=== PATIENT | female | born 1960 | race Caucasian/White ===

== ENCOUNTER 2023-02-12 19:49 | Outpatient (REF) | payer OTHER, SELFPAY ==
[2023-02-19 09:12] LABS: Age Gdln ACOG Testing Note (.); HPV Aptima Negative (Negative); IGP, Aptima HPV, rfx 16/18,45 Note (.)
== END 2023-02-12 19:50 | disposition home or self-care (01) ==
LOC: LAB 19:49
PROVIDERS: PCP Family Medicine; Visit Provider Physician Assistant
DX: Z12.4 Encounter for screening for malignant neoplasm of cervix (principal)
CPT/HCPCS: 87624; G0145

== ENCOUNTER 2023-12-28 07:45 | Outpatient (OUT) | payer OTHER, SELFPAY ==
--- NOTE | 2023-12-28 07:47 | MM_ITS ---
Patient Name: RUY NUNEZ MR#: [id number] : 1960 Exam Date: 12/28/2023 Ordering Doctor: DR Ramon Andrew . RADIOLOGY REPORT PROCEDURE: MM TOMOSYNTHESIS SCREENING BI COMPARISON: MG MAMM SCREEN 3D KAE CAD, 12/25/2021. MG MAMM SCREEN 3D KAE CAD, 12/26/2022. INDICATIONS: Screening Calculator Name NCI Breast Cancer Risk Assessment Tool 5 Year Breast Cancer Risk 1.40% Lifetime Breast Cancer Risk 5.80% Personal Breast Cancer No Personal Ovarian Cancer No Treatments None Family Cancers Father with colon cancer at age 48. LOCATION: [facility] BREAST COMPOSITION: There are scattered areas of fibroglandular density. FINDINGS: DIAGNOSTIC CATEGORY 2--BENIGN FINDING. NO CHANGE FROM COMPARISON. Scattered benign-appearing calcifications are present. RIGHT BREAST: No significant suspicious finding. LEFT BREAST: No significant suspicious finding. Stable focal asymmetry upper inner quadrant, mid breast RECOMMENDATIONS: ROUTINE MAMMOGRAM AND CLINICAL EVALUATION IN 12 MONTHS. PLEASE NOTE: A NORMAL MAMMOGRAM DOES NOT EXCLUDE THE POSSIBILITY OF BREAST CANCER. A CLINICALLY SUSPICIOUS PALPABLE LUMP SHOULD BE BIOPSIED. Dictated by: Prince Us MD on 12/28/2023 at 09:59 Approved by: Prince Us MD on 12/28/2023 at 10:01
== END 2023-12-28 07:46 | disposition home or self-care (01) ==
LOC: MAMMO 07:45
PROVIDERS: PCP Family Medicine; Visit Provider Family Medicine
DX: Z12.31 Encounter for screening mammogram for malignant neoplasm of breast (principal); Z80.0 Family history of malignant neoplasm of digestive organs
CPT/HCPCS: 77063; 77067

== ENCOUNTER 2024-01-14 07:25 | Outpatient (OUT) | payer OTHER, SELFPAY ==
--- OUTSIDE RECORDS SUMMARY | 2024-01-14 07:29 | XMS_ITS | CCD ---
Author Organization [facility] Care Team Providers Care Economic Adviser Name Role Phone MACI ., DR MENDOZA Primary Care Unavailable MACI ., DR MENDOZA Consulting Unavailable MACI Baptiste, DR MENDOZA Attending Unavailable MACI ., DR MENDOZA Admitting Unavailable WES, DR LASHA Stevens Consulting Unavailable Problems Problem Classification Problem Date Documented Da te Episodic/Chronic Other screening for suspected conditions (not mental disorders or infectious disease) (4 sources) Encounter for screening mammogram for malignant neoplasm of breast; Translations: [ENC SCR MAMMO MALIG NEOPLASM BREAST] Onset: 12-26-2022 Episodic Residual codes; unclassified (1 source) Family history of malignant neoplasm of digestive organs; Translations: [FAM HX MALIG NEOPLASM DIGESTIV ORGN] Onset: 12-31-2022 Episodic Results Test Name Value Interpretation Reference Range Facil ity MG MAMM SCREEN 3D KAE CADon 12-26-2022 MG MAMM SCREEN 3D KAE CAD Patient: RUY NUNEZ. Exam Date: 12/26/2022 : 1960 Gender:F Ordering : DR KELLY LUX . Admission #: [id number] Family : Order #: [id number] CLICK HERE TO VIEW EXAM RADIOLOGY REPORT PROCEDURE: MAMMOGRAM SCREENING 3D BILATERAL CAD COMPARISON: MG MAMM SCREEN 3D KAE CAD, 12/25/2021. MG MAMM SCREEN 3D KAE CAD, 12/06/2020. MG MAMM SCREEN KAE W CAD, 11/19/2018. MG MAMM SCREEN KAE W CAD, 11/17/2017. INDICATIONS: Screening mammography Calculator Name NCI Breast Cancer Risk Assessment Tool 5 Year Breast Cancer Risk 1.40% Lifetime Breast Cancer Risk 6.00% Personal Breast Cancer No Personal Ovarian Cancer No Treatments None Family Cancers Father with colon cancer at age 48. LOCATION: [facility] BREAST COMPOSITION: Scattered areas fibroglandular density. FINDINGS: DIAGNOSTIC CATEGORY 2--BENIGN FINDING: RIGHT BREAST: No significant suspicious finding. No significant change has occurred. LEFT BREAST: No significant suspicious finding. Scattered benign-appearing lymph nodes are present. No significant change has occurred. RECOMMENDATIONS: ROUTINE MAMMOGRAM AND CLINICAL EVALUATION IN 12 MONTHS. PLEASE NOTE: A NORMAL MAMMOGRAM DOES NOT EXCLUDE THE POSSIBILITY OF BREAST CANCER. A CLINICALLY SUSPICIOUS PALPABLE LUMP SHOULD BE BIOPSIED. Dictated by: Lasha Hernandez M.D. on 12/29/2022 at 11:48 Approved by: Lasha Hernandez M.D. on 12/29/2022 at 11:[address] [facility] Encounters Encounter Date Encounter Type Care Provider Facility Start: 12-26-2022 End: 12-27-[address] KELLY LUX . Facility: Payers Date Payer Category Payer Unknown [id number] Unknown [id number] Summary Purpose Family History No Family History Records Found Advance Directives No Advanced Directives Records Found Additional Source Comments INFORMATION SOURCE (unrecogn ized section and content) DATE CREATED AUTHOR 01/01/2023 [facility] FOR RECORDS PERTAINING TO PATIENTS WHO ARE OR HAVE BEEN ENROLLED IN A CHEMICAL DEPENDENCY/SUBSTANCEABUSE PROGRAM, SOME INFORMATION MAY BE OMITTED. This clinical summary was aggregated from multiple sources. Caution should be exercised in using it in the provision of clinical care. This summary normalizes information from multiple sources, and as a consequence, information in this document may materially change the coding, format and clinical context of patient data. In addition, data may be omitted in some cases. CLINICAL DECISIONS SHOULD BE BASED ON THE PRIMARY CLINICAL RECORDS. [employer] provides no warranty or guarantee of the accuracy or completeness of information in this document.
[2024-01-14 07:43] LABS: Basophils Absolute Auto 0.1 10^3/uL (0.0-0.1); Basophils Percent Auto 1.2 % (0.2-2.0); Eosinophils Absolute Auto 0.3 10^3/uL (0.0-0.7); Eosinophils Percent Auto 4.4 % (0.9-7.0); Hematocrit 39.4 % (36.0-48.0); Immature Granulocytes Abs Auto 0.02 10^3/uL (0.00-0.03); Immature Granulocytes Pct Auto 0.3 % (0.0-0.5); Lymphocytes Absolute Auto 2.3 10^3/uL (1.2-3.8); Lymphocytes Percent Auto 34.6 % (20.5-60.0); Mean Corpuscular Hemoglobin 30.3 pg (26.7-34.0); Mean Corpuscular Volume 91.8 fL (81.0-99.0); Mean Platelet Volume 8.6 fL (9.5-13.5); Monocytes Absolute Auto 0.5 10^3/uL (0.3-0.8); Monocytes Percent Auto 7.4 % (1.7-12.0); Neutrophils Absolute Auto 3.4 10^3/uL (1.4-6.5); Neutrophils Percent Auto 52.1 % (43.0-75.0); Platelet Count 262 10^3/uL (150-450); Red Blood Count 4.29 10^6/uL (4.20-5.40); White Blood Count 6.5 10^3/uL (4.0-11.0)
[2024-01-14 08:11] LABS: Estimated Average Glucose 117 mg/dL; Glycohemoglobin A1C 5.7 % (4.5-6.2)
[2024-01-14 10:19] LABS: Alanine Aminotransferase 25 U/L (14-59); Albumin Level 3.6 g/dL (3.4-5.0); Alkaline Phosphatase 59 U/L (46-116); Anion Gap 12.2; Aspartate Amino Transferase 16 U/L (15-37); BUN Creatinine Ratio 23.5; Bilirubin Total 0.5 mg/dL (0.2-1.0); Calcium 9.2 mg/dL (8.5-10.1); Chloride 107 mmol/L (98-107); Cholesterol 143 mg/dL (<=200); Estimated GFR (African America >60 (>=60); Estimated GFR (Non-African Ame >60 (>=60); Globulin 3.6 g/dL; Glucose 117 mg/dL (74-106); HDL Cholesterol 48 mg/dL (40-60); LDL Cholesterol Calculated 70.6 mg/dL; Potassium 4.2 mmol/L (3.5-5.1); Sodium 143 mmol/L (136-145); Thyroid Stimulating Hormone 1.654 uIU/mL (0.358-3.740); Total Protein 7.2 g/dL (6.4-8.2); Triglycerides 122 mg/dL (<=150); VLDL CHOLESTEROL 24.4 mg/dL
== END 2024-01-14 07:26 | disposition home or self-care (01) ==
LOC: LAB 07:27
PROVIDERS: PCP Family Medicine; Visit Provider Family Medicine
DX: E78.5 Hyperlipidemia, unspecified (principal); D64.9 Anemia, unspecified; Z79.899 Other long term (current) drug therapy; R53.83 Other fatigue
CPT/HCPCS: 36415; 80053; 80061; 83036; 83540; 84436; 84443; 84481; 85025

== ENCOUNTER 2024-04-14 18:35 | Outpatient (REF) | payer OTHER, SELFPAY ==
--- OUTSIDE RECORDS SUMMARY | 2024-04-14 18:40 | XMS_ITS | CCD ---
Author Organization [facility] Care Team Providers Care Assistant Cook Name Role Phone MACI ., DR MENDOZA [...] : DR KELLY LUX . Admission #: [id number] Family : Order #: [id number] CLICK HERE TO VIEW EXAM RADIOLOGY REPORT [...] colon cancer at age 47. LOCATION: [facility] BREAST COMPOSITION: Scattered areas fibroglandular density. FINDINGS: [...] Hernandez M.D. on 12/29/2022 at 11:50 Normal [facility] Encounters Encounter Date Encounter Type Care Provider Facility Start: 12-26-2022 End: 12-27-[address] KELLY LUX . Facility: Payers Date Payer Category Payer Unknown [id number] Unknown [id number] Summary Purpose Family History No Family History Records Found Advance Directives No Advanced Directives Records Found Additional Source Comments INFORMATION SOURCE (unrecogn ized section and content) DATE CREATED AUTHOR 01/01/2023 [facility] FOR RECORDS PERTAINING TO PATIENTS WHO [...] BE BASED ON THE PRIMARY CLINICAL RECORDS. [employer] provides no warranty or guarantee of the accuracy or completeness of information in this document.
[2024-04-20 08:13] LABS: Age Gdln ACOG Testing Note (.); HPV Aptima Negative (Negative); IGP, Aptima HPV, rfx 16/18,45 Note (.)
== END 2024-04-14 18:36 | disposition home or self-care (01) ==
LOC: LAB 18:35
PROVIDERS: PCP Family Medicine; Visit Provider Obstetrics & Gynecology
DX: Z01.419 Encounter for gynecological examination (general) (routine) without abnormal findings (principal)
CPT/HCPCS: 88175

== ENCOUNTER 2024-04-22 07:43 | Outpatient (OUT) | payer OTHER, SELFPAY ==
--- OUTSIDE RECORDS SUMMARY | 2024-04-22 07:45 | XMS_ITS | CCD ---
Author Organization [facility] Care Team Providers Care Directional Survey Drafter Name Role Phone MACI Baptiste, DR MENDOZA Primary Care Unavailable MACI ., DR MENDOZA Consulting Unavailable MACI Baptiste, DR MENDOZA Attending Unavailable MACI ., DR MENDOZA Admitting Unavailable WES, DR LASHA Stevens Consulting Unavailable SHANDA PARR Attending Unavailable Problems Problem Classification Problem Date Documented [...] : DR KELLY LUX . Admission #: [id number] Family : Order #: [id number] CLICK HERE TO VIEW EXAM RADIOLOGY REPORT [...] colon cancer at age 47. LOCATION: [facility] BREAST COMPOSITION: Scattered areas fibroglandular density. FINDINGS: [...] Hernandez M.D. on 12/29/2022 at 11:50 Normal [facility] Encounters Encounter Date Encounter Type Care Provider Facility Start: 04-14-2024 End: 04-14-2024 ambulatory SHANDA PARR Not Available Start: 12-26-2022 End: 12-27-[address] KELLY LUX . Facility: Payers Date Payer Category Payer Unknown [id number] 1960 Unknown [id number] 1960 Unknown [id number] Unknown [id number] Summary Purpose Family History No Family History Records FoundNo Family History Records Found Advance Directives No Advanced Directives Records FoundNo Advanced Directives Records Found Additional Source Comments INFORMATION SOURCE (unrecogn ized section and content) DATE CREATED AUTHOR 01/01/2023 [facility] DATE CREATED AUTHOR AUTHOR'S ORGANIZ ATION 04/16/2024 [facility] FOR RECORDS PERTAINING TO PATIENTS WHO ARE [...] BE BASED ON THE PRIMARY CLINICAL RECORDS. [employer] provides no warranty or guarantee of the accuracy or completeness of information in this document.
--- NOTE | 2024-04-22 07:50 | XR_ITS ---
[address] [address] Patient Name: RUY NUNEZ MRN: [id number] date: 1960 Sex: F Assigned Patient Location: [facility] Current Patient Location: Accession/Order Number: [id number] Exam Date: 04/22/2024 07:55 Report Date: 04/26/2024 04:25 At the request of: SHANDA PARR Procedure: XR DEXA axial skeleton EXAMINATION: XR DEXA axial skeleton HISTORY: Postmenopausal State Z78.0 COMPARISON: DEXA bone densitometry 11/17/2018 TECHNIQUE: Dual-energy X-ray absorptiometry (DXA) was performed. FINDINGS: SPINE ANALYSIS: Average bone mineral density is 0.853 g/cm2. T-score (standard deviation relative to young adult mean): -2.7 . +3.1% change since prior study. HIP ANALYSIS: Lowest bone mineral density is within the right femoral neck, 0.873 g/cm2. T-score (standard deviation relative to young adult mean): -1.2 . -2.0% change since prior study. XR/XR DEXA axial skeleton IMPRESSION: World Health Organization Classification: Osteoporosis - High Fracture Risk FRAX: Cannot calculate. Pharmacologic treatment recommendations * No uniform recommendation applies to all patients. Management plans must be individualized. * Consider initiating pharmacologic treatment in postmenopausal women and men >= 50 years of age who have the following: Primary fracture prevention: * T-score <= - 2.5 at the femoral neck, total hip, lumbar spine, 33% radius (some uncertainty with existing data) by DXA. * Low bone mass (osteopenia: T-score between - 1.0 and - 2.5) at the femoral neck or total hip by DXA with a 10-year hip fracture risk >= 3% or a 10-year major osteoporosis-related fracture risk >= 20% (i.e., clinical vertebral, hip, forearm, or proximal humerus) based on the [place]-adapted FRAXregistered model. Secondary fracture prevention: * Fracture of the hip or vertebra regardless of BMD [4, 5]. * Fracture of proximal humerus, pelvis, or distal forearm in persons with low bone mass (osteopenia: T-score between - 1.0 and - 2.5). The decision to treat should be individualized in persons with a fracture of the proximal humerus, pelvis, or distal forearm who do not have osteopenia or low BMD [12, 13]. Zoran MS, Simone SL, Joel KL, Elise EM, Eric KG, AJ, Mustapha ES. The clinician's guide to prevention and treatment of osteoporosis. Osteoporos Int. 2021;33(10):5952-5175. doi: 10.1007/c76259-821-38171-l. Epub 2021Dec 19. Erratum in: Osteoporos Int. 2021Mar 20;: PMID: [id number]; PMCID: [id number]. Electronically authenticated by: MANDY HARVEY Date: 04/26/2024 04:25
== END 2024-04-22 07:44 | disposition home or self-care (01) ==
LOC: RAD 07:43
PROVIDERS: PCP Family Medicine; Visit Provider Obstetrics & Gynecology
DX: M81.0 Age-related osteoporosis without current pathological fracture (principal); Z78.0 Asymptomatic menopausal state
CPT/HCPCS: 77080

== ENCOUNTER 2024-06-01 07:34 | Outpatient (RCR) | payer OTHER, SELFPAY ==
[2024-06-01 08:21] VITALS: BP 101/63; PULSE 73; TEMP 37; O2SAT 96
[2024-06-01 08:24] LABS: Calcium 9.2 mg/dL (8.5-10.1); Estimated GFR (African America >60 (>=60 mL/min/1.73m^2); Estimated GFR (Non-African Ame 55 (>=60 mL/min/1.73m^2)
[2024-06-01] MEDS: DENOSUMAB 60 MG/ML SYRINGE SUBQ (09:13)
== END 2024-06-23 23:59 | disposition home or self-care (01) ==
LOC: INF 07:34
PROVIDERS: PCP Family Medicine; Visit Provider Obstetrics & Gynecology
DX: M81.0 Age-related osteoporosis without current pathological fracture (principal); Z78.0 Asymptomatic menopausal state
CPT/HCPCS: 36415; 82310; 82565; 96372; J0897

== ENCOUNTER 2024-12-05 07:32 | Outpatient (RCR) | payer MEDICARE, SELFPAY ==
[2024-12-05 09:05] VITALS: BP 103/59; PULSE 79; TEMP 37.1; O2SAT 95
[2024-12-05 09:12] LABS: Calcium 8.7 mg/dL (8.5-10.1); Estimated GFR (African America >60 (>=60 mL/min/1.73m^2); Estimated GFR (Non-African Ame >60 (>=60 mL/min/1.73m^2)
[2024-12-05] MEDS: DENOSUMAB 60 MG/ML SYRINGE SUBQ (09:39)
== END 2024-12-05 11:32 | disposition home or self-care (01) ==
LOC: LAB 07:32
PROVIDERS: PCP Family Medicine; Visit Provider Obstetrics & Gynecology
DX: Z51.81 Encounter for therapeutic drug level monitoring (principal); M81.0 Age-related osteoporosis without current pathological fracture
CPT/HCPCS: 36415; 82310; 82565; 96372; J0897

== ENCOUNTER 2025-01-02 07:49 | Outpatient (OUT) | payer MEDICARE, SELFPAY ==
--- NOTE | 2025-01-02 07:54 | MM_ITS ---
Patient Name: RUY NUNEZ MR#: [id number] : 1960 Exam Date: 01/02/2025 Ordering Doctor: DR KELLY LUX . RADIOLOGY REPORT PROCEDURE: MM TOMOSYNTHESIS SCREENING BI COMPARISON: MM TOMOSYNTHESIS SCREENING BI, 12/28/2023. MG MAMM SCREEN 3D KAE CAD, 12/26/2022. MG MAMM SCREEN 3D KAE CAD, 12/25/2021. MG MAMM SCREEN KAE W CAD, 11/17/2017. INDICATIONS: Screening Calculator Name NCI Breast Cancer Risk Assessment Tool 5 Year Breast Cancer Risk 1.50% Lifetime Breast Cancer Risk 5.60% Personal Breast Cancer No Personal Ovarian Cancer No Treatments None Family Cancers Father with colon cancer at age 48. LOCATION: [facility] BREAST COMPOSITION: There are scattered areas of fibroglandular density. FINDINGS: DIAGNOSTIC CATEGORY 0--INCOMPLETE: NEED ADDITIONAL IMAGING EVALUATION. RIGHT BREAST: No significant suspicious finding. LEFT BREAST: Asymmetry superior aspect of the left breast posterior depth on MLO view only. RECOMMENDATIONS: ADDITIONAL MAMMOGRAPHIC VIEWS REQUIRED: LEFT BREAST - spot-compression/true lateral views, possible ultrasound recommended. PLEASE NOTE: A NORMAL MAMMOGRAM DOES NOT EXCLUDE THE POSSIBILITY OF BREAST CANCER. A CLINICALLY SUSPICIOUS PALPABLE LUMP SHOULD BE BIOPSIED. Dictated by: Sami Russo DO on 01/02/2025 at 15:35 Approved by: Sami Russo DO on 01/02/2025 at 15:41
--- OUTSIDE RECORDS SUMMARY | 2025-01-02 08:07 | XMS_ITS | CCD ---
Author Organization [facility] Care Team Providers Care Level Vial Inspector And Tester Name Role Phone DR KELLY KENDALL Primary Care Unavailable MACI Baptiste, DR MENDOZA Consulting Unavailable DR KELLY KENDALL Attending Unavailable MACI Baptiste, DR MENDOZA Admitting Unavailable WES, DR LASHA Stevens Consulting Unavailable SHANDA PHILIP Attending Unavailable Kelly Andrew MD Primary Care Provider [phone] Medications Current Medications Medication Drug Class(es) Dates Sig (Normalized) Sig (Original) ascorbic acid 60 mg / cholecalciferol 0.01 mg / folic acid 0.3 mg / niacin 13.5 mg / riboflavin 1.2 mg / sodium fluoride 0.55 mg / thiamine 1.05 mg / vitamin a 0.75 mg / vitamin b12 0.0045 mg / vitamin b6 1.05 mg / vitamin e 6.75 mg chewable tablet (6 sources) Nicotinic Acid, Vitamin A, Vitamin B12, Vitamin D, Vitamin C Pediatric Multivitamins-Fl (MultiVitamin + Fluoride) 0.25 MG chewable tablet Multivitamin Active atorvastatin 20 mg oral tablet (6 sources) HMG-CoA Reductase Inhibitor Start: 10-14-2024 take 1 tablet by mouth once daily in the evening atorvastatin (Lipitor) 20 MG tablet Indications: Hyperlipidemia, unspecified hyperlipidemia type (CMS/HCC) TAKE 1 TABLET BY MOUTH EVERY DAY IN THE EVENING 90 tablet 2 10/14/2024 Active Start: 02-29-2024 take 1 tablet by akil th once daily in the evening atorvastatin (Lipitor) 20 MG tablet Indications: Hyperlipidemia, unspecified hyperlipidemia type (CMS/HCC) TAKE 1 TABLET BY MOUTH EVERY DAY IN THE EVENING 90 tablet 02/29/2024 Active citalopram 20 mg oral tablet (6 sources) Serotonin Reuptake Inhibitor Start: 02-15-2024 End: 07-11-2025 take 1 tablet by mouth in the morning citalopram (CeleXA) 20 MG tablet Indications: Anxiety, generalized (CMS/HCC) Take 1 tablet (20 mg) by mouth in the morning. 90 tablet 2 10/14/2024 07/11/2025 Active Problems Active Problems Problem Classification Problem Date Documented Da te Episodic/Chronic Residual codes; unclassified (1 source) Family history of malignant neoplasm of digestive organs; Translations: [FAM HX MALIG NEOPLASM DIGESTIV ORGN] Onset: 12-31-2022 Episodic Past or Other Problems Problem Classification Problem Date Documented Date Episodic/Chronic Other screening for suspected conditions (not mental disorders or infectious disease) (6 sources) Encounter for screening mammogram for malignant neoplasm of breast; Translations: [Patient encounter status] Onset: 12-26-2022 Episodic Residual codes; unclassified (2 sources) Postmenopausal state; Translations: [Asymptomatic menopausal state] 04-14-2024 Episodic Results Test Name Value Interpretation Reference Range Facility [facility] CALCIUMon 12-05-2024 Calcium [Mass/Vol] 8.7 mg/dL 8.5 - 10. 1 mg/dL [facility] No Panel Informationon 12-05 [facility] CREATININEon 12-05-2024 Creatinine [Mass/Vol] 0.92 mg/dL 0.55 - 1.02 mg/dL [facility] GFR/1.73 sq M.predicted CKD-EPI (S/P/Bld) [Vol rate/Area] >60 >=60 mL/min/1.73m 2 [facility] EGFR-NON AF CITIZ[place] >60 >=60 mL/min/1.73m 2 [facility] CALCIUMon 06-01-2024 Calcium [Mass/Vol] 9.2 mg/dL 8.5 - 10. 1 mg/dL [facility] No Panel Informationon 06-01 [facility] CREATININEon 06-01-2024 Creatinine [Mass/Vol] 1.01 mg/dL 0.55 - 1.02 mg/dL [facility] GFR/1.73 sq M.predicted CKD-EPI (S/P/Bld) [Vol rate/Area] >60 >=60 mL/min/1.73m 2 [facility] Interpretation and review of laboratory results Abnormal [facility] EGFR-NON AF CITIZ[place] 55 Low >=60 mL/min/1.73m 2 [facility] IGP,APTIMA HPV,AGE GDLNon AGE GDLN ACOG TESTING Note . [facility] Comment on above: TESTS RESULT FLAG UN ITS REF RANGE LAB Clinician Provided Cytology Information Source.............Vagina No. of containers..01 ThinPrep Vial Age Algo ACOG Nathalie... FLAG LEGEND: L-Low Normal,H-High Normal,LL-Alert Low,HH-Alert High <-Panic Low,>-Panic High,A-Abnormal,AA-Critical Abnormal Performed at: 01 =G [address] [address] Fela Avendano MD, HPV APTIMA Negative Negative [facility] Comment on above: This nucleic acid am plification test detects fourteen high- risk HPV types (16,18,31,33,35,39,45,51,52,56,58,59,66,68) without differentiation. Performed at: =[address] [id number] Furniture Crater: Fela Avendano MD, Phone: [phone] Performed at: [address] [id number] Furniture Crater: Fela Avendano MD, Phone: [phone] IGP, APTIMA HPV, RFX 16/18,45 Note . [facility] Comment on above: TESTS RESULT FLAG UN ITS REF RANGE LAB DIAGNOSIS: 02 NEGATIVE FOR INTRAEPITHELIAL LESION OR MALIGNANCY. Specimen adequacy: 02 Satisfactory for evaluation. Performed by: Teodoro Leach Surveying Crew Stake Runner (ASC) . 02 Note: Note 02 The Pap smear is a screening test designed to aid in the detection of premalignant and malignant conditions of the uterine cervix. It is not a diagnostic procedure and should not be used as the sole means of detecting cervical cancer. Both false-positive and false-negative reports do occur. Test Methodology: Note 02 This liquid based ThinPrep(R) pap test was screened with the use of an image guided system. HPV Genotype Reflex Note 02 Criteria not met, HPV Genotype not performed. FLAG LEGEND: L-Low Normal,H-High Normal,LL-Alert Low,HH-Alert High <-Panic Low,>-Panic High,A-Abnormal,AA-Critical Abnormal Performed at: 02 [facility] [address] [place] [address] Fela Avendano MD, SPATULA-ALONE VAGINA [facility]M SCREEN 3D KAE CADon 12-26-2022 MG MAMM SCREEN 3D KAE CAD Patient: PINO NEALSe Tapia Exam Date: 12/26/2022 : 1960 Gender:F Ordering : DR KELLY ANDREW . Admission #: [id number] Family : Order #: [id number] CLICK HERE TO VIEW EXAM RADIOLOGY REPORT [...] colon cancer at age 47. LOCATION: [facility] BREAST COMPOSITION: Scattered areas fibroglandular density. [...] M.D. on 12/29/2022 at 11:[address] [facility] Vital Signs Date Time Vital Sign Value Performing Clinician Marie benitez 04-14-2024 10:04-0400 Body height 167.6 cm [employer] Work Phone: [facility] 04-14-2024 10:04-0400 Body mass index (BMI) [Ratio] 27.76 kg/m2 [employer] Work Phone: [facility] 04-14-2024 10:04-0400 Body weight 78.02 kg [employer] Work Phone: [facility] 04-14-2024 10:04-0400 Diastolic blood pressure 64 mm[Hg] [employer] Work Phone: [facility] 04-14-2024 10:04-0400 Systolic blood pressure 110 mm[Hg] Shanda Cedrick DO Work Phone: [facility] Encounters Encounter Date Encounter Type Care Provider Facility Start: 12-05-2024 End: 12-05-2024 [facility] Result Encounter Shanda Cedrick DO Work Phone: [facility] Unsolicited Start: 12-05-2024 End: 12-05-2024 [facility] Result Encounter Shanda Cedrick DO Work Phone: [facility]solic[facility] Start: 06-01-2024 End: 06-01-2024 [facility] Result Encounter Shanda Cedrick DO Work Phone: [facility] Unsolicited Start: 06-01-2024 End: 06-01-2024 [facility] Result Encounter Shanda Cedrick DO Work Phone: [facility]solic[facility] Start: 04-14-2024 End: 04-14-2024 Bamboo flowsheet Shanda Cedrick DO Work Phone: [facility] Start: 04-14-2024 End: 04-20-2024 Bamboo flowsheet Shanda Cedrick DO Work Phone: [facility] Start: 04-14-2024 End: 04-20-2024 [facility] Result Encounter Shanda Cedrick DO Work Phone: [facility]solicited Start: 04-14-2024 End: 04-14-2024 Patient encounter procedure Shanda Cedrick DO Work Phone: [facility] Start: 04-14-2024 End: 04-14-2024 Periodic preventive med est patient 65yrs& older Shanda Cedrick DO Work Phone: [facility] Comment on above: Well woman exam with routine gynecological exam; Postmenopausal state; Breast cancer screening by mammogram Start: 04-14-2024 End: 04-14-2024 ambulatory SHANDA CEDRICK Not Available Start: 12-26-2022 End: 12-27-[address] KELLY ANDREW . Facility:[facility] Procedures Date Procedure Procedure Detail Performing Clinician Start: 12-05-2024 [facility] CALCIUM Shanda Fazi o DO Work Phone: Start: 12-05-2024 [facility] CREATININE Shanda Fa zio DO Work Phone: Start: 06-01-2024 [facility] CALCIUM Shanda Fazi o DO Work Phone: Start: 06-01-2024 [facility] CREATININE Shanda Fa zio DO Work Phone: Start: 04-14-2024 IGP,APTIMA HPV,AGE GDLN Shanda Cedrick DO Work Phone: Plan of Treatment Date Care Activity Detail Author Start: 04-14-2024 End: 04-14-2025 DXA Skeletal system Views for bone density DEXA bone density Imaging Routine Postmenopausal state Expected: 04/14/2024 (Approximate), Expires: [facility]14[facility]20[facility] Work Phone: Comment on above: Expected: 04/14/2024 (Approximate), Expires: 04/14/2025 Start: 04-14-2024 End: 04-14-2024 Patient encounter procedure 04/14/2024 10:00 AM EDT Office Visit [facility] [address] [place] [address] Cedrick Shanda, DO [address] [place] [address] Arrived [facility] Comment on above: Arrived THIN PREP TIS PAP AN D HR HPV DNA THIN PREP TIS PAP AND HR HPV DNA Pathology and Cytology Routine Well woman exam with routine gynecological exam Ordered: 04/14/2024 [facility] Comment on above: Ordered: 04/14/2024 Payers Date Payer Category Payer Medicare (Managed Care) [facility] [id number] 2024 Unknown [employer] [id number] 2024-Present [address] [place] [address] [id number] 2024 Unknown [id number] 1960 Unknown [id number] 1960 Unknown [id number] Unknown [id number] Social History Date Type Detail Facility Tobacco smoking stat [facility] Tobacco smoking consumption unknown [facility] Start: 1960 Sex assigned at Female [facility] Start: 02-11-2023 Gender identity Identifies as female gender (finding) [facility] Start: 02-11-2023 Sexual orientation Heterosexual (fin ding) [facility] History of Present illness Narrative 04-14-2024 Ilene Alicea LPN - 04/14/2024 10:00 AM EDT Note Date & Type Note Facility 04-14-2024 History of Presen t illness Narrative Reason for Appointment: Patient ID: Marcie Neal is a 64 y.o. female who presents for Well Women Visit Patient presents today for Annual Exam. MEDICATIONS Current Outpatient Medications Medication Instructions atorvastatin (LIPITOR) 20 mg, Oral, Every evening citalopram (CELEXA) 20 mg, Oral, Every morning Pediatric Multivitamins-Fl (MultiVitamin + Fluoride) 0.25 MG chewable tablet Multivitamin ALLERGIES No Known Allergies PROBLEMS Active Ambulatory Problems Diagnosis Date Noted No Active Ambulatory Problems Resolved Ambulatory Problems Diagnosis Date Noted No Resolved Ambulatory Problems No Additional Past Medical History HISTORY PAST MEDICAL HISTORY SOCIAL HISTORY No past medical history on file. Social History Tobacco Use Smoking status: Not on file Smokeless tobacco: Not on file Substance Use Topics Alcohol use: Not on file Drug use: Not on file FAMILY HISTORY Family History Problem Relation Name Age of Onset No Known Problems Mother Colon cancer Father No Known Problems Daughter No Known Problems Son SURGICAL HISTORY Past Surgical History: Procedure Laterality Date HYSTERECTOMY UVULOPALATOPHARYNGOPLASTY REVIEW OF SYSTEMS Review of Systems: Review of Systems All other systems reviewed and are negative. OBJECTIVE Objective: Physical Exam Constitutional: Appearance: Normal appearance. She is well-developed. Genitourinary: Vulva normal. Vaginal cuff intact. Cervix is not absent. Uterus is not absent. Breasts: Breasts are soft. Right: Normal. Left: Normal. Cardiovascular: Rate and Rhythm: Normal rate and regular rhythm. Abdominal: General: Bowel sounds are normal. There is no distension. Palpations: Abdomen is soft. Tenderness: There is no abdominal tenderness. There is no guarding or rebound. Musculoskeletal: General: No swelling. Normal range of motion. Right lower leg: No edema. Left lower leg: No edema. Neurological: Mental Status: She is alert and oriented to person, place, and time. Skin: General: Skin is warm and dry. Psychiatric: Mood and Affect: Mood normal. Behavior: Behavior normal. Vitals and nursing note reviewed. Exam conducted with a crm coordinator present. Vitals: Estimated body mass index is 27.76 kg/m as calculated from the following: Height as of this encounter: 5' 6 . Weight as of this encounter: 172 lb. BP: 110/64 No LMP recorded. Patient has had a hysterectomy. ASSESSMENT & PLAN ICD-10-CM 1. Well woman exam with routine gynecological exam Z01.419 THIN PREP TIS PAP AND HR HPV DNA 2. Postmenopausal state Z78.0 DEXA bone density 3. Breast cancer screening by mammogram Z12.31 CANCELED: Bilateral screening mammogram CANCELED: Bilateral screening mammogram Annual: Patient presents today for an annual exam. Patient states she is doing well and has no complaints. Pap was obtained without difficulty and patient given DEXA Scan order to have scheduled/obtained. Orders Placed This Encounter Procedures DEXA bone density Follow Up: Patient is to return in one year for annual unless needed otherwise. Documented by Ilene Alicea LPN on behalf of: Shanda Philip DO documented in this encounter [facility] Evaluation note Note Date & Type Note Facility Evaluation note Diagnosis Well woman exam with routine gynecological exam Routine gynecological examination Postmenopausal state Asymptomatic postmenopausal status (age-related) (natural) Breast cancer screening by mammogram documented in this encounter [facility] Summary Purpose Family History No Family History Records FoundNo Family History Records Found Advance Directives No Advanced Directives Records FoundNo Advanced Directives Records Found Additional Source Comments INFORMATION SOURCE (unrecogn ized section and content) DATE CREATED AUTHOR 01/01/2023 [facility] DATE CREATED AUTHOR AUTHOR'S ORGANIZ ATION 04/16/2024 [facility] Care Teams (unrecognized sec tion and content) Level Vial Inspector And Tester Relationship Specialty Start Date End Date Kelly Andrew MD [address] [place] [address] PCP - General Family Medicine 02/12/23 Level Vial Inspector And Tester Relationship Specialty Start Date End Date Kelly Andrew MD [address] [place] [address] PCP - General Family Medicine 02/12/23 Level Vial Inspector And Tester Relationship Specialty Start Date End Date Kelly Andrew MD [address] [place] [address] PCP - General Family Medicine 02/12/23 Reason for Visit (unrecogniz ed section and content) Reason Comments Well Women Visit FOR RECORDS PERTAINING TO PATIENTS WHO ARE [...] BE BASED ON THE PRIMARY CLINICAL RECORDS. [facility]. provides no warranty or guarantee of the accuracy or completeness of information in this document.
== END 2025-01-02 07:50 | disposition home or self-care (01) ==
LOC: MAMMO 07:49
PROVIDERS: PCP Family Medicine; Visit Provider Family Medicine
DX: Z12.31 Encounter for screening mammogram for malignant neoplasm of breast (principal); Z80.0 Family history of malignant neoplasm of digestive organs; R92.8 Other abnormal and inconclusive findings on diagnostic imaging of breast
CPT/HCPCS: 77063; 77067

== ENCOUNTER 2025-05-09 09:54 | Outpatient (OUT) | payer MEDICARE, SELFPAY ==
--- OUTSIDE RECORDS SUMMARY | 2025-05-09 09:57 | XMS_ITS | Encounter Summary ---
Author Organization [facility] Address [address] [place] [address] Care Team Providers Care Sales Assistant Entertainment And Media Name Role Phone Ramon Andrew MD Primary Care Provider [phone] Encounter Details Date Type Department Care Team (Late st Contact Info) Description 05/11/2024 [facility] [address] [place] [address] [place] Philip DO [address] [address] Social History Tobacco Use Types Packs/Day Years Used Date Smoking Tobacco: Never Assessed Comments Unknown Sex and Gender Information Value Date Recorded Sex Assigned at Female 02/11/2023 7:59 PM EDT Legal Sex Female 7:03 PM EDT Gender Identity Female 02/11/2023 7:59 PM EDT Sexual Orientation Straight 02/11/2023 7: 59 PM EDT documented as of this encounter Plan of Treatment Not on file documented as of this encounter Visit Diagnoses Not on filedocumented in this encounter Care Teams Sales Assistant Entertainment And Media Relationship Specialty Start Date End Date Ramon Andrew MD PCP - General Family Medicine 02/12/23 documented as of this encounter
--- OUTSIDE RECORDS SUMMARY | 2025-05-09 09:57 | XMS_ITS | Encounter Summary ---
Author Organization [facility] Address [address] [facility] [place] [address] Care Team Providers Care Computerized Mill Mill Recorder Name Role Phone Ramon Andrew MD Primary Care Provider [phone] Encounter Details Date Type Department Care Team (Late st Contact Info) Description 05/11/2024 Abstract [facility] [address] [place] [address] [place] [id number] Ilene Alicea LPN Social History Tobacco Use Types Packs/Day Years [...] on filedocumented in this encounter Care Teams Computerized Mill Mill Recorder Relationship Specialty Start Date End Date Ramon Andrew MD PCP - General Family Medicine 02/12/23 documented as of this encounter
--- OUTSIDE RECORDS SUMMARY | 2025-05-09 09:57 | XMS_ITS | Clinical Summary ---
Author Organization [facility] Healthcare Address [address] [place] [facility] [address] Care Team Providers Care Barking Machine Feeder Name Role Phone Ramon Andrew MD Primary Care Provider [phone] Allergies No known active allergies Medications Pediatric Multivitamins-Fl (MultiVitamin + Fluoride) 0.25 MG chewable tablet Multivitamin A ctive atorvastatin (Lipitor) 20 MG tabletIndications: Hyperlipidemia, unspecified hyperlipidemia type TAKE 1 TABLET BY MOUTH EVERY DAY IN THE EVENING 90 tablet 2 10/14/19 25 Active citalopram (CeleXA) 20 MG tabletIndications: Anxiety, generalized Take 1 tablet (20 mg) by mouth in the morning. 90 tablet 2 10/14/19 25 07/11/ 025 Active Family History Medical History Relation Name Comments No Known Problems Daughter Colon cancer Father No Known Problems Mother No Known Problems Son Relation Name Status Comments Daughter Alive Father Mother Son Alive Social History Tobacco Use Types Packs/Day Years Used Date Smoking Tobacco: Never Assessed Comments Unknown Sex and Gender Information Value Date Recorded Sex Assigned at Female 02/11/2023 7:59 PM EDT Legal Sex Female 7:03 PM EDT Gender Identity Female 02/11/2023 7:59 PM EDT Sexual Orientation Straight 02/11/2023 7: 59 PM EDT Last Filed Vital Signs Vital Sign Reading Time Taken Comments Blood Pressure 110/64 04/14/2024 10:04 AM EDT Pulse - - Temperature - - Respiratory Rate - - Oxygen Saturation - - Inhaled Oxygen Concentration - - Weight 78 kg (172 lb) 04/14/2024 10:04 AM EDT Height 167.6 cm (5' 6 ) 04/14/2024 10:04 AM EDT Body Mass Index 27.76 04/14/2024 10:04 AM EDT Plan of Treatment Not on file Insurance [facility] Care Teams Barking Machine Feeder Relationship Specialty Start Date End Date Ramon Andrew MD PCP - General Family Medicine 02/12/23
--- OUTSIDE RECORDS SUMMARY | 2025-05-09 09:57 | XMS_ITS | Encounter Summary ---
Author Organization [facility] Address [address] [place] [address] Care Team Providers Care Milk Receiver Tank Truck Name Role Phone Ramon Andrew MD Primary Care Provider [phone] Encounter Details Date Type Department Care Team (Late st Contact Info) Description 05/12/2024 Abstract [facility] [address] [place] [address] [place] Philip DO [address] [place] [address] Social History Tobacco Use Types Packs/Day Years [...] on filedocumented in this encounter Care Teams Milk Receiver Tank Truck Relationship Specialty Start Date End Date Ramon Andrew MD PCP - General Family Medicine 02/12/23 documented as of this encounter
--- OUTSIDE RECORDS SUMMARY | 2025-05-09 10:06 | XMS_ITS | CCD ---
Author Organization [facility] Care Team Providers Care Bill Sorter Name Role Phone MACI Baptiste, DR MENDOZA Primary Care Unavailable MACI ., DR MENDOZA Consulting Unavailable MACI Baptiste, DR MENDOZA Attending Unavailable MACI ., DR MENDOZA Admitting Unavailable WES, DR LASHA Stevens Consulting Unavailable SHANDA PHILIP Attending Unavailable Kelly Lux MD Primary Care Provider [phone] Kelly Lux MD Primary Care Provider [phone] Kelly Lux MD Attending Provider Kelly Lux Attending Unavailable Kelly Lux Primary Care Unavailable Kelly Lux Admitting Unavailable Medications Current Medications Medication Drug Class(es) Dates Sig (Normalized) Sig (Original) alendronic acid 70 mg oral tablet (1 source) Bisphosphonate Start: 03-09-2018 take 1 tablet by mouth every week Alendronate 70 mg Tablet Active 70 MG PO every week March 09, 2018 12:00am Takes on Thursday morning ALPRAZolam 0.25 mg oral tablet (1 source) Benzodiazepine Start: 03-09-2018 Alprazolam 0.25 mg Tablet Active 0.25 MG PO 2-3 TIMES PER DAY as needed for Anxiety March 09, 2018 12:00am ascorbic acid 1000 mg oral tablet (1 source) Vitamin C Start: 03-09-2018 take 1 g by mouth once daily Ascorbic Acid (Vitamin C) (Vitamin C) 1,000 mg Tablet Active 1 GM PO Daily March 09, 2018 12:00am ascorbic acid 60 mg / cholecalciferol 0.01 [...] Multivitamin Active atorvastatin 20 mg oral tablet (9 sources) HMG-CoA Reductase Inhibitor Start: 10-14-2024 take [...] IN THE EVENING 90 tablet 02/29/2024 Active Start: 10-18-2023 End: 01-17-2024 take 1 tablet by mouth once daily in the evening Atorvastatin 20 mg tablet Active 0 .ROUTE .COMPLEX 90 January 17, 2024 3:49pm TAKE ONE TABLET BY MOUTH EVERY EVENING Start: 03-09-2018 End: 10-18-2023 take 1 tablet by mouth at bedtime Atorvastatin 20 mg tablet Discontinued 20 MG PO Bedtime March 09, 2018 12:00am October 18, 2023 7:29pm biotin 10 mg oral capsule (1 source) Start: 03-09-2018 take 1 capsule by mouth once daily Biotin 10,000 mcg Capsule Active 43666 MCG PO Daily March 09, 2018 12:00am calcium carbonate 1500 mg / cholecalciferol 0.01 mg oral tablet (1 source) Vitamin D Start: 03-09-2018 take 1 tablet by mouth once daily Calcium Carbonate-Vitamin D3 (Calcium 600 + D(3)) 600 mg(1,500mg) -400 unit Tablet Active 1 TAB PO Daily March 09, 2018 12:00am cholecalciferol 0.05 mg oral capsule (1 source) Vitamin D Start: 03-09-2018 take 1 capsule by mouth once daily Cholecalciferol (Vitamin D3) (Vitamin D3) 2,000 unit Capsule Active 2000 UNIT PO Daily March 09, 2018 12:00am citalopram 20 mg oral tablet (8 sources) Serotonin Reuptake Inhibitor Start: 03-09-2018 End: 11-18-2025 take 1 tablet by mouth in the morning citalopram (CeleXA) 20 MG tablet Indications: Anxiety, generalized (CMS/HCC) Take 1 tablet (20 mg) by mouth in the morning. 90 tablet 2 10/14/2024 07/11/2025 Active Start: 03-09-2018 take 1 tablet by akil th once daily Citalopram 10 mg tablet Active 10 MG PO Daily March 09, 2018 12:00am Multivitamin (Multiple Vitamins) Tablet (1 source) Start: 03-09-2018 take 1 tablet by mouth once daily in the morning Multivitamin (Multiple Vitamins) Tablet Active 1 TAB PO Every morning March 09, 2018 12:00am Completed/Discontinued Medications Medication Drug Class(es) Dates Sig (Normalized) Sig (Original) [place]-3 Fatty Acids-Fish Oil (1 source) Start: 03-09-2018 End: 03-12-2018 take 1 capsule by mouth once daily [place]-3 Fatty Acids-Fish Oil (Fish Oil) 300-1,000 mg Capsule Discontinued 1 CAP PO Daily March 09, 2018 12:00am March 12, 2018 9:28am Problems Active Problems Problem Classification Problem Date Documented Da te Episodic/Chronic Other screening for suspected conditions (not mental disorders or infectious disease) (7 sources) Encounter for screening mammogram for malignant neoplasm of breast; Translations: [Patient encounter status] Onset: 12-26-2022 Episodic Residual codes; unclassified (1 source) Family history of malignant neoplasm of digestive organs; Translations: [FAM HX MALIG NEOPLASM DIGESTIV ORGN] Onset: 12-31-2022 Episodic Past or Other Problems Problem Classification Problem Date Documented Da te Episodic/Chronic Residual codes; unclassified (2 sources) Postmenopausal state; Translations: [Asymptomatic menopausal state] 04-14-2024 Episodic Results Test Name Value Interpretation Reference Range Facility MM special view LT w/CADon 0 01-24-2025 MM special view LT w/CAD [facility] [address] [place] [address] Mammography Report Signed Patient: Marcie Neal MR#: [id number] : 1960 Acct:[id number] Age/Sex: 64 / F Adm Date: 01/24/25 Loc: [place] Room: Type: [facility] CLI Attending Dr: Kelly Lux MD Ordering Provider: Kelly Lux MD Date of Service: 01/24/25 Procedure(s): MM special view LT w/CAD Accession Number(s): ([id number]) MM/MM special view LT w/CAD: R92.8 Copies to: Kelly Lux MD DIAGNOSTIC LEFT MAMMOGRAM - FULL FIELD DIGITAL WITH TOMOSYNTHESIS CLINICAL DATA: Follow-up asymmetry in left breast Tomosynthesis mediolateral and spot compressed mediolateral oblique views of the left breast were obtained using low-dose digital technique. Comparison is made to prior studies from 01/02/2025, 12/28/2023, and 12/26/2022. This examination was reviewed with the aid of CAD. Scattered fibroglandular tissues noted. Spot compressed view demonstrates dissipation of the previous area of focal asymmetry. Benign-appearing calcification is noted. There are no dominant masses, typically malignant calcifications or architectural distortion. There has been no significant interval change. MM/MM special view LT w/CAD IMPRESSION: NO MAMMOGRAPHIC EVIDENCE OF MALIGNANCY. ROUTINE FOLLOW-UP IS RECOMMENDED IN ONE YEAR. RESULT CODE: 2 Benign Findings(s) DENSITY CODE: 2 (approximately 25-50% glandular) There are scattered areas of fibroglandular density. FOLLOW UP: 1YR The false-negative rate of mammography is approximately 10-percent. Management of a palpable abnormality must be based on clinical grounds. Impression dictated by: Blas Garcia M.D. 01/24/2025 2:21 PM Dictation Location: [facility] Dictated By: Blas Garcia II, MD 01/24/25 1357 Signed By: 01/24/25 1421 Normal [facility] Mammography reportOrdered By : Blas Garcia on 01-24-2025 Diagnostic imaging study [facility] [address] [place] [address] Mammography Report Signed Patient: Marcie Neal MR#: [id number] : 1960 Acct:[id number] Age/Sex: 64 / F Adm Date: 5 Loc: [place] Room: Type: [facility] CLI Attending Dr: Kelly Lux MD Ordering Provider: Kelly Lux MD Date of Service: 01/24/25 Procedure(s): MM special view LT w/CAD Accession Number(s): ([id number]) MM/MM special view LT w/CAD: R92.8 Copies to: Kelly Lux MD~ DIAGNOSTIC LEFT MAMMOGRAM - FULL FIELD DIGITAL WITH TOMOSYNTHESIS CLINICAL DATA: Follow-up asymmetry in left breast Tomosynthesis mediolateral and spot compressed mediolateral oblique views of the left breast were obtained using low-dose digital technique. Comparison is made to prior studies from 01/02/2025, 12/28/2023, and 12/26/2022. This examination was reviewed with the aid of CAD. Scattered fibroglandular tissues noted. Spot compressed view demonstrates dissipation of the previous area of focal asymmetry. Benign-appearing calcification is noted. There are no dominant masses, typically malignant calcifications or architectural distortion. There has been no significant interval change. MM/MM special view LT w/CAD IMPRESSION: NO MAMMOGRAPHIC EVIDENCE OF MALIGNANCY. ROUTINE FOLLOW-UP IS RECOMMENDED IN ONE YEAR. RESULT CODE: 2 Benign Findings(s) DENSITY CODE: 2 (approximately 25-50% glandular) There are scattered areas of fibroglandular density. FOLLOW UP: 1YR The false-negative rate of mammography is approximately 10-percent. Management of a palpable abnormality must be based on clinical grounds. Impression dictated by: Blas Garcia M.D. 01/24/2025 2:21 PM Dictation Location: [facility] Dictated By: Blas Garcia II, MD 01/24/25 8166 Signed By: 01/24/25 [facility] Work Phone: [facility] CALCIUMon 12-05-2024 Calcium [Mass/Vol] 8.7 mg/dL 8.5 - 10. 1 mg/dL [facility] [employer] No Panel Informationon 12-05 [facility] Health[facility] e TBH CREATININEon 12-05-2024 Creatinine [Mass/Vol] 0.92 mg/dL 0.55 - 1.02 mg/dL [facility] GFR/1.73 sq M.predicted CKD-EPI (S/P/Bld) [Vol rate/Area] >60 >=60 mL/min/1.73m 2 [facility] EGFR-NON AF SAUDI ARABIAN >60 >=60 mL/min/1.73m 2 [facility] CAL[facility]UMon 06-01-2024 Calcium [Mass/Vol] 9.2 mg/dL 8.5 - 10. 1 mg/dL [facility] No Panel Informationon 06-01 [facility]AT[facility] 06-01-2024 Creatinine [Mass/Vol] 1.01 mg/dL 0.55 - 1.02 mg/dL [facility] GFR/1.73 sq M.predicted CKD-EPI (S/P/Bld) [Vol rate/Area] >60 >=60 mL/min/1.73m 2 [facility] Interpretation and review of laboratory results Abnormal [facility] EGFR-NON AF SAUDI ARABIAN 55 Low >=60 mL/min/1.73m 2 [facility] IGP,APTIMA HPV,AGE GDLNon AGE GDLN ACOG TESTING Note . [facility] Comment on above: TESTS RESULT FLAG UN ITS REF RANGE LAB Clinician Provided Cytology Information Source.............Vagina No. of containers..01 ThinPrep Vial Age Algo ACOG Nathalie... 30-65 01 FLAG LEGEND: L-Low Normal,H-High Normal,LL-Alert Low,HH-Alert High <-Panic Low,>-Panic High,A-Abnormal,AA-Critical Abnormal Performed at: 01 =G [address] [place] [address] Fela Avendano MD, HPV APTIMA Negative Negative [facility] Comment on above: This nucleic acid am plification test detects fourteen high- risk HPV types (16,18,31,33,35,39,45,51,52,56,58,59,66,68) without differentiation. Performed at: =G - Lab[address], [place] [id number] Group Cio: Fela Avendano MD, Phone: [phone] Performed at: - [address], [place] [id number] Group Cio: Fela Avendano MD, Phone: [phone] IGP, APTIMA HPV, RFX 16/18,45 Note . [facility] Comment on above: TESTS RESULT FLAG UN ITS REF RANGE LAB DIAGNOSIS: 02 NEGATIVE FOR INTRAEPITHELIAL LESION OR MALIGNANCY. Specimen adequacy: 02 Satisfactory for evaluation. Performed by: Teodoro Leach, Private Household Worker (ASCP) . 02 Note: Note 02 The Pap [...] High,A-Abnormal,AA-Critical Abnormal Performed at: 02 [facility] [address] [facility] [place] [address] Fela Avendano MD, SPATULA-ALONE VAGINA [facility] MG MAMM SCREEN 3D KAE CADon 12-26-2022 MG MAMM SCREEN 3D KAE CAD Patient: MARCIE NEAL Exam Date: 12/26/2022 : 1960 Gender:F Ordering : DR KELLY LUX . Admission #: [id number] Family : Order #: [id number] CLICK HERE TO VIEW EXAM RADIOLOGY REPORT [...] colon cancer at age 47. LOCATION: [facility] BREAST COMPOSITION: Scattered areas fibroglandular density. [...] Hernandez M.D. on 12/29/2022 at 11:50 Normal [facility] Vital Signs Date Time Vital Sign Value Performing Clinician Faci lity 04-14-2024 10:04-0400 Body height 167.6 cm Shanda Cedrick DO Work Phone: [facility] 04-14-2024 10:04-0400 Body mass index (BMI) [Ratio] 27.76 kg/m2 Shanda Cedrick DO Work Phone: [facility] 04-14-2024 10:04-0400 Body weight 78.02 kg Shanda Cedrick DO Work Phone: [facility] 04-14-2024 10:04-0400 Diastolic blood pressure 64 mm[Hg] Shanda Cedrcik DO Work Phone: [facility] 04-14-2024 10:04-0400 Systolic blood pressure 110 mm[Hg] Shanda Cedrick DO Work Phone: [facility] Encounters Encounter Date Encounter Type Care Provider Facility Start: 01-24-2025 End: 01-24-2025 Patient encounter procedure Kelly Lux MD Work Phone: [facility] Work Phone: Start: 01-24-2025 End: 01-24-2025 ambulatory Kelly Lux MD Work Phone: [facility] Work Phone: Start: 12-05-2024 End: 12-05-2024 [facility] Result Encounter [...] Start: 04-14-2024 End: 04-14-2024 Patient encounter procedure Shadna Cedrick DO Work Phone: [facility] Start: 04-14-2024 End: 04-14-2024 Periodic preventive med est patient 65yrs& older Shanda Cedrick DO Work Phone: [facility] Comment on above: Well woman exam with routine gynecological exam; Postmenopausal state; Breast cancer screening by mammogram Start: 04-14-2024 End: 04-14-2024 ambulatory SHANDA CEDRICK Not Available Start: 12-26-2022 End: 12-27-[address] KELLY LUX . Facility: Procedures Date Procedure Procedure Detail Performing Clinician Start: 01-24-2025 Mammography of left breast Kelly Lux MD Work Phone: Start: 12-05-2024 [facility] CALCIUM Shanda Fazi o [...] Postmenopausal state Expected: 04/14/2024 (Approximate), Expires: 04/14/2025 [facility] Work Phone: Comment on above: Expected: 04/14/2024 (Approximate), Expires: 04/14/2025 Start: 04-14-2024 End: 04-14-2024 Patient encounter procedure 04/14/2024 10:00 AM EDT Office Visit [facility] [address] [address] Shanda Philip, DO [address] [place] [address] Arrived [facility] Comment on above: Arrived THIN PREP TIS PAP AN D HR HPV DNA THIN PREP TIS PAP AND HR HPV DNA Pathology and Cytology Routine Well woman exam with routine gynecological exam Ordered: 04/14/2024 [facility] Comment on above: Ordered: 04/14/2024 Immunizations Immunization Date Immunization Notes Care Provider bakari 07-28-2020 influenza virus vaccine, unspecified formulation Kelly Lux MD Work Phone: [facility] Payers Date Payer Category Payer Self-pay 2025 Unknown [id number] 2024 Medicare (Managed Care) [employer] [facility] [id number] 2024 Unknown [employer] [id number] 2024-Present [address] [place] [address] [id number] 2024 Unknown [id number] 1960 Unknown [id number] 1960 Unknown [id number] Unknown [id number] Unknown [employer] [id number] Unknown [id number] Social History Date Type Detail Facility Tobacco smoking stat [facility] Tobacco smoking consumption unknown [facility] Start: 1960 Sex assigned at Female [facility] Start: 02-11-2023 Gender identity Identifies as female gender (finding) [facility] Start: 02-11-2023 Sexual orientation Heterosexual (finding) [facility] Start: 04-22-2017 Tobacco smoking status [facility] Never smoked tobacco (finding) [facility] Start: 01-25-2025 Sex Female (finding) [facility] History of Present illness Narrative 04-14-2024 Ilene [...] nursing note reviewed. Exam conducted with a manager group present. Vitals: Estimated body mass index is [...] mammogram documented in this encounter [facility] Evaluation note Note Date & Type Note Facility Evaluation note No assessment information availa jp [facility] Work Phone: Summary Purpose Family History No Family History Records Found Relationship Condition Age at Onset Recorded Date/T marcus father Unknown Malignant neoplasm Unknown family member Unknown mother Hypertension Unknown Heart disease Unknown Advance Directives No Advanced Directives Records Found Advance Directive Response Recorded Date/ Time Advance Directives No March 08 10:50am Chief Complaint and Reason for Visit Chief Complaint Admit Date R92.8 January 24, 2025 1:31p m Additional Source Comments INFORMATION SOURCE (unrecogn ized section and content) DATE CREATED AUTHOR 01/01/2023 [facility] DATE CREATED AUTHOR AUTHOR'S ORGANIZ ATION 04/16/2024 [facility]ists EPIC DATE CREATED AUTHOR AUTHOR'S ORGANIZ ATION 03/14/2025 [facility] Care Teams (unrecognized sec tion and content) Bill Sorter Relationship Specialty Start Date End Date Kelly Lux MD [address] [place] [address] PCP - General Family Medicine 02/12/23 Bill Sorter Relationship Specialty Start Date End Date Kelly Lux MD [address] [place] [address] PCP - General Family Medicine 02/12/23 Bill Sorter Relationship Specialty Start Date End Date Kelly Lux MD [address] [place] [address] PCP - General Family Medicine 02/12/23 Team Status: Active Member Role Status Dates Kelly Lux MD Primary Care Provider Active Team Status: Inactive Member Role Status Dates Kelly Lux MD Primary Care Provide r, Attending Provider Active Start: January 24, 2025 End: January 24, 2025 Reason for Visit (unrecogniz ed section and content) Reason Comments Well Women Visit Goals (unrecognized section and content) Goals may be documented in a n alternate section FOR RECORDS PERTAINING TO PATIENTS WHO ARE [...] BE BASED ON THE PRIMARY CLINICAL RECORDS. [facility]. provides no warranty or guarantee of the accuracy or completeness of information in this document.
[2025-05-09 10:26] LABS: Hematocrit 41.8 % (36.0-48.0); Hemoglobin 14.1 g/dL (12.0-16.0); Immature Granulocytes Abs Auto 0.03 10^3/uL (0.00-0.03); Immature Granulocytes Pct Auto 0.5 % (0.0-0.5); Lymphocytes Absolute Auto 1.7 10^3/uL (1.2-3.8); Mean Corpuscular HGB Conc 33.7 g/dL (29.9-35.2); Mean Corpuscular Hemoglobin 30.9 pg (26.7-34.0); Mean Corpuscular Volume 91.5 fL (81.0-99.0); Platelet Count 280 10^3/uL (150-450); Red Blood Count 4.57 10^6/uL (4.20-5.40); White Blood Count 5.9 10^3/uL (4.0-11.0)
[2025-05-09 11:18] LABS: Iron 94.0 ug/dL (50.0-170.0)
[2025-05-09 11:29] LABS: Alanine Aminotransferase 39 U/L (14-59); Albumin Globulin Ratio 1.1; Albumin Level 4.1 g/dL (3.4-5.0); Alkaline Phosphatase 53 U/L (46-116); Anion Gap 13.6; Aspartate Amino Transferase 24 U/L (15-37); Blood Urea Nitrogen 15.0 mg/dL (7.0-18.0); Calcium 9.1 mg/dL (8.5-10.1); Carbon Dioxide 24.9 mmol/L (21.0-32.0); Chloride 108 mmol/L (98-107); Cholesterol 179 mg/dL (<=200); Estimated GFR (African America >60 (>=60 mL/min/1.73m^2); Estimated GFR (Non-African Ame >60 (>=60 mL/min/1.73m^2); Free T3 2.14 pg/mL (2.18-3.98); Globulin 3.8 g/dL; Glucose 121 mg/dL (74-106); HDL Cholesterol 51 mg/dL (40-60); Potassium 4.5 mmol/L (3.5-5.1); Sodium 142 mmol/L (136-145); Thyroid Stimulating Hormone 1.301 uIU/mL (0.358-3.740); Total Protein 7.9 g/dL (6.4-8.2); Triglycerides 177 mg/dL (<=150); VLDL CHOLESTEROL 35.4 mg/dL
== END 2025-05-09 09:55 | disposition home or self-care (01) ==
LOC: LAB 09:55
PROVIDERS: PCP Family Medicine; Visit Provider Family Medicine
DX: Z00.00 Encounter for general adult medical examination without abnormal findings (principal); E78.5 Hyperlipidemia, unspecified; R73.09 Other abnormal glucose; D64.9 Anemia, unspecified; R53.83 Other fatigue
CPT/HCPCS: 36415; 80053; 80061; 83036; 83540; 84436; 84443; 84481; 85025

== ENCOUNTER 2025-06-27 10:06 | Outpatient (OUT) | payer MEDICARE, SELFPAY ==
--- OUTSIDE RECORDS SUMMARY | 2025-06-27 10:08 | XMS_ITS | Encounter Summary ---
Author Organization [facility] Address [address] [facility] [address] [[email or web address]] [place] [address] Care Team Providers Care Gas Main Fitter Name Role Phone Ramon Andrew MD Primary Care Provider [phone] Encounter Details DateTypeDepartmentCare Team (Latest Contact Info)Wodezfpfogd34/21/2025Telephone [facility] [address] [place] [address] [place] [phone] Ilene Alicea LPN Social History Tobacco UseTypesPacks/DayYears UsedDateSmoking Tobacco: Never Assessed CommentsUnknownSex and Gender InformationValueDate RecordedSex Assigned at Btbulr8902/11/2023 7:59 PM EDTLegal GggFyglms50/15/2023 7:03 PM EDTGender Identity Wrrapq2902/11/2023 7:59 PM EDTSexual XpqbebrzcfkXfjqheps07/21/2023 7:59 PM EDT documented as of this encounter Miscellaneous Notes * Telephone Encounter - Ilene Alicea LPN - 06/13/2025 3:43 PM EDT 06/13/25 @ 3:34pm Patient called and LMOM requesting call back. 06/13/25 @3:43pm Called patient and patient voiced that she has not received a call in regards to Prolia injection. Informed patient that is normally scheduled through [facility] Scheduling. Informed patient that orders would be sent to [facility] and they will pre-cert and reach out to her to schedule lab draw and testing. PVU and was transferred to Clerical to setup Annual Appointment. Patient also voiced that Dr. Andrew had ordered Dexa Scan and wanted to know if she needed to have that done since Dr. Philip normally orders that. Informed patient that she is able to obtain it and just let provider know it was performed if she has completed it before annual appointment. PVU--Ilene Guo LPN Printed lab orders and faxed to [facility] with Prolia order and patient demographics. Added patients new insurance of [employer] [place] ID#[id number] to order.--Ilene Guo LPN documented in this encounter Plan of Treatment DateTypeDepartmentCare Team (Latest Contact Info)Hcsxwvuofdn04/03/2025 1:00 PM ESTProcedure Visit [facility] [address] [place] [address] Elizabeth Crockett PA [address] [place] [address] NameTypePriorityAssociated DiagnosesOrder ScheduleCalciumLabRoutine Postmenopausal state Expected: 06/16/2025 (Approximate), Expires: 06/16/2026reatinineLabRoutine Postmenopausal state Expected: 06/16/2025 (Approximate), Expires: 06/16/2026documented as of this encounter Visit Diagnoses Diagnosis Postmenopausal state Asymptomatic postmenopausal status (age-related) (natural) documented in this encounter Care Teams Team MemberRelationshipSpecialtyStart DateEnd Date Ramon Andrew MD PCP - GeneralFamily Medicine02/12/23documented as of this encounter
--- OUTSIDE RECORDS SUMMARY | 2025-06-27 10:08 | XMS_ITS | Encounter Summary ---
Author Organization [facility] Address [address] [place] [address] Care Team Providers Care Personnel Security Specialist Name Role Phone Ramon Andrew MD Primary Care Provider [phone] Encounter Details DateTypeDepartmentCare Team (Latest Contact Info)Yjqzdntruzu86/03/2024Clinisync Result Encounter [facility] Unsolicited Shanda Philip DO [address] Kajal Pineda, [facility] Social History Tobacco UseTypesPacks/DayYears UsedDateSmoking Tobacco: Never Assessed CommentsUnknownSex and Gender InformationValueDate RecordedSex Assigned at Wgdube9602/11/2023 7:59 PM EDTLegal ZvkRbzhdf60/15/2023 7:03 PM EDTGender Identity Pqdzrt4402/11/2023 7:59 PM EDTSexual LdugmoauekgFtjiubzh04/21/2023 7:59 PM EDT documented as of this encounter Plan of Treatment DateTypeDepartmentCare Team (Latest Contact Info)Brxxpyvmuvm77/03/2025 1:00 PM ESTProcedure Visit NOMChris BARLOW [address] [place] [address] Elizabeth Crockett PA [address] [place] [address] documented as of this encounter Procedures Procedure NamePriorityDate/TimeAssociated DiagnosisCommentsXR DEXA AXIAL WAEOZTSZ61/03/2024 4:25 AM EDT documented in this encounter Results * XR DEXA AXIAL SKELETON (04/26/2024 4:25 AM EDT)Anatomical RegionLaterality ModalityOtherSpecimen (Source)Anatomical Location / LateralityCollection Method / VolumeCollection TimeReceived Time04/26/2024 4:25 AM EDT Narrative 04/26/2024 4:28 AM EDT [facility] ?[address] ? [place] [address] ?XRay Report ? Signed ? Patient: MARCIE NAEL J ?MR#: [id number] ?? : 1960 ?Acct:[id number] ?? Age/Sex: 64 / F ?ADM Date: 04/22/24 ?? Loc: RAD ? Attending Dr: Shanda Philip D.O. ? Ordering Physician: Shanda Philip D.O. ?? Date of Service: 04/22/24 ?? Procedure(s): XR DEXA axial skeleton ?? Accession Number(s): [id number] ? cc: Shanda Philip D.O.; Ramon Andrew M.D. ? [facility] ? [address] ? [place] [address] ? Patient Name: ?? MARCIE NEAL ? MRN: [facility]:[id number] ? date: 1960 ?Sex: F ?? Assigned Patient Location: RAD ?? Current Patient Location: ? Accession/Order Number: [id number] ?? Exam Date: 04/22/2024 ??07:55 ?Report Date: 04/26/2024 ??04:25 ? At the request of: ?? SHANDA ??CEDRICK ? Procedure: ??XR DEXA axial skeleton ? EXAMINATION: XR DEXA axial skeleton ? HISTORY: Postmenopausal State Z78.0 ? COMPARISON: DEXA bone densitometry 11/17/2018 ? TECHNIQUE: Dual-energy X-ray absorptiometry (DXA) was performed. ? FINDINGS: ?? SPINE ANALYSIS: ?? Average bone mineral density is 0.853 g/cm2. ?? T-score (standard deviation relative to young adult mean): -2.7 . ?? +3.1% change since prior study. ? HIP ANALYSIS: ?? Lowest bone mineral density is within the right femoral neck, 0.873 g/cm2. ?? T-score (standard deviation relative to young adult mean): -1.2 . ?? -2.0% change since prior study. ? XR/XR DEXA axial skeleton ?? IMPRESSION: ? World Health Organization Classification: Osteoporosis - High Fracture Risk ?? FRAX: Cannot calculate. ? Pharmacologic treatment recommendations ?? * No uniform recommendation applies to all patients. Management plans must be ?? individualized. ?? * Consider initiating pharmacologic treatment in postmenopausal women and men ?? >= 50 years of age who have the following: Primary fracture prevention: ?? * T-score <= - 2.5 at the femoral neck, total hip, lumbar spine, 33% radius (some uncertainty with existing data) by DXA. ?? * Low bone mass (osteopenia: T-score between - 1.0 and - 2.5) at the femoral ?? neck or total hip by DXA with a 10-year hip fracture risk >= 3% or a 10-year major osteoporosis-related fracture risk >= 20% (i.e., clinical vertebral, hip, ?? forearm, or proximal humerus) based on the [place]-adapted FRAXregistered model. ?? Secondary fracture prevention: ?? * Fracture of the hip or vertebra regardless of BMD [4, 5]. ?? * Fracture of proximal humerus, pelvis, or distal forearm in persons with low ?? bone mass (osteopenia: T-score between - 1.0 and - 2.5). The decision to treat ? should be individualized in persons with a fracture of the proximal humerus, ?? pelvis, or distal forearm who do not have osteopenia or low BMD [12, 13]. ?? Zoran MS, Simone SL, Joel KL, Elise EM, Eric KG, AJ, Mustapha ?? ES. ?? The clinician's guide to prevention and treatment of osteoporosis. Osteoporos ?? Int. 2021;33(10):7639-9377. doi: 10.1007/x72130-692-85657-c. Epub 2021 Apr ? 28. Erratum in: Osteoporos Int. 2021Mar 20;: PMID: 43632153; PMCID: ?? [id number]. ? Electronically authenticated by: LASHA ??WES ?? Date: 04/26/2024 ??04:25 ? Dictated By: ?Lasha Hernandez M.D. ? Signed By: ?04/26/24427 ? DD/ 4 ? TD/TT: ? Awning Spreader: Procedure Note Radiology, Radiologist, - 04/26/2024 [place] [address] XRay Report Signed Patient: MARCIE NEAL JMR#: [id number] : 1960cct:[id number] Age/Sex: 64 / FADM Date: 04/22/24 Loc: [facility] Attending Dr: Shanda Philip D.O. Ordering Physician: Shanda Philip D.O. Date of Service: 04/22/24 Procedure(s): XR DEXA axial skeleton Accession Number(s): [id number] cc: Shanda Philip D.O.; Ramon Andrew M.D. The [place] [id number] Patient Name: MARCIE NEAL MRN: [id number] date: 1960 Sex: F Assigned Patient [facility]: [facility] Current Patient Location: Accession/Order Number: [id number] Exam Date: 04/22/2024 07:55 Report Date: 04/26/2024 04:25 At the request of: SHANDA PHILIP Procedure: XR DEXA axial skeleton EXAMINATION: XR DEXA axial skeleton HISTORY: Postmenopausal State Z78.0 COMPARISON: DEXA bone densitometry 11/17/2018 TECHNIQUE: Dual-energy X-ray absorptiometry (DXA) was performed. FINDINGS: SPINE ANALYSIS: Average bone mineral density is 0.853 g/cm2. T-score (standard deviation relative to young adult mean): -2.7 . +3.1% change since prior study. HIP ANALYSIS: Lowest bone mineral density is within the right femoral neck, 0.873 g/cm2. T-score (standard deviation relative to young adult mean): -1.2 . -2.0% change since prior study. XR/XR DEXA axial skeleton IMPRESSION: World Health Organization Classification: Osteoporosis - High FractureRisk FRAX: Cannot calculate. Pharmacologic treatment recommendations * No uniform recommendation applies to all patients. Management plans mustbe individualized. * Consider initiating pharmacologic treatment in postmenopausal women andmen >= 50 years of age who have the following: Primary fracture prevention: * T-score <= - 2.5 at the femoral neck, total hip, lumbar spine, 33%radius (some uncertainty with existing data) by DXA. * Low bone mass (osteopenia: T-score between - 1.0 and - 2.5) at thefemoral neck or total hip by DXA with a 10-year hip fracture risk >= 3% or t13-cguw major osteoporosis-related fracture risk >= 20% (i.e., clinical vertebral, hip, forearm, or proximal humerus) based on the [place]-adapted FRAXregisteredmodel. Secondary fracture prevention: * Fracture of the hip or vertebra regardless of BMD [4, 5]. * Fracture of proximal humerus, pelvis, or distal forearm in persons withlow bone mass (osteopenia: T-score between - 1.0 and - 2.5). The decision totreat should be individualized in persons with a fracture of the proximalhumerus, pelvis, or distal forearm who do not have osteopenia or low BMD [12, 13]. Zoran MS, Simone SL, Joel KL, Elise EM, Eric KG, AJ,Mustapha ES. The clinician's guide to prevention and treatment of osteoporosis.Osteoporos Int. 2021;33(10):2643-2144. doi: 10.1007/n57775-020-89601-s. Ep. Erratum in: Osteoporos Int. 2021Mar 20;: PMID: 47632120; PMCID: [id number]. Electronically authenticated by: LASHA HERNANDEZ Date: 04/26/2024 04:25 Dictated By: Lasha Hernandez M.D. Signed By:04/26/24427 DD/ 4 TD/TT: Awning Spreader: Authorizing ProviderResult TypeResult StatusCorey Cedrick DOCLINISYNC IMAGINGFinal Result documented in this encounter Visit Diagnoses Not on filedocumented in this encounter Care Teams Team MemberRelationshipSpecialtyStart DateEnd Date Ramon Andrew MD PCP - GeneralFamily Medicine02/12/23documented as of this encounter
--- OUTSIDE RECORDS SUMMARY | 2025-06-27 10:08 | XMS_ITS | Clinical Summary ---
Author Organization [facility] Healthcare Address [address] [place] [address] Care Team Providers Care Contact Agent Name Role Phone Ramon Andrew MD Primary Care Provider [phone] Allergies No known active allergies Medications MedicationSigDispense QuantityRefillsLast FilledStart DateEnd DateStatus Pediatric Multivitamins-Fl (MultiVitamin + Fluoride) 0.25 MG chewable tablet MultivitaminActive atorvastatin (Lipitor) 20 MG tablet Indications:Hyperlipidemia, unspecified hyperlipidemia typeTAKE 1 TABLET BY MOUTH EVERY DAY IN THE EVENING 90 tablet 5Active citalopram (CeleXA) 20 MG tablet Indications:Anxiety, generalizedTake 1 tablet (20 mg) by mouth in the morning. 90 tablet 515Active Encounters DateTypeDepartmentCare GggdSoejpgiyclm44/21/2025Telephone [facility] [address] [place] [address] [place] [address] Ilene Alicea LPN from Last 3 Months Family History Medical HistoryRelationNameCommentsNo Known ProblemsDaughterColon cancerFatherNo Known ProblemsMotherNo Known ProblemsSonRelationNameStatusCommentsDaughterAlive FatherDeceasedMotherDeceasedSonAlive Social History Tobacco UseTypesPacks/DayYears UsedDateSmoking Tobacco: Never Assessed CommentsUnknownSex and Gender InformationValueDate RecordedSex Assigned at Qlmclt42/ 7:59 PM EDTLegal UzfGvpsgn94/15/2023 7:03 PM EDTGender Identity Nrtmrn5802/11/2023 7:59 PM EDTSexual UvvxqmwlauiPvhftien34/21/2023 7:59 PM EDT Last Filed Vital Signs Vital SignReadingTime TakenCommentsBlood Gjflmsvq930/64004/14/2024 10:04 AM EDT Pulse--Temperature--Respiratory Rate--Oxygen Saturation--Inhaled Oxygen Concentration--Cgpulg68 kg (172 lb)04/14/2024 10:04 AM JMWAzqofl603.6 cm (5' 6 ) 04/14/2024 10:04 AM EDTBody Mass Index27.76004/14/2024 10:04 AM EDT Plan of Treatment DateTypeDepartmentCare Team (Latest Contact Info)Flhopiufrzk41/03/2025 1:00 PM ESTProcedure Visit [facility] OBBRINA [address] [place] [address] Elizabeth Crockett PA [address] [place], [facility] Insurance Care Teams Team MemberRelationshipSpecialtyStart DateEnd Ramon Andrew MD PCP - GeneralFamily Medicine02/12/23
--- OUTSIDE RECORDS SUMMARY | 2025-06-27 10:11 | XMS_ITS | CCD ---
Author Organization [facility] Care Team Providers Care Financial Planner Name Role Phone MACI ., DR MENDOZA Primary Care Unavailable MACI Baptiste, DR MENDOZA Consulting Unavailable MACI Baptiste, DR MENDOZA Attending Unavailable MACI ., DR MENDOZA Admitting Unavailable WES, DR LASHA Stevens Consulting Unavailable SHANDA PHILIP Attending Unavailable Kelly Andrew MD Primary Care Provider [phone] Kelly Andrew MD Primary Care Provider [phone] Kelly Andrew MD Attending Provider [phone] Kelly Andrew Attending Unavailable Kelly Andrew Primary Care Unavailable Kelly Andrew Admitting Unavailable Kelly Andrew Primary Care Physician Dakota MARIE Attending Unavailable Kelly Andrew MD Primary Care Provider Allergies Allergy ClassificationReported Allergen(s)Allergy TypeDate of OnsetReaction(s) Facility (1 source)No Known Medication Allergies; Translations: [No Known Medication Allergies]Propensity to adverse reactions (disorder)[facility] Repository Medications Current Medications MedicationDrug Class(es)DatesSig (Normalized)Sig (Original)alendronic acid 70 mg oral tablet (1 source)BisphosphonateStart: 69-70-3730zzlj 1 tablet by mouth every week Alendronate 70 mg Tablet Active 70 MG PO every week March 09, 2018 12:00am Takes on Thursday morningALPRAZolam 0.25 mg oral tablet (1 source)BenzodiazepineStart: 76-75-9005Ugvdjqbtvl 0.25 mg Tablet Active 0.25 MG PO 2-3 TIMES PER DAY as needed for Anxiety March 09, 201812:00amascorbic acid 1000 mg oral tablet (1 source)Vitamin CStart: 01-75-5081vyow 1 g by mouth once dailyAscorbic Acid (Vitamin C) (Vitamin C) 1,000 mg Tablet Active 1 GM PO Daily March 09, 2018 12:00amascorbic acid 60 mg / cholecalciferol 0.01 mg / folic acid 0.3 mg / niacin 13.5 mg / riboflavin 1.2mg / sodium fluoride 0.55 mg / thiamine 1.05 mg / vitamin a 0.75 mg / vitamin b12 0.0045 mg / vitamin b6 1.05 mg / vitamin e 6.75 mg chewable tablet (7 sources)Nicotinic Acid, Vitamin A, Vitamin B12, Vitamin D, Vitamin CPediatric Multivitamins-Fl (MultiVitamin + Fluoride) 0.25 MG chewable tablet Multivitamin Activeatorvastatin 20 mg oral tablet (10 sources)HMG-CoA Reductase InhibitorStart: 13-61-5336epuo 1 tablet by mouth once dailyatorvastatin 20 mg Tab 20 mg = 1 tab(s), Oral, Daily, Refills(s) 0 Start Date: 05/17/25 Status: Ordered Repeat number: 1Start: 51-24-5794xwpx 1 tablet by mouth once daily in the eveningatorvastatin (Lipitor) 20 MG tablet Indications: Hyperlipidemia, unspecified hyperlipidemia type (CMS/HCC) TAKE 1 TABLET BY MOUTH EVERY DAY IN THE EVENING 90 tablet 2 10/14/2024 ActiveStart: 40-98-8772vkzi 1 tablet by mouth once daily in the eveningatorvastatin (Lipitor) 20 MG tablet Indications: Hyperlipidemia, unspecified hyperlipidemia type (CM S/HCC) TAKE 1 TABLET BY MOUTH EVERY DAY IN THE EVENING 90 tablet 02/29/2024 ActiveStart: 10-18-2023 End: 86-79-2693ttks 1 tablet by mouth once daily in the eveningAtorvastatin 20 mg tablet Active 0 .ROUTE .COMPLEX 90 January 17, 2024 3:49pm TAKE ONE TABLET BY MOUTH EVERY EVENINGStart: 03-09-2018 End: 98-13-0506jtnm 1 tablet by mouth at bedtimeAtorvastatin 20 mg tablet Discontinued 20 MG PO Bedtime March 09, 2018 12:00am October 1847:29pm biotin 10 mg oral capsule (1 source)Start: 86-11-0687awpx 1 capsule by mouth once dailyBiotin 10,000 mcg Capsule Active 82021 MCG PO Daily March 09, 2018 12:00amcalcium carbonate 1500 mg / cholecalciferol 0.01 mg oral tablet (1 source)Vitamin DStart: 83-93-3726yfzd 1 tablet by mouth once dailyCalcium Carbonate-Vitamin D3 (Calcium 600 + D(3)) 600 mg(1,500mg) -400 unit Tablet Active 1 TAB PO Daily March 09, 2018 12:00amCalcium Citrate / Vitamin D (1 source)Start: 09-69-9651fdhutbh-vitamin D Refill(s) 0 Start Date: 06/13/25 Status: Ordered Repeat number: 1cholecalciferol 0.05 mg oral capsule (1 source)Vitamin DStart: 44-91-3973swww 1 capsule by mouth once daily Cholecalciferol (Vitamin D3) (Vitamin D3) 2,000 unit Capsule Active 2000 UNIT PO Daily March 09, 2018 12:00amcitalopram 20 mg oral tablet (9 sources)Serotonin Reuptake InhibitorStart: 03-09-2018 End: 10-90-6664ubtx 1 tablet by mouth once dailycitalopram 20 mg Tab 20 mg = 1 tab(s), Oral, Daily, Refills(s) 0 Start Date: 05/17/25 Status: Ordered Repeat number: 1Start: 87-58-7105zijt 1 tablet by mouth once dailyCitalopram 10 mg tablet Active 10 MG PO Daily March 09, 2018 12:00am1 ml denosumab 60 mg/ml prefilled syringe (1 source)RANK Ligand InhibitorStart: 01-09-7065Ajqyyv 60 mg/mL subcutaneous solution 60 mg, SubCutaneous, q6mo, Refills(s) 0 Start Date: 05/17/25 Status: Ordered Repeat number: 1melatonin 5 mg oral tablet (1 source)Start: 10-33-3135wzyt 1 tablet by mouth once daily at bedtime as neededmelatonin 5 mg oral tablet 5 mg = 1 tab(s), Oral, Once a day (at bedtime), PRN for insomnia, Refills(s) 0 Start Date: 05/17/25 Status: Ordered Repeat number: 1Multi Vitamins oral tablet (1 source)Start: 12-85-2394jxvc 1 tablet by mouth once dailyMulti Vitamins oral tablet 1 tab(s), Oral, Daily, Refill(s) 0 Start Date: 05/17/25 Status: Ordered Re peat number: 1Multivitamin (Multiple Vitamins) Tablet (1 source)Start: 92-20-3704fijx 1 tablet by mouth once daily in the morning Multivitamin (Multiple Vitamins) Tablet Active 1 TAB PO Every morning March 09, 2018 12:00am Completed/Discontinued Medications MedicationDrug Class(es)DatesSig (Normalized)Sig (Original)[place]-3 Fatty Acids- Fish Oil (1 source)Start: 03-09-2018 End: 69-91-9590nfqb 1 capsule by mouth once dailyOmega-3 Fatty Acids-Fish Oil (Fish Oil) 300-1,000 mg Capsule Discontinued 1 CAP PO Daily February 12:00am March 12, 2018 9:28am Problems Active Problems Problem ClassificationProblemDateDocumented DateEpisodic/ChronicAnxiety disorders (1 source)Ommwwdf86-13-5001MqpolabEqlsdwylo of lipid metabolism (1 source)Hvnbfbaztnxpscbefpga16-56-6413UeadgpwQjae disorders (1 source)Major depressive uutdvrtt90-54-5647UamuexwSbisvfdnevhk (1 source)Mxfmfbvyztbj04-13-3962FrerlrsYrump nutritional; endocrine; and metabolic disorders (1 source)Body mass index 30+ - iiwjsve94-91-0901QgopyayRwsio nutritional; endocrine; and metabolic disorders (1 source)Obesity caused by energy iznwfusdp29-15-7520UbuajcnBazzq screening for suspected conditions (not mental disorders or infectious disease) (7 sources)Encounter for screening mammogram for malignant neoplasm of breast; Translations: [Patient encounter status]Onset: 32-46-4848JiqedbicRwecdwuw codes; unclassified (1 source)Sleep akemh40-30-1862TzfxgwnKlfgcgih codes; unclassified (1 source)Family history of malignant neoplasm of digestive organs; Translations: [FAM HX MALIG NEOPLASM DIGESTIV ORGN]Onset: 25-36-1926Elxphrmk Residual codes; unclassified (1 source)Family history of malignant neoplasm of digestive organ; Translations: [Family history of malignantneoplasm of digestive organs]Onset: 06-13-2025 EpisodicResidual codes; unclassified (1 source)Family history of cancer of zpyed89-15-5886Jhxixdcr Past or Other Problems Problem ClassificationProblemDateDocumented DateEpisodic/ChronicResidual codes; unclassified (2 sources)Postmenopausal state; Translations: [Asymptomatic menopausal state] 37-96-0628Mrrrhmbe Results Test NameValueInterpretationReference RangeFacilityAmbulatory Visit Summaryon 54-33-1591Uglytuztlu Visit SummaryAmbulatory Visit Summary MARCIE NEAL :1960 Visit Date:06/13/2025 Ambulatory Visit Instructions Your Diagnosis Family history of colon cancer in father Your Care Team Attending Physician - CYNTHIA ORELLANA, Dakota Stevens Primary Care Physician - Kelly Andrew MD This Is Your Medications List Contact prescribing physician if questions or concerns atorvastatin (atorvastatin 20 mg Tab) calcium-vitamin D citalopram (citalopram 20 mg Tab) denosumab (Prolia 60 mg/mL subcutaneous solution) melatonin (melatonin 5 mg oral tablet) multivitamin (Multi Vitamins oral tablet) Procedures Performed Colonoscopy (11/10/2018), Appendectomy, Colonoscopy, History of nasal sinus surgery, DORIS BSO - Total abdominal hysterectomy and bilateral salpingo-oophorectomy. Discharge Vitals Heart Rate (Peripheral) 70 Respiratory Rate 16 Blood Pressure 116/60 Height 167.6 cm Height 66 in Weight 92.9 kg Weight 204.809 lb BMI 33.07 Medications What How Much When Instructions Unchanged atorvastatin (atorvastatin 20 mg Tab) 1 Tablets By Mouth Every day Contact prescribing physician if questions or concerns Unchanged calcium-vitamin D Contact prescribing physician if questions or concerns Unchanged citalopram (citalopram 20 mg Tab) 1 Tablets By Mouth Every day Contact prescribing physician if questions or concerns Unchanged denosumab (Prolia 60 mg/ mL subcutaneous solution) 60 Milligram Subcutaneous Every 6 months Contact prescribing physician if questions or concerns Unchanged melatonin (melatonin 5 mg oral tablet) 1 Tablets By Mouth Once a day (at bedtime) as needed for for insomnia Contact prescribing physician if questions or concerns Unchanged multivitamin (Multi Vitamins oral tablet) 1 Tablets By Mouth Every day Contact prescribing physician if questions or concerns Allergies No Known Allergies No Known Medication Allergies Problems Ongoing - Any problem that you are currently receiving treatment for. Anxiety BMI 33.0-33.9,adult Family history of colon cancer in father Hypercholesterolemia Major depressive disorder Obesity due to excess calories Osteoporosis Sleep apnea Patient Survey You may receive a survey via text or e-mail asking about your office visit. Please share your experience with us by completing your survey. We appreciate your feedback and thank you for choosing us for your care. Patient Portal You may access all of your results and other medical record information on our secure patient portal. If you are not signed up for this yet, please contact [employer] at [phone] to get signed up today. Language Information Language assistance services are available as needed. [facility] MemorialMM special view LT w/CADon 18-72-1514TB special view LT w/CADCOMMUNITY MEMOR[facility] [address] [place] [address] Mammography Report Signed Patient: Marcie Neal MR#: [id number] : 1960 Acct:[id number] Age/Sex: 64 / F Adm Date: 01/24/25 Loc: [place] Room: Type: [facility] Attending Dr: Kelly Andrew MD Ordering Provider: Kelly Andrew MD Date of Service: 01/24/25 Procedure(s): MM special view LT w/CAD Accession Number(s): ([id number]) MM/MM special view LT w/CAD: R92.8 Copies to: Kelly Andrew MD DIAGNOSTIC LEFT MAMMOGRAM - FULL FIELD [...] Garcia M.D. 01/24/2025 2:21 PM Dictation Location: [facility] Dictated By: Blas Garcia II, MD 01/24/25 1357 Signed By: 01/24/[address] [place] [address] Physician GroupMammography reportOrdered By: Blas Garcia on 91-37-5244Byraxiehgw imaging studyNATIONWIDE [facility]ILDR[facility] [address] [place] [address] Mammography Report Signed Patient: Marcie Neal MR#: [id number] : 1960 Acct:[id number] Age/Sex: 64 / F Adm Date: 5 Loc: [place] Room: Type: [facility] Attending Dr: Kelly Andrew MD Ordering Provider: Kelly Andrew MD Date of Service: 01/24/25 Procedure(s): MM special view LT w/CAD Accession Number(s): ([id number]) MM/MM special view LT w/CAD: R92.8 Copies to: Kelly Andrew MD~ DIAGNOSTIC LEFT MAMMOGRAM - FULL FIELD [...] Garcia M.D. 01/24/2025 2:21 PM Dictation Location: [facility] Dictated By: Blas Garcia II, MD 01/24/25 1357 Signed By: 01/24/25 1420 [facility] Work Phone: CCB CALCIUMon 62-37-5301Byesmms [Mass/Vol]8.7 mg/dL8.5 - 10.1 mg/dLNOOR HealthcareNo Panel Informationon 42-45-1636TOWLCNFFWKACL HealthcareTB CREATININEon 12-71-8268Kuixjzjsqj [Mass/Vol]0.92 mg/dL0.55 - 1.02 mg/dLNOOR HealthcareGFR/1.73 sq M.predicted CKD-EPI (S/P/Bld) [Vol rate/Area]>60 >=60 mL/min/1.73m 2[facility] HealthcareTBH EGFR-NON AF [place]>60>=60 mL/min/1.73m 2 NOM[facility] HealthcareCCF CALCIUMon 52-64-4632Qpgubdb [Mass/Vol]9.2 mg/dL8.5 - 10.1 mg/dLNOOR HealthcareNo Panel Informationon 25-52-4133IFHYDSABOQMVE HealthcareTB CREATININEon 10-73-5562Dfnnbympaw [Mass/Vol]1.01 mg/dL0.55 - 1.02 mg/dLNOOR HealthcareGFR/1.73 sq M.predicted CKD-EPI (S/P/Bld) [Vol rate/Area]>60>=60 mL/min/1.73m 2[facility] HealthcareInterpretation and review of laboratory results AbnormalNOChildren's Mercy NorthlandTB EGFR-NON AF XFSEOOAG54Vjm>=60 mL/min/1.73m 2NOMS HealthcareXR DEXA AXIAL SKELETONon 32-08-1788[address] [address] XRay Report Signed Patient: MARCIE NEAL MR#: [id number] : 1960 Acct:[id number] Age/Sex: 64 / F ADM Date: 04/22/24 Loc: RAD Attending Dr: Shanda Philip D.O. Ordering Physician: Shanda Philip D.O. Date of Service: 04/22/24 Procedure(s): XR DEXA axial skeleton Accession Number(s): [id number] cc: Shanda Philip D.O.; Kelly Andrew M.D. [place] [address] Patient Name: MARCIE NEAL MRN: [facility]:[id number] date: 1960 Sex: F Assigned Patient Location: [facility] Current Patient Location: Accession/Order Number: [id number] Exam Date: 04/22/2024 07:55 Report Date: 04/26/2024 [...] Organization Classification: Osteoporosis - High Fracture Risk FRAX: Cannot calculate. Pharmacologic treatment recommendations * No uniform recommendation applies to all patients. Management plans must be individualized. * Consider initiating pharmacologic treatment in postmenopausal women and men >= 50 years of age who have the following: Primary fracture prevention: * T-score <= - 2.5 at the femoral neck, total hip, lumbar spine, 33% radius (some uncertainty with existing data) by DXA. * Low bone mass (osteopenia: T-score between - 1.0 and - 2.5) at the femoral neck or total hip by DXA with a 10-year hip fracture risk >= 3% or a 10-year major osteoporosis-related fracture risk >= 20% (i.e., clinical vertebral, hip, forearm, or proximal humerus) based on the [place]-adapted FRAXregistered model. Secondary fracture prevention: * Fracture of the hip or vertebra regardless of BMD [4, 5]. * Fracture of proximal humerus, pelvis, or distal forearm in persons with low bone mass (osteopenia: T-score between - 1.0 and - 2.5). The decision to treat should be individualized in persons with a fracture of the proximal humerus, pelvis, or distal forearm who do not have osteopenia or low BMD [12, 13]. Zoran MS, Simone SL, Joel KL, Elise EM, Eric KG, AJ, Mustapha ES. The clinician's guide to prevention and treatment of osteoporosis. Osteoporos Int. 2021;3310):1628-3997. doi: 10.1007/r75260-513-19001-a. Epub 2021Dec 19. Erratum in: Osteoporos Int. 2021Mar 20;: PMID: 23163957; PMCID: ZRN4282863. Electronically authenticated by: LASHA HERNANDEZ Date: 04/26/2024 04:25 Dictated By: Lasha Hernandez M.D. Signed By: 04/26/24427 DD/ 4 TD/TT: Engine Repairer:TBHRadiology, Radiologist, - 04/26/2024 [place] [address] XRay Report Signed Patient: MARCIE NEAL MR#: [id number] : 1960 Acct:[id number] Age/Sex: 64 / F ADM Date: 04/22/24 Loc: RAD Attending Dr: Shanda Philip D.O. Ordering Physician: Shanda Philip D.O. Date of Service: 04/22/24 Procedure(s): XR DEXA axial skeleton Accession Number(s): [id number] cc: Shanda Philip D.O.; Kelly Andrew M.D. [facility] [place] [id number] Patient Name: MARCIE NEAL MRN: [facility]:[id number] date: 1960 Sex: F Assigned Patient Location: [facility] Current Patient Location: Accession/Order Number: [id number] Exam Date: 04/22/2024 07:55 Report Date: 04/26/2024 [...] Organization Classification: Osteoporosis - High Fracture Risk FRAX: Cannot calculate. Pharmacologic treatment recommendations * No uniform recommendation applies to all patients. Management plans must be individualized. * Consider initiating pharmacologic treatment in postmenopausal women and men >= 50 years of age who have the following: Primary fracture prevention: * T-score <= - 2.5 at the femoral neck, total hip, lumbar spine, 33% radius (some uncertainty with existing data) by DXA. * Low bone mass (osteopenia: T-score between - 1.0 and - 2.5) at the femoral neck or total hip by DXA with a 10-year hip fracture risk >= 3% or a 10-year major osteoporosis-related fracture risk >= 20% (i.e., clinical vertebral, hip, forearm, or proximal humerus) based on the US-adapted FRAXregistered model. Secondary fracture prevention: * Fracture of the hip or vertebra regardless of BMD [4, 5]. * Fracture of proximal humerus, pelvis, or distal forearm in persons with low bone mass (osteopenia: T-score between - 1.0 and - 2.5). The decision to treat should be individualized in persons with a fracture of the proximal humerus, pelvis, or distal forearm who do not have osteopenia or low BMD [12, 13]. Zoran MS, Simone SL, Joel KL, Elise EM, Eric KG, AJ, Mustapha ES. The clinician's guide to prevention and treatment of osteoporosis. Osteoporos Int. 2021;33(10):6848-9661. doi: 10.1007/v56600-101-55057-a. Epub 2021Dec 19. Erratum in: Osteoporos Int. 2021Mar 20;: PMID: 28988364; PMCID: [id number]. Electronically authenticated by: LASHA HERNANDEZ Date: 04/26/2024 04:25 Dictated By: Lasha Hernandez M.D. Signed By: 04/26/24427 DD/ 4 TD/TT: Engine Repairer: [facility] HealthcareRadiology Study observation (narrative)[facility] NetworkXR DEXA AXIAL SKELETONOrdered By: Radiologist Radiology on 77-20-3624XV[facility] Work Phone: IGP,APTIMA HPV,AGE GDLNon 72-02-7796LPO GDLN ACOG TESTINGNote.[facility] HealthcareComment on above:TESTS RESULT FLAG UNITS REF RANGE LAB Clinician Provided Cytology Information Source.............Vagina No. of containers..01 ThinPrep Vial Age Algo ACOG Nathalie... 30- FLAG LEGEND: L-Low Normal,H-High Normal,LL-Alert Low,HH-Alert High <-Panic Low,>-Panic High,A-Abnormal,AA-Critical Abnormal Performed at: 01 =[address] [address] Fela Avendano MD, HPV APTIMANegativeNegativeNOMS HealthcareComment on above:This nucleic acid amplification test detects fourteen high- risk HPV types (16,18,31,33,35,39,45,51,52,56,58,59,66,68) without differentiation. Performed at: =[address] [id number] End Finder Forming Department: Fela Avendano MD, Phone: [phone] Performed at: [address] [id number] End Finder Forming Department: Fela Avendano MD, Phone: [phone] IGP, APTIMA HPV, RFX 16/18,45Note.NOMS HealthcareComment on above:TESTS RESULT FLAG UNITS REF RANGE LAB DIAGNOSIS: 02 NEGATIVE FOR INTRAEPITHELIAL LESION OR MALIGNANCY. Specimen adequacy: 02 Satisfactory for evaluation. Performed by: Teodoro Leach Mounter Smoking Pipe ([facility]) . 02 Note: Note 02 The Pap [...] High,A-Abnormal,AA-Critical Abnormal Performed at: 02 [address] [facility] [address] [address] Fela Avendano MD, SPATULA-ALONE [facility] CenterMG MAMM SCREEN 3D KAE CADon 74-39-4116WS MAMM SCREEN 3D KAE CADPatient: MARCIE NEAL Exam Date: 12/26/2022 : 1960 Gender:F Ordering : DR KELLY ANDREW . Admission #: [id number] Family : Order #: [id number] CLICK HERE TO VIEW EXAM RADIOLOGY REPORT [...] colon cancer at age 47. LOCATION: [facility] BREAST COMPOSITION: Scattered areas fibroglandular density. [...] by: Lasha Hernandez M.D. on 12/29/2022 at 11:50[facility] Vital Signs Date TimeVital SignValuePerforming AnospmyzqZyliwmgh00-90-1875 10:04-0400Body xqodto469.6 cmCorey Cedrick DO Work Phone: NOChildren's Mercy NorthlandDjxurlrfal32-03-5972 10:04-0400Body mass index (BMI) [Ratio]27.76 kg/r0Sprwz Cedrick DO Work Phone: [facility] NetworkLhlxjbttdv83-88-0761 10:040400Body .02 kgCorey Cedrick DO Work Phone: [facility] NetworkHxxcitqaxy83-14-8547 10:04-0400Diastolic blood mm[Hg]Shanda Cedrick DO Work Phone: [facility] NetworkRmpykvfcvk50-78-4197 10:040400Systolic blood xdhmddyh838 mm[Hg]Shanda Cedrick DO Work Phone: [facility] Encounters Encounter DateEncounter TypeCare ProviderFacilityStart: 06-13-2025 End: 90-53-3682dcflomsrodXflluyi R NILLFacility:[facility]tart: 06-13-2025 End: 93-29-6963Gupuvot encounter procedureMichael R NILL 808-8620Vhgluk-[facility]xydNew[facility] Start: 11-04-7984ptmzfmvpucPxyhlnd NILLFacility:[facility]Start: 01-24-2025 End: 88-33-7842Njosgpx encounter procedureKelly Andrew MD Work Phone: [facility] Work Phone: Start: 01-24-2025 End: 96-95-9557byuqrhblnrJonnepq M Hoy MD Work Phone: [facility] Work Phone: Start: 12-05-2024 End: 03-50-3232Ujavjuuco Result EncounterCorey Cedrick DO Work Phone: noms External Department UnsolicitedStart: 12-05-2024 End: 98-75-4319Kvozvguaf Result EncounterCorey Cedrick DO Work Phone: noms External Department UnsolicitedStart: 06-01-2024 End: 32-57-0252Utgmhpcdi Result EncounterCorey Cedrick DO Work Phone: NOGX External Department UnsolicitedStart: 06-01-2024 End: 92-22-9539Pggyxijmf Result EncounterCorey Cedrick DO Work Phone: noms External Department UnsolicitedStart: 04-26-2024 End: 14-54-1807Vzebottzt Result EncounterCorey Cedrick DO Work Phone: noms External Department UnsolicitedStart: 04-26-2024 End: 03-16-2916Ucqxbnfbe Result EncounterCorey Cedrick DO Work Phone: noms External Department UnsolicitedStart: 04-14-2024 End: 42-97-1115Msjnfo flowsheetCorey Cedrick DO Work Phone: [facility]CP OBStart: 04-14-2024 End: 09-17-1884Nocvfn flowsheetCorey Cedrick DO Work Phone: NOER BCP OBStart: 04-14-2024 End: 05-70-4885Vcmbuajeh Result EncounterCorey Cedrick DO Work Phone: NOUN External Department UnsolicitedStart: 04-14-2024 End: 82-43-0129Okyvzjo encounter procedureCorey Cedrick DO Work Phone: NOJQ HealthcareStart: 04-14-2024 End: 74-27-7264Llwvwdhf preventive med est patient 65yrs& olderCorey Cedrick DO Work Phone: [facility] OBComment on above:Well woman exam with routine gynecological exam; Postmenopausal state; Breast cancer screening by mammogramStart: 04-14-2024 End: 80-02-6470ifjhtfjsyeKHSHK HARIKAONot AvailableStart: 12-26-2022 End: 44-19-9791zhlbmtubybDB KELLY MACI .Facility: Procedures DateProcedureProcedure DetailPerforming ClinicianStart: 16-36-3015Qmaczuyxini of left breastDoaneta Andrew MD Work Phone: Start: 67-09-8970GJF CALCIUMCorey Cedrick DO Work Phone: Start: 94-03-1965COE CREATININECorey Cedrick DO Work Phone: Start: 29-83-2135NSE CALCIUMCorey Cedrick DO Work Phone: Start: 24-86-4046ZRK CREATININECorey Cedrick DO Work Phone: Start: 88-33-7743ZR DEXA AXIAL SKELETONCorey Cedrick DO Work Phone: Start: 77-97-6799AVE,APTIMA HPV,AGE GDLNCorey Cedrick DO Work Phone: Start: 20-41-7874SmvqqxdyutxBdoopls NILL AppendectomyMichael NILL ColonoscopyMichael NILL History of nasal sinus surgeryMichael NILL Total abdominal hysterectomy with bilateral salpingo-oophorectomyMichael NILL Plan of Treatment DateCare ActivityDetailAuthorStart: 07-26-2025 End: 25-09-3182Tmwlktu encounter crpiqtckj33/03/2025 1:00 PM EST Procedure Visit [facility] [address] [facility] [place] [id number] Elizabeth Crockett PA [address] [place] [address] NOMChris Pineda OBGYNStart: 04-14-2024 End: 17-41-5679AXK Skeletal system Views for bone densityDEXA bone density Imaging Routine Postmenopausal state Expected: 04/14/2024 (Approximate), Expires:04/14/2025[facility] Work Phone: comment on above:Expected: 04/14/2024 (Approximate), Expires: 04/14/2025Start: 04-14-2024 End: 77-93-5639Bqacfne encounter lbtastwoj20/22/2024 10:00 AM EDT Office Visit [facility] [address] [place] [phone] Shanda Philip DO [address] [place] [address] ArrivedKECK HOSPITAL OF USC OBComment on above:ArrivedTHIN PREP TIS PAP AND HR HPV DNATHIN PREP TIS PAP AND HR HPV DNA Pathology and Cytology Routine Well woman exam with routine gynecological exam Ordered: 04/14/2024NOChildren's Mercy NorthlandComment on above:Ordered: 04/14/2024 Immunizations Immunization DateImmunizationNotesCare YnofdeaeUzmtcimj52-11-2311JZPU-RyE-3 (COVID-19) mRNA BNT-162b2 vaxMichael NILL [phone]-AajuuNewark Hospital [facility] [place] 09-25-8180IIFW-CoV-2 (COVID-19) mRNA BNT-162b2 vaxMichael NILL [phone]-FcfppNewark Hospital [facility] [place] 75-07-8540upkysyhna virus vaccine, unspecified formulationKelly Andrew MD Work Phone: [facility] Payers DatePayer CategoryPayerPolicy [id number] [id number] (Managed Care)[facility] [id number] [facility] [id number] 2024-Present [address] [place] [address] [id number] [id number] 2..[id number] 2..[id number] 2..[id number] [id number] Social History DateTypeDetailFacilityTobacco smoking status NHISTobacco smoking consumption unknownDAVIS [facility] HealthcareStart: 67-64-9450Hum assigned at birthFeGeisinger-Shamokin Area Community HospitalStart: 91-22-2140Ordeip identityIdentifies as female gender (finding) [facility] HealthcareStart: 04-70-3588Czgquo orientationHeterosexual (finding)[facility]: 04-22[facility]2017 End: 37-34-4765Yqfgftv smoking status NHISNever smoked tobacco (finding) [facility] End: 94-26-6229ShaTkmhyd (finding)[facility]: 38-58-6774Bztpvfy smoking statusNeverCoshocton Regional Medical Center Surgery BellueSexual OrientationCoshocton Regional Medical Center [facility] [place] sex Assigned At [facility] Clinical Note 06-13-2025 Note Date & [id number] NoteGeneral Surgery Office/Clinic Note Chief Complaint consultation for colonoscopy HPI Staff 65 year old female presents on consultation from Dr. Andrew for surveillance colonoscopy. Last colonoscopy completed 10/2018- normal. Father with history of colon cancer- age 45. Denies abdominal or rectal pain. No rectal bleeding or change in bowel habits. Denies nausea, vomiting or weight loss. History of Present Illness 65 yo female with h/o hypercholesterolemia, anxiety/depression, osteoporosis, sleep apnea, referredfor surveillance colonoscopy; family history of colon cancer in patient's father, dx at age 45; last colonoscopy 2018, wnl; denies change in bms or blood in stools, no abd complaints; abd operations significant for appendectomy and DORIS with BSO; no asa or NSAID use; no tobacco use; no fmhx of IBD. Review of Systems PHQ Score Initial Depression Screen Score: 0 SCORE ROS - Provider Constitutional: no fever, no sweats, no weight loss. Eyes: yes glasses, no blurred vision, no visual loss. ENMT: no dentures, no hoarseness, no swallowing difficulties, no hearing loss, no ear infection(s),no nose bleeds. Cardiovascular: normal blood pressure, no chest pain, regular heartbeat, no heart murmur. Respiratory: no shortness of breath, no cough, no asthma, no wheezing. Gastrointestinal: no nausea, no vomiting, no diarrhea, no constipation, no blood in stool, no change in bowel habits, no abdominal pain, no hepatitis. Genitourinary: no kidney stones, no urine infection, no dysuria. Musculoskeletal: no pain, no weakness. Skin: no changing moles, no rash, no skin lumps. Neurologic: no seizures, no epilepsy, no headache. Psychiatric: no emotional or psychiatric problem. Heme/Lymph: no bleeding problems, no anemia, no blood clots, no transfusions. Allergy/Immunologic: no swollen lymph nodes/glands, no IV drug abuse. Other: Additional ROS info: Except as noted in the above Review of Systems and in the History of Present Illness, all other systems have been reviewed and are negative or noncontributory. Physical Exam Vitals & Measurements HR: 70(Peripheral) RR: 16 BP: 116/60 HT: 167.6 cm HT: 66 in WT: 92.9 kg WT: 204.809 lb BMI: 33.07 HEENT: normal conjunctiva, sclera clear, no scleral icterus, EOM intact, PERRLA, oral mucosa moist without lesions. Neck: trachea midline, no mass, symmetric, no thyromegaly or nodules, no adenopathy Respiratory: lungs CTA, respirations non labored. Cardiovascular: regular rate and rhythm, no murmur, no pedal edema or varicosities. Gastrointestinal: obese,soft, non distended, no tenderness, no masses, no palpable hernias, diastasis recti no, no hepatosplenomegaly; normal bs Musculoskeletal: normal gait, digits and nails without infection, nodes, cyanosis, clubbing. Skin: no rashes, no lesions, no ulcers, no subcutaneous nodules, induration. Psychiatric/Neuro: oriented to time, place, person, judgement normal, affect appropriate for age, insight intact, no focal deficits. Tests: , review of old records completed , Discussed surgical options, risks, and possible complications with patient. Assessment/Plan 1. Family history of colon cancer in father (Z80.0: Family history of malignant neoplasm of digestive organs) plan surveillance colonoscopy under anesthesia, informed consent obtained. Follow-up No qualifying data available Problem List/Past Medical History Ongoing Anxiety BMI 33.0-33.9,adult Family history of colon cancer in father Hypercholesterolemia Major depressive disorder Obesity due to excess calories Osteoporosis Sleep apnea Historical No qualifying data Procedure/Surgical History Colonoscopy (11/10/2018), Appendectomy, Colonoscopy, History of nasal sinus surgery, DORIS BSO - Total abdominal hysterectomy and bilateral salpingo-oophorectomy. Medications atorvastatin 20 mg Tab, 20 mg= 1 tab(s), Oral, Daily calcium-vitamin D citalopram 20 mg Tab, 20 mg= 1 tab(s), Oral, Daily melatonin 5 mg oral tablet, 5 mg= 1 tab(s), Oral, Once a day (at bedtime), PRN Multi Vitamins oral tablet, 1 tab(s), Oral, Daily Prolia 60 mg/mL subcutaneous solution, 60 mg, SubCutaneous, q6mo Allergies No Known Allergies No Known Medication Allergies Social History Alcohol - Denies Alcohol Use, 06/13/2025 Substance Abuse - Denies Substance Abuse, 06/13/2025 Tobacco Never (less than 100 in lifetime) Tobacco Use:. Never Smokeless Tobacco Use:., 06/13/2025 Family History Heart disease: Mother. Primary malignant neoplasm of colon: Father. Immunizations Vaccine Date Status SARS-CoV-2 (COVID-19) mRNA BNT-162b2 vax 11/30/2020 Recorded SARS-CoV-2 (COVID-19) mRNA BNT-162b2 vax 11/09/2020 RecordedWexner Medical CenterComment on above:Result Comment: Electronically Signed By: CYNTHIA ORELLANA, Dakota Mejia\Date and Time Signed: 06/13/25 13:32 EDT History of Present illness Narrative 04-14-2024 Note Date & [id number] History of Present illness Narrative* Ilene Alicea LPN - 04/14/2024 10:00 AM EDT Reason for Appointment: Patient ID: Marcie Neal [...] nursing note reviewed. Exam conducted with a plant electrical engineer present. Vitals: Estimated body mass index is [...] of: Shanda Philip DO documented in this encounterNOMS Healthcare Evaluation + Plan note Note Date & TypeNoteFacilityEvaluation + Plan note No data available for this section [facility] Evaluation note Note Date & TypeNoteFacilityEvaluation note* Diagnosis Well woman exam with routine gynecological exam Routine gynecological examination Postmenopausal state Asymptomatic postmenopausal status (age-related) (natural) Breast cancer screening by mammogram documented in this encounter [facility] Evaluation note Note Date & TypeNoteFacilityEvaluation noteNo assessment information available [facility] Work Phone: Hospital Discharge instructions Note Date & TypeNoteFacilityHospital Discharge instructions No data available for this section [facility] Progress note Note Date & TypeNoteFacilityProgress note No data available for this section [facility] Summary Purpose Family History Relationship Condition Age at Onset Recorded Date/T marcus father Unknown Malignant neoplasmUnknownfamily memberDeceasedUnknownmotherHypertensionUnknown Heart diseaseUnknown Advance Directives Advance Directive Response Recorded Date/ Time Advance Directives No March 08 10:50am Chief Complaint and Reason for Visit Chief Complaint Admit Date R92.8 January 24, 2025 1:31p m Additional Source Comments INFORMATION SOURCE (unrecogn ized section and content) DATE CREATED AUTHOR 01/01/2023 [facility] DATE CREATED AUTHOR AUTHOR'S ORGANIZ ATION 04/16/2024 [facility] EPIC DATE CREATED AUTHOR AUTHOR'S ORGANIZ ATION 03/14/2025 [facility] DATE CREATED AUTHOR AUTHOR'S ORGANIZ ATION 06/15/2025 [facility] Care Teams (unrecognized sec tion and content) Team MemberRelationshipSpecialtyStart DateEnd Date Kelly Andrew MD [address] [place] [address] PCP - GeneralFamily Medicine02/12/23Team MemberRelationshipSpecialtyStart DateEnd Date Kelly Andrew MD [address] [place] [phone] PCP - [facility]02/12/23Team MemberRelationshipSpecialtyStart DateEnd Date Kelly Andrew MD [address] [place] [phone] PCP - [facility]02/12/23 Team Status: Active Member Role Status Dates Kelly Andrew MD Primary Care Provider Active Team Status: Inactive Member Role Status Dates Kelly Andrew MD Primary Care Provide r, Attending Provider Active Start: January 24, 2025 End: January 24, 2025Team MemberRelationshipSpecialtyStart DateEnd Date Kelly Andrew MD PCP - [facility]02/12/23 Reason for Visit (unrecogniz ed section and content) ReasonCommentsWell Women Visit Goals (unrecognized section and content) Goals may be documented in a n alternate section No data available for this section FOR RECORDS PERTAINING TO PATIENTS WHO [...] BE BASED ON THE PRIMARY CLINICAL RECORDS. [employer] [facility]. provides no warranty or guarantee of the accuracy or completeness of information in this document.
== END 2025-06-27 10:07 | disposition home or self-care (01) ==
LOC: PST 10:07
PROVIDERS: PCP Family Medicine; Visit Provider Surgery
DX: Z01.818 Encounter for other preprocedural examination (principal); Z80.0 Family history of malignant neoplasm of digestive organs; Z12.11 Encounter for screening for malignant neoplasm of colon

== ENCOUNTER 2025-06-30 07:20 | Outpatient (RCR) | payer MEDICARE, SELFPAY ==
[2025-06-30 07:35] VITALS: BP 123/69; PULSE 72; TEMP 36.3; O2SAT 94
[2025-06-30 08:09] LABS: Calcium 9.2 mg/dL (8.5-10.1); Estimated GFR (African America >60 (>=60 mL/min/1.73m^2); Estimated GFR (Non-African Ame >60 (>=60 mL/min/1.73m^2)
[2025-06-30] MEDS: DENOSUMAB 60 MG/ML SYRINGE SQ (08:29)
== END 2025-07-24 08:27 | disposition home or self-care (01) ==
LOC: LAB 07:20
PROVIDERS: PCP Family Medicine; Visit Provider Obstetrics & Gynecology
DX: Z51.81 Encounter for therapeutic drug level monitoring (principal); Z78.0 Asymptomatic menopausal state; M81.0 Age-related osteoporosis without current pathological fracture
CPT/HCPCS: 36415; 82310; 82565; 96372; J0897

== ENCOUNTER 2025-07-05 06:42 | Day surgery (SDC) | payer MEDICARE, SELFPAY ==
--- NOTE | 2025-07-05 | OP_ITS ---
OPERATION DATE: 07/05/2025 PREOPERATIVE DIAGNOSIS: Family history of colon cancer in patient?s father. POSTOPERATIVE DIAGNOSIS: Normal colonoscopy to cecum. PROCEDURE: Colonoscopy to cecum. SURGEON: Dakota King M.D. ANESTHESIA: Monitored anesthesia care. ESTIMATED BLOOD LOSS: Zero. INDICATIONS AND CONSENT: Patient is a 65-year-old female with a family history of colon cancer in patient?s father, diagnosed at age 45. Her last colonoscopy was 2018 and was normal. She now presents for a surveillance colonoscopy. Indications, risks, benefits, alternatives of proceeding with colonoscopy were explained extensively to the patient, including the risks of bleeding, colon perforation or anesthetic complications. All of her questions were answered. Informed consent was obtained. PROCEDURE: Patient brought to the operating room, placed in the left lateral decubitus position. Monitored anesthesia care was provided. Rectal exam was performed which showed no masses or blood. The scope was inserted into the anal canal. Under direct visualization was advanced. It was advanced to the cecum where cecal markings were clearly identified. Upon withdrawal of the scope, mucosal surfaces were carefully examined. There was noted to be a good prep. There were no mass lesions or polyps. No inflammatory changes or ulcerations. There were rare sigmoid diverticula without inflammatory changes or scarring. The scope was retroflexed in the anal canal. There was no significant hemorrhoidal disease. The scope was then withdrawn. Patient tolerated procedure well, was sent to recovery room in good condition. Follow up surveillance colonoscopy should be in five years due to the family history. CC: Ramon Andrew M.D. MTDLisseth
--- OUTSIDE RECORDS SUMMARY | 2025-07-05 06:46 | XMS_ITS | CCD ---
Author Organization [facility] Care Team Providers Care Alligator Hunter Name Role Phone MACI ., DR MENDOZA Primary Care Unavailable MACI Baptiste, DR MENDOZA Consulting Unavailable MACI Baptiste, DR MENDOZA Attending Unavailable MACI ., DR MENDOZA Admitting Unavailable WES, DR LASHA Stevens Consulting Unavailable SHANDA PHILIP Attending Unavailable Kelly Andrew MD Primary Care Provider [phone] Kelly Andrew MD Primary Care Provider [phone] Kelly Andrew MD Attending Provider [phone] Kelly Andrew Attending Unavailable Kelly Andrew Primary Care Unavailable Kelly Andrew Admitting Unavailable Kelly Andrew Primary Care Physician Dakota MARIE Attending Unavailable Kelly Andrew MD Primary Care Provider Allergies Allergy ClassificationReported Allergen(s)Allergy TypeDate of OnsetReaction(s) Facility (1 source)No Known Medication Allergies; Translations: [No Known Medication Allergies]Propensity to adverse reactions (disorder)[facility] Repository Medications Current Medications MedicationDrug Class(es)DatesSig (Normalized)Sig (Original)alendronic acid 70 mg oral tablet (1 source)BisphosphonateStart: 29-52-1284gopv 1 tablet by mouth every week Alendronate 70 mg Tablet Active 70 MG PO every week March 09, 2018 12:00am Takes on Thursday morningALPRAZolam 0.25 mg oral tablet (1 source)BenzodiazepineStart: 76-39-6237Kzalaatzcm 0.25 mg Tablet Active 0.25 MG PO 2-3 TIMES PER DAY as needed for Anxiety March 09, 201812:00amascorbic acid 1000 mg oral tablet (1 source)Vitamin CStart: 35-11-6328ldsk 1 g by mouth once dailyAscorbic Acid [...] / vitamin e 6.75 mg chewable tablet (8 sources)Nicotinic Acid, Vitamin A, Vitamin B12, Vitamin D, Vitamin CPediatric Multivitamins-Fl (MultiVitamin + Fluoride) 0.25 MG chewable tablet Multivitamin Activeatorvastatin 20 mg oral tablet (11 sources)HMG-CoA Reductase InhibitorStart: 81-37-5522gnuv 1 tablet by mouth once dailyatorvastatin 20 mg Tab 20 mg = 1 tab(s), Oral, Daily, Refills(s) 0 Start Date: 05/17/25 Status: Ordered Repeat number: 1Start: 37-11-3273xzxq 1 tablet by mouth once daily in the eveningatorvastatin (Lipitor) 20 MG tablet Indications: Hyperlipidemia, unspecified hyperlipidemia type (CMS/HCC) TAKE 1 TABLET BY MOUTH EVERY DAY IN THE EVENING 90 tablet 02/29/2024 ActiveStart: 10-18-2023 End: 94-39-7554zuwr 1 tablet by mouth once daily in the eveningAtorvastatin 20 mg tablet Active 0 .ROUTE .COMPLEX 90 January 17, 2024 3:49pm TAKE ONE TABLET BY MOUTH EVERY EVENINGStart: 03-09-2018 End: 66-61-8407kuxh 1 tablet by mouth at bedtimeAtorvastatin 20 mg tablet Discontinued 20 MG PO Bedtime March 09, 2018 12:00am October 1847:29pm biotin 10 mg oral capsule (1 source)Start: 23-58-7493pqfb 1 capsule by mouth once dailyBiotin 10,000 mcg Capsule Active 51232 MCG PO Daily March 09, 2018 12:00amcalcium carbonate 1500 mg / cholecalciferol 0.01 mg oral tablet (1 source)Vitamin DStart: 10-57-5433wocw 1 tablet by mouth once dailyCalcium Carbonate-Vitamin D3 (Calcium 600 + D(3)) 600 mg(1,500mg) -400 unit Tablet Active 1 TAB PO Daily March 09, 2018 12:00amCalcium Citrate / Vitamin D (1 source)Start: 65-96-1502expqwni-vitamin D Refill(s) 0 Start Date: 06/13/25 Status: Ordered Repeat number: 1cholecalciferol 0.05 mg oral capsule (1 source)Vitamin DStart: 22-40-3109rqcc 1 capsule by mouth once daily Cholecalciferol (Vitamin D3) (Vitamin D3) 2,000 unit Capsule Active 2000 UNIT PO Daily March 09, 2018 12:00amcitalopram 20 mg oral tablet (10 sources)Serotonin Reuptake InhibitorStart: 03-09-2018 End: 70-62-8998zbqx 1 tablet by mouth in the morningcitalopram (CeleXA) 20 MG tablet Indications: Anxiety, generalized Take 1 tablet (20 mg) by mouth in the morning. 90 tablet 2 10/14/2024 07/11/2025 ActiveStart: 51-64-6970sgad 1 tablet by mouth once dailyCitalopram 10 mg tablet Active 10 MG PO Daily March 09, 2018 12:00am1 ml denosumab 60 mg/ml prefilled syringe (1 source)RANK Ligand InhibitorStart: 12-94-2668Bbtekq 60 mg/mL subcutaneous solution 60 mg, SubCutaneous, q6mo, Refills(s) 0 Start Date: 05/17/25 Status: Ordered Repeat number: 1melatonin 5 mg oral tablet (1 source)Start: 48-52-4033dzyz 1 tablet by mouth once daily at bedtime as neededmelatonin 5 mg oral tablet 5 mg = 1 tab(s), Oral, Once a day (at bedtime), PRN for insomnia, Refills(s) 0 Start Date: 05/17/25 Status: Ordered Repeat number: 1Multi Vitamins oral tablet (1 source)Start: 39-18-5937vsfr 1 tablet by mouth once dailyMulti Vitamins oral tablet 1 tab(s), Oral, Daily, Refill(s) 0 Start Date: 05/17/25 Status: Ordered Re peat number: 1Multivitamin (Multiple Vitamins) Tablet (1 source)Start: 95-59-1484oupf 1 tablet by mouth once daily in the morning Multivitamin (Multiple Vitamins) Tablet Active 1 TAB PO Every morning March 09, 2018 12:00am Completed/Discontinued Medications MedicationDrug Class(es)DatesSig (Normalized)Sig (Original)[place]-3 Fatty Acids- Fish Oil (1 source)Start: 03-09-2018 End: 08-27-8143gjtn 1 capsule by mouth once dailyOmega-3 Fatty Acids-Fish Oil (Fish Oil) 300-1,000 mg Capsule Discontinued 1 CAP PO Daily February 12:00am March 12, 2018 9:28am Problems Active Problems Problem ClassificationProblemDateDocumented DateEpisodic/ChronicAnxiety disorders (1 source)Ayhdrjq51-44-6907MdabokfPhnmatzlh of lipid metabolism (1 source)Kusprcpeywqukaavjwny73-95-5002TglwhvzJykl disorders (1 source)Major depressive xavczczu42-47-1656QaetvobMeliystwphiq (1 source)Cnzfbpovuvvm19-20-4102JgziaprEokjz nutritional; endocrine; and metabolic disorders (1 source)Body mass index 30+ - -17-2726MzzpjtzRkbpr nutritional; endocrine; and metabolic disorders (1 source)Obesity caused by energy zfcnpunbc53-26-4125OcoijwcZhqzy screening for suspected conditions (not mental disorders or infectious disease) (7 sources)Encounter for screening mammogram for malignant neoplasm of breast; Translations: [Patient encounter status]Onset: 68-40-3072ZgqbmcuhBuboopqa codes; unclassified (1 source)Sleep bloxh30-17-2270XvdsbziFtlgkuft codes; unclassified (1 source)Family history of malignant neoplasm of digestive organs; Translations: [FAM HX MALIG NEOPLASM DIGESTIV ORGN]Onset: 89-42-8088Kwcaxpda Residual codes; unclassified (1 source)Family history of malignant neoplasm of digestive organ; Translations: [Family history of malignantneoplasm of digestive organs]Onset: 06-13-2025 EpisodicResidual codes; unclassified (1 source)Family history of cancer of vtfis40-40-0744Pepacpvl Past or Other Problems Problem ClassificationProblemDateDocumented DateEpisodic/ChronicResidual codes; unclassified (2 sources)Postmenopausal state; Translations: [Asymptomatic menopausal state] 28-53-5565Kaowgmmi Results Test NameValueInterpretationReference RangeFacilityCCF CALCIUMon 06-30-2025 Calcium [Mass/Vol]9.2 mg/dL8.5 - 10.1 mg/dLSoutheast Missouri Community Treatment CenterNo Panel Informationon 36-17-3857YZWMOUYJOZJBH HealthcareTB CREATININEon 86-33-7889Kdmdlxduug [Mass/Vol]0.74 mg/dL0.55 - 1.02 mg/dLSoutheast Missouri Community Treatment CenterGFR/1.73 sq M.predicted CKD- EPI (S/P/Bld) [Vol rate/Area]>60>=60 mL/min/1.73m 2NChristian HospitalTB EGFR-NON AF MONGOLIAN>60>=60 mL/min/1.73m 2[facility] HealthcareAmbulatory Visit Summaryon 52-29-6704Pdogvnrfmo Visit SummaryAmbulatory Visit Summary MARCIE NEAL :1960 Visit Date:06/13/2025 Ambulatory Visit Instructions Your Diagnosis Family history of colon cancer in father Your Care Team Attending Physician - Dakota MARIE MD Primary Care Physician - Kelly Andrew MD [...] signed up for this yet, please contact [facility] Information Management at [phone] to get signed up today. Language Information Language assistance services are available as needed. [facility] HospitalMM [facility] LT w/CADon 57-98-7013EI special view LT w/CADASHTABUL[facility] [address] [place] [address] Mammography Report Signed Patient: Marcie Neal MR#: [id number] : 1960 Acct:[id number] Age/Sex: 64 / F Adm Date: 01/24/25 Loc: [place] Room: Type: [facility] Attending Dr: Kelly Andrew MD Ordering Provider: Kelly Andrew MD Date of Service: 01/24/25 Procedure(s): MM special view LT w/CAD Accession Number(s): ([id number]) MM/MM special view LT w/CAD: R92.8 Copies [...] Garcia M.D. 01/24/2025 2:21 PM Dictation Location: [facility] Dictated By: Blas Garcia II, MD 01/24/25 1357 Signed By: 01/24/[address] [place] [address] Physician GroupMammography reportOrdered By: Blas Garcia on 14-50-8904Icdzwljglx imaging [facility] [address] [place] [address] Mammography Report Signed Patient: Marcie Neal MR#: [id number] : 1960 Acct:[id number] Age/Sex: 64 / F Adm Date: 5 Loc: [place] Room: Type: [facility] Attending Dr: Kelly Andrew MD Ordering Provider: Kelly Andrew MD Date of Service: 01/24/25 Procedure(s): MM special view LT w/CAD Accession Number(s): ([id number]) MM/MM special view LT w/CAD: R92.8 Copies [...] Garcia M.D. 01/24/2025 2:21 PM Dictation Location: [facility] Dictated By: Blas Garcia II, MD 01/24/25 1352 Signed By: 01/24/25 1421 [facility] Work Phone: CCS CALCIUMon 84-55-7215Tfdipxd [Mass/Vol]8.7 mg/dL8.5 - 10.1 mg/dLNOIA HealthcareNo Panel Informationon 94-81-4248LLXBZUHQRPJKR HealthcareTBH CREATININEon 86-07-9272Xatgjvtipj [Mass/Vol]0.92 mg/dL0.55 - 1.02 mg/dLNOIA HealthcareGFR/1.73 sq M.predicted CKD-EPI (S/P/Bld) [Vol rate/Area]>60 >=60 mL/min/1.73m 2NOMS HealthcareTB EGFR-NON AF MONGOLIAN>60>=60 mL/min/1.73m 2 NOMS HealthcareCCF CALCIUMon 59-40-6611Yvuxasy [Mass/Vol]9.2 mg/dL8.5 - 10.1 mg/dLNOIA HealthcareNo Panel Informationon 63-64-2155NDUACNESNNOGM HealthcareTB CREATININEon 22-70-4490Fokpeblwan [Mass/Vol]1.01 mg/dL0.55 - 1.02 mg/dLNOIA HealthcareGFR/1.73 sq M.predicted CKD-EPI (S/P/Bld) [Vol rate/Area]>60>=60 mL/min/1.73m 2NOMS HealthcareInterpretation and review of laboratory results AbnormalNOSaint Luke's East Hospital EGFR-NON AF CFUKMGVC65Lzf>=60 mL/min/1.73m 2NOMS HealthcareXR DEXA AXIAL SKELETONon 71-12-1780[address] [address] XRay Report Signed Patient: MARCIE NEAL MR#: [id number] : 1960 Acct:[id number] Age/Sex: 64 / F ADM Date: 04/22/24 Loc: RAD Attending Dr: Shanda Philip D.O. Ordering Physician: Shanda Philip D.O. Date of Service: 04/22/24 Procedure(s): XR DEXA axial skeleton Accession Number(s): [id number] cc: Shanda Philip D.O.; Kelly Andrew M.D. [address] [address] Patient Name: MARCIE NEAL MRN: TBH:[id number] date: 1960 Sex: F Assigned Patient Location: [facility] Current Patient Location: Accession/Order Number: [id number] Exam Date: 04/22/2024 07:55 Report Date: 04/26/2024 [...] prevention and treatment of osteoporosis. Osteoporos Int. 2021;33(10):7253-6474. doi: 10.1007/o34170-542-78664-u. Epub 2021Dec 19. Erratum in: Osteoporos Int. 2021Mar 20;: PMID: 38173346; PMCID: [id number]. Electronically authenticated by: LASHA HERNANDEZ Date: 04/26/2024 04:25 Dictated By: Lasha Hernandez M.D. Signed By: 04/26/24427 DD/ 4 TD/TT: Bagman/Woman:TBHRadiology, Radiologist, - 04/26/[address] [address] XRay Report Signed Patient: MARCIE NEAL MR#: [id number] : 1960 Acct:[id number] Age/Sex: 64 / F ADM Date: 04/22/24 Loc: RAD Attending Dr: Shanda Philip D.O. Ordering Physician: Shanda Philip D.O. Date of Service: 04/22/24 Procedure(s): XR DEXA axial skeleton Accession Number(s): [id number] cc: Shanda Philip D.O.; Kelly Andrew M.D. [place] [address] Patient Name: MARCIE NEAL MRN: [facility]:[id number] date: 1960 Sex: F Assigned Patient Location: [facility] Current Patient Location: Accession/Order Number: [id number] Exam Date: 04/22/2024 07:55 Report Date: 04/26/2024 [...] prevention and treatment of osteoporosis. Osteoporos Int. 2021;33(10):7022-1040. doi: 10.1007/y98425-865-88050-t. Epub 2021Dec 19. Erratum in: Osteoporos Int. 2021Mar 20;: PMID: 88298585; PMCID: SQD6238030. Electronically authenticated by: LASHA HERNANDEZ Date: 04/26/2024 04:25 Dictated By: Lasha Hernandez M.D. Signed By: 04/26/24427 DD/ 4 TD/TT: Bagman/Woman: [facility] HealthcareRadiology Study observation (narrative)[facility] Treatment CenterXR DEXA AXIAL SKELETONOrdered By: Radiologist Radiology on 92-75-4439XIVT Healthcare Work Phone: IGP,APTIMA HPV,AGE GDLNon 62-35-3702ONM GDLN ACOG TESTINGNote.[facility] HealthcareComment on above:TESTS RESULT FLAG UNITS REF RANGE LAB Clinician Provided Cytology Information Source.............Vagina No. of containers..01 ThinPrep Vial Age Algo ACOG Nathalie... 30-65 01 FLAG LEGEND: L-Low Normal,H-High Normal,LL-Alert Low,HH-Alert High <-Panic Low,>-Panic High,A-Abnormal,AA-Critical Abnormal Performed at: 01 =[address] [address] Fela Avendano MD, HPV APTIMANegativeNegativeNOMS HealthcareComment on above:This nucleic acid amplification test detects fourteen high- risk HPV types (16,18,31,33,35,39,45,51,52,56,58,59,66,68) without differentiation. Performed at: =[facility] [id number] Trumpet Teacher: Fela Avendano MD, Phone: [phone] Performed at: [address] [id number] Trumpet Teacher: Fela Avendano MD, Phone: [phone] IGP, APTIMA HPV, RFX 16/18,45Note.NOMS HealthcareComment on above:TESTS RESULT FLAG UNITS REF RANGE LAB DIAGNOSIS: 02 NEGATIVE FOR INTRAEPITHELIAL LESION OR MALIGNANCY. Specimen adequacy: 02 Satisfactory for evaluation. Performed by: Teodoro Leach, Shovel Loader Operator (ASC) . 02 Note: Note 02 The [...] <-Panic Low,>-Panic High,A-Abnormal,AA-Critical Abnormal Performed at: [address] [address] Fela Avendano MD, SPATULA-ALONE [facility] MAMM SCREEN 3D KAE CADon 49-92-9879UL MAMM SCREEN 3D KAE CADPatient: MARCIE NEAL Exam Date: 12/26/2022 : 1960 Gender:F Ordering : DR KELLY ANDREW . Admission #: [id number] Family : Order #: [id number] CLICK HERE TO VIEW EXAM RADIOLOGY REPORT [...] colon cancer at age 47. LOCATION: [facility] BREAST COMPOSITION: Scattered areas fibroglandular density. [...] by: Lasha Hernandez M.D. on 12/29/2022 at 11:50[facility] Vital Signs Date TimeVital SignValuePerforming RbbcglzneVuhsmjek48-78-1619 10:04-0400Body gfmavr075.6 cmCorey Cedrick DO Work Phone: [facility] Treatment CenterHozvujstse38-52-7675 10:04-0400Body mass index (BMI) [Ratio]27.76 kg/w8Mmosr Cedrick DO Work Phone: [place] [address]Oqmyqqhubh32-53-0978 10:04-0400Body kskphe56.02 kgCorey Cedrick DO Work Phone: [place] [phone] 10:04-0400Diastolic blood bjwtagvv44 mm[Hg]Shanda Cedrick DO Work Phone: [place] [phone] 10:04-0400Systolic blood nggdruwo224 mm[Hg]Shanda Cedrick DO Work Phone: noIA Healthcare Encounters Encounter DateEncounter TypeCare ProviderFacilityStart: 06-30-2025 End: 13-86-2405Mprxputkn Result EncounterCorey Cedrick DO Work Phone: noms External Department UnsolicitedStart: 06-30-2025 End: 04-20-6558Eihkeapuc Result EncounterCorey Cedrick DO Work Phone: n[facility] External Department UnsolicitedStart: 06-13-2025 End: 10-20-4863hfmetzuumpPagjlff R NILLFacility: MichelleevueStart: 06-13-2025 End: 57-55-5476Fdiyqhq encounter procedureMichael R NILL [phone]-YlxlbKettering Health [facility] Edwin Start: 88-26-3821xcrggkwxtkPwbjnry NILLFacility:MARTÍN BellevueStart: 01-24-2025 End: 24-03-6434Cagvnpc encounter procedureKelly Andrew MD Work Phone: [facility] Work Phone: Start: 01-24-2025 End: 66-86-3546wvtaypmpzfJtimqat M Hoy MD Work Phone: [facility] Work Phone: Start: 12-05-2024 End: 46-89-9524Rxbwbtyjf Result EncounterCorey Cedrick DO Work Phone: noms External Department UnsolicitedStart: 12-05-2024 End: 71-26-2010Wmthedpzd Result EncounterCorey Cedrick DO Work Phone: noms External Department UnsolicitedStart: 06-01-2024 End: 38-06-9470Rjjplltrw Result EncounterCorey Cedrick DO Work Phone: noms External Department UnsolicitedStart: 06-01-2024 End: 84-95-5458Vmagniyzw Result EncounterCorey Cedrick DO Work Phone: noms External Department UnsolicitedStart: 04-26-2024 End: 86-35-4142Chxzclsmd Result EncounterCorey Cedrick DO Work Phone: noms External Department UnsolicitedStart: 04-26-2024 End: 11-51-6593Rtutajipk Result EncounterCorey Cedrick DO Work Phone: noms External Department UnsolicitedStart: 04-14-2024 End: 80-21-4279Fqahnu flowsheetCorey Cedrick DO Work Phone: [facility] BCP OBStart: 04-14-2024 End: 09-58-2999Chqbox flowsheetCorey Cedrick DO Work Phone: n[facility] BCP OBStart: 04-14-2024 End: 52-54-3109Ipvjfodey Result EncounterCorey Cedrick DO Work Phone: noms External Department UnsolicitedStart: 04-14-2024 End: 64-09-5481Intlbti encounter procedureCorey Cedrick DO Work Phone: NOOO HealthcareStart: 04-14-2024 End: 45-66-4613Zjrsqwrb preventive med est patient 65yrs& olderCorey Cedrick DO Work Phone: [facility] OBComment on above:Well woman exam with routine gynecological exam; Postmenopausal state; Breast cancer screening by mammogramStart: 04-14-2024 End: 48-00-4992lhblagkpydJLFEV FAZIONot AvailableStart: 12-26-2022 End: 14-29-6146qokyarnbxiKZ KELLY ANDREW .Facility: Procedures DateProcedureProcedure DetailPerforming ClinicianStart: 56-35-5557OZJ CALCIUM Shanda Cedrick DO Work Phone: Start: 84-37-3018YVQ CREATININECorey Cedrick DO Work Phone: Start: 95-49-7230Kbqmhepiahz of left breastDougchidi Andrew MD Work Phone: Start: 51-14-7021QAQ CALCIUMCorey Cedrick DO Work Phone: Start: 58-09-8685GAC CREATININECorey Cedrick DO Work Phone: Start: 31-76-3759JRN CALCIUMCorey Cedrick DO Work Phone: Start: 80-01-6350PBM CREATININECorey Cedrick DO Work Phone: Start: 66-94-8334QZ DEXA AXIAL SKELETONCorey Cedrick DO Work Phone: Start: 32-48-0771KTZ,APTIMA HPV,AGE GDLNCorey Cedrick DO Work Phone: Start: 22-09-2590GkfpnnocwjtAxqtqde NILL AppendectomyMichael NILL ColonoscopyMichael NILL History of nasal sinus surgeryMichael NILL Total abdominal hysterectomy with bilateral salpingo-oophorectomyMichael NILL Plan of Treatment DateCare ActivityDetailAuthorStart: 07-26-2025 End: 78-81-4662Dfxuggz encounter ukryjuijl77/03/2025 1:00 PM EST Procedure Visit [facility] [address] [place] [phone] Elizabeth Crockett PA [address] [place] [address] DARWIN Pineda OBGYNStart: 04-14-2024 End: 15-77-7270ZYU Skeletal system Views for bone densityDEXA bone density Imaging Routine Postmenopausal state Expected: 04/14/2024 (Approximate), Expires:04/14/2025[facility] Work Phone: comment on above:Expected: 04/14/2024 (Approximate), Expires: 04/14/2025Start: 04-14-2024 End: 59-51-1414Jghkvsk encounter vhprpiefd71/22/2024 10:00 AM EDT Office Visit [facility] [address] [place] [phone] Shanda Philip DO [address] [place] [address] ArrivedNOMS BCP OBComment on above:ArrivedTHIN PREP TIS PAP AND HR HPV DNATHIN PREP TIS PAP AND HR HPV DNA Pathology and Cytology Routine Well woman exam with routine gynecological exam Ordered: 04/14/2024NOIA HealthcareComment on above:Ordered: 04/14/2024 Immunizations Immunization DateImmunizationNotesCare KxupqtshBsclrlpz43-99-5419BPHX-KpV-8 (COVID-19) mRNA BNT-162b2 vaxMichael NILL [phone]-DshzoKettering Health [facility] [place] 70-11-5232TNEL-CoV-2 (COVID-19) mRNA BNT-162b2 vaxMichael NILL [phone]-YdbpiMary [facility] [place] 97-30-0971ikusxwchn virus vaccine, unspecified formulationKelly Andrew MD Work Phone: [facility] Payers DatePayer CategoryPayerPolicy ID2025Medicare [id number] (Managed Care)[facility] [id number] HEALTH WAXHAW [id number] 2024-Present [address] [place] [address] [id number] [id number] 2.0.1.891919.3.57[id number] 2.0.1.084319.3.579.[id number] 2.0.1.53[id number] 509o9794-8761-1448-[id number] 2.0.1.053992.3.579.2.531 Social History DateTypeDetailFacilityTobacco smoking status NHISTobacco smoking consumption unknownSALT [facility] HealthcareStart: 64-79-7616Mot assigned at [facility] HealthcareStart: 20-04-3565Hwzvtr identityIdentifies as female gender (finding) [facility] HealthcareStart: 78-79-8879Uajzjp orientationHeterosexual (finding)[facility] HealthcareStart: 04-22-2017 End: 59-90-2572Klucids smoking status NHISNever smoked tobacco (finding) [facility]2018 End: 54-20-9246ZgtDmqfmd (finding)[facility]: 33-98-8315Pnibrxm smoking statusNeverMary [facility] Surgery [address] Hospitalexual OrientationMary [facility]an Hospital Surgery [place] [facility]igned At [facility] Clinical Note 06-13-2025 Note Date & XfdwChmjBxqagnqm70-27-9782 NoteGeneral Surgery Office/Clinic Note Chief Complaint consultation [...] father, dx at age 45; last colonoscopy 2019, wnl; denies change in bms or blood [...] Recorded SARS-CoV-2 (COVID-19) mRNA BNT-162b2 vax 11/09/2020 RecordedOhiohealth Mansfield HospitalComment on above:Result Comment: Electronically Signed By: CYNTHIA ORELLANA, Dakota Mejia\Date and Time Signed: 06/13/25 13:32 EDT History of Present illness Narrative 04-14-2024 Note Date & AwojDixyEzviqfzu43-46-8075 History of Present illness Narrative* Ilene Alicea, QUARTZ MINER BLASTING - 04/14/2024 10:00 AM EDT Reason for [...] nursing note reviewed. Exam conducted with a photonics engineering technician present. Vitals: Estimated body mass index is [...] note No data available for this section [facility] [place] Evaluation note Note Date & TypeNoteFacilityEvaluation note* Diagnosis Well woman exam with routine gynecological exam Routine gynecological examination Postmenopausal state Asymptomatic postmenopausal status (age-related) (natural) Breast cancer screening by mammogram documented in this encounter [facility] Evaluation note Note Date & TypeNoteFacilityEvaluation noteNo assessment information available [facility] Work Phone: Hospital Discharge instructions Note Date & TypeNoteFacilityHospital Discharge instructions No data available for this section [facility] [place] Progress note Note Date & TypeNoteFacilityProgress note No data available for this section [facility] [place] Summary Purpose Family History Relationship Condition Age [...] and content) DATE CREATED AUTHOR 01/01/2023 [facility] DATE CREATED AUTHOR AUTHOR'S ORGANIZ ATION 04/16/2024 [facility] DATE CREATED AUTHOR AUTHOR'S ORGANIZ ATION 03/14/2025 [facility] DATE CREATED AUTHOR AUTHOR'S ORGANIZ ATION 06/15/2025 [facility] Care Teams (unrecognized sec tion and content) Team MemberRelationshipSpecialtyStart DateEnd Date Kelly Andrew MD [address] [place] [address] PCP - Generalmi Medicine02/12/23Team MemberRelationshipSpecialtyStart DateEnd Date Kelly Andrew MD [address] [place] [address] [facility] - [facility]02/12/23Team MemberRelationshipSpecialtyStart DateEnd Date Kelly Andrew MD [address] [place] [address] PCP - GeneralFami Medicine02/12/23 Team Status: Active Member Role Status Dates Kelly Andrew MD Primary Care Provider Active Team Status: Inactive Member Role Status Dates Kelly Andrew MD Primary Care Provide r, Attending Provider Active Start: January 24, 2025 End: January 24, 2025Team MemberRelationshipSpecialtyStart DateEnd Date Kelly Andrew MD PCP - [place] Health Services Medicine02/12/23Team MemberRelationshipSpecialtyStart DateEnd Date Kelly Andrew MD PCP - [facility] Medicine02/12/23 Reason for Visit (unrecogniz ed section and [...] BE BASED ON THE PRIMARY CLINICAL RECORDS. [facility]. provides no warranty or guarantee of the accuracy or completeness of information in this document.
--- OUTSIDE RECORDS SUMMARY | 2025-07-05 06:47 | XMS_ITS | Encounter Summary ---
Author Organization [facility] Address [address] [place] [address] Care Team Providers Care Wringer Operator Name Role Phone Ramon Andrew MD Primary Care Provider [phone] Encounter Details DateTypeDepartmentCare Team (Latest Contact Info)Tuegrwarqri53/03/2024Clinisync Result Encounter NOMS External Department Unsolicited Shanda Philip DO [address] Kajal [place], [facility]11 Social History Tobacco UseTypesPacks/DayYears UsedDateSmoking Tobacco: Never Assessed CommentsUnknownSex and Gender InformationValueDate RecordedSex Assigned at Tizfig4302/11/2023 7:59 PM EDTLegal FrdWbccxz22/15/2023 7:03 PM EDTGender Identity Tgohfu9702/11/2023 7:59 PM EDTSexual SsjmpsiwxpaZpnkklse04/21/2023 7:59 PM EDT documented as of this encounter Plan of Treatment DateTypeDepartmentCare Team (Latest Contact Info)Ewqqprtqfue55/03/2025 1:00 PM ESTProcedure Visit NOMChris BARLOW [address] [place] [address] Elizabeth Crockett PA [address] [place] [address] documented as of this encounter Procedures Procedure NamePriorityDate/TimeAssociated DiagnosisCommentsXR DEXA AXIAL UQSFFTSZ34/03/2024 4:25 AM EDT documented in this encounter Results * XR DEXA AXIAL SKELETON (04/26/2024 4:25 AM EDT)Anatomical RegionLaterality ModalityOtherSpecimen (Source)Anatomical Location / LateralityCollection Method / VolumeCollection TimeReceived Time04/26/2024 4:25 AM EDT Narrative 04/26/2024 4:28 AM EDT [facility] ?[address] ? [place] [address] ?XRay Report ? Signed ? Patient: MARCIE NEAL J ?MR#: [id number] ?? : 1960 ?Acct:[id number] ?? Age/Sex: 64 / F ?ADM Date: 04/22/24 ?? Loc: RAD ? Attending Dr: Shanda Philip D.O. ? Ordering Physician: Shanda Philip D.O. ?? Date of Service: 04/22/24 ?? Procedure(s): XR DEXA axial skeleton ?? Accession Number(s): [id number] ? cc: Shanda Philip D.O.; Ramon Andrew M.D. ? [facility] ? [address] ? [place] [address] ? Patient Name: ?? MARCIE NEAL ? MRN: [facility]:[id number] ? date: 1960 ?Sex: F ?? Assigned Patient Location: RAD ?? Current Patient Location: ? Accession/Order Number: [id number] ?? Exam Date: 04/22/2024 ??07:55 ?Report Date: [...] and treatment of osteoporosis. Osteoporos ?? Int. 2021;33(10):5975-5335. doi: 10.1007/a48618-746-95352-y. Epub 2021 Apr ? 28. Erratum in: Osteoporos Int. 2021Mar 20;: PMID: [id number]; PMCID: ?? [id number]. ? Electronically authenticated by: LASHA ??WES ?? Date: 04/26/2024 ??04:25 ? Dictated By: ?Lasha Hernandez M.D. ? Signed By: ?04/26/24427 ? DD/ 4 ? TD/TT: ? Piece Dyeing Machine Tender: Procedure Note Radiology, Radiologist, - 04/26/2024 [place] [address] XRay Report Signed Patient: MARCIE NEAL JMR#: [id number] : 1960cct:[id number] Age/Sex: 64 / FADM Date: 04/22/24 Loc: FRANCISCO Attending Dr: Shanda Philip D.O. Ordering Physician: Shanda Philip D.O. Date of Service: 04/22/24 Procedure(s): XR DEXA axial skeleton Accession Number(s): [id number] cc: Shanda Philip D.O.; Ramon Andrew M.D. The [place] [id number] Patient Name: MARCIE NEAL MRN: [facility]:[id number] date: 1960 Sex: F Assigned Patient Location: [facility] Current Patient Location: Accession/Order Number: [id number] Exam Date: 04/22/2024 07:55 Report Date: 04/26/2024 [...] 10-year hip fracture risk >= 3% or z25-dloa major osteoporosis-related fracture risk >= 20% (i.e., [...] to prevention and treatment of osteoporosis.Osteoporos Int. 2021;33(10):1563-5321. doi: 10.1007/y48816-081-08542-x. Ep. Erratum in: Osteoporos Int. 2021Mar 20;: PMID: 44546369; PMCID: [id number]. Electronically authenticated by: LASHA HERNANDEZ Date: 04/26/2024 04:25 Dictated By: Lasha Hernandez M.D. Signed By:04/26/24427 DD/ 4 TD/TT: Piece Dyeing Machine Tender: Authorizing ProviderResult TypeResult StatusCorey Cedrick DOCLINISYNC IMAGINGFinal Result documented in this encounter Visit Diagnoses Not on filedocumented in this encounter Care Teams Team MemberRelationshipSpecialtyStart DateEnd Date Ramon Andrew MD PCP - GeneralFamily Medicine02/12/23documented as of this encounter
--- OUTSIDE RECORDS SUMMARY | 2025-07-05 06:47 | XMS_ITS | Patient Health Record ---
Author Organization The [facility] in [place] Address [address] [place] [address] Care Team Providers Care Paper Cone Grader Name Role Phone Ryder Lux Primary Care Provider [phone] Allergies No Known Allergies Results Component Value Reference Range Notes MM tomosynthesis screening B I Reviewed date:01/02/2025 08:51:57 PM Interpretation: Performing Lab: Notes/Report: Source Facility: [place] [address] Mammography Report Signed Patient: RUY NEAL MR#: [id number] : 1960 Acct:[id number] Age/Sex: 64 / F ADM Date: 01/02/25 Loc: MAMMO Attending Dr: Kelly Lux M.D. Ordering Physician: Kelly Lux M.D. Results: Date of Service: 01/02/25 Follow Up: Procedure(s): MM tomosynthesis screening BI Accession Number(s): [id number] cc: Kelly Lux M.D. Patient Name: RUY NEAL MR#: [id number] : 1960 Exam Date: 01/02/2025 Ordering Doctor: DR KELLY LUX . RADIOLOGY REPORT PROCEDURE: MM TOMOSYNTHESIS SCREENING BI COMPARISON: MM TOMOSYNTHESIS SCREENING BI, 12/28/2023. MG MAMM SCREEN 3D KAE CAD, 12/26/2022. MG MAMM SCREEN 3D KAE CAD, 12/25/2021. MG MAMM SCREEN KAE W CAD, 11/17/2017. INDICATIONS: Screening Calculator Name NCI Breast Cancer Risk Assessment Tool 5 Year Breast Cancer Risk 1.50% Lifetime Breast Cancer Risk 5.60% Personal Breast Cancer No Personal Ovarian Cancer No Treatments None Family Cancers Father with colon cancer at age 48. LOCATION: [facility] BREAST COMPOSITION: There are scattered areas of fibroglandular density. FINDINGS: DIAGNOSTIC CATEGORY 0--INCOMPLETE: NEED ADDITIONAL IMAGING EVALUATION. RIGHT BREAST: No significant suspicious finding. LEFT BREAST: Asymmetry superior aspect of the left breast posterior depth on MLO view only. RECOMMENDATIONS: ADDITIONAL MAMMOGRAPHIC VIEWS REQUIRED: LEFT BREAST - spot-compression/true lateral views, possible ultrasound recommended. PLEASE NOTE: A NORMAL MAMMOGRAM DOES NOT EXCLUDE THE POSSIBILITY OF BREAST CANCER. A CLINICALLY SUSPICIOUS PALPABLE LUMP SHOULD BE BIOPSIED. Dictated by: Sami Russo DO on 01/02/2025 at 15:35 Approved by: Sami Russo DO on 01/02/2025 at 15:41 Dictated By: Sami Russo M.D. Signed By: 01/02/25 1542 DD/ 1541 TD/TT: Cold Working Supervisor: CALCIUM Reviewed date:07/02/2025 04:43:04 PM Interpretation: Performing Lab: Notes/Report: [facility] , Calcium 9.2 8.5-10.1 mg/dL Performing Lab:see Jh - [facility] LBCREATININE Reviewed date:07/02/2025 04:43:04 PM Interpretation: Performing Lab: Notes/Report: [facility] ,Creatinine0.740.55-1.02 mg/dLEstimated GFR ( Radha>60>=60 mL/min/1.73m 2Estimated GFR (Non- Afia>60>=60 mL/min/1.73m 2Performing Lab:see austinML - [facility] LBCBC AUTO DIFF Reviewed date:05/09/2025 05:26:58 PM Interpretation: Performing Lab: Notes/Report: [facility] ,White Blood Count5.94.0-11.0 10 3/uLRed Blood Count4.574.20-5.40 10 6/uL Pezogwhiug20.112.0-16.0 g/kFYsgthyaite60.836.0-48.0 %Mean Corpuscular Anucga44.5 81.0-99.0 fLMean Corpuscular Wcdhzogjuc02.926.7-34.0 pgMean Corpuscular HGB Conc 33.729.9-35.2 g/dLRed Cell Distribution Width12.811.0-15.0 %Platelet Ozxvk363 150-450 10 3/uLMean Platelet Volume8.79.5-13.5 fLNeutrophils Percent Auto57.3 43.0-75.0 %Lymphocytes Percent Auto29.020.5-60.0 %Monocytes Percent Auto8.91.7- 12.0 %Eosinophils Percent Auto2.90.9-7.0 %Basophils Percent Auto1.40.2-2.0 % Immature Granulocytes Pct Auto0.50.0-0.5 %Neutrophils Absolute Auto3.41.4-6.5 10 3/uLLymphocytes Absolute Auto1.71.2-3.8 10 3/uLMonocytes Absolute Auto0.50.3-0.8 10 3/uLEosinophils Absolute Auto0.20.0-0.7 10 3/uLBasophils Absolute Auto0.10.0- 0.1 10 3/uLImmature Granulocytes Abs Auto0.030.00-0.03 10 3/uLPerforming Lab:see note - [facility] LBCREATININE Reviewed date:12/05/2024 08:37:54 PM Interpretation: Performing Lab: Notes/Report: [facility] ,Creatinine0.920.55-1.02 mg/dLEstimated GFR ( Radha>60>=60 mL/min/1.73m 2Estimated GFR (Non- Afia>60>=60 mL/min/1.73m 2Performing Lab:see note - [facility] LBCALCIUM Reviewed date:12/05/2024 08:37:54 PM Interpretation: Performing Lab: Notes/Report: [facility] ,Calcium8.78.5-10.1 mg/dLPerforming Lab:[facility] LBTSH Reviewed date:05/09/2025 05:26:58 PM Interpretation: Performing Lab: Notes/Report: [facility] ,Thyroid Stimulating Hormone1.3010.358-3.740 uIU/mLPerforming Lab:see noteML - [facility] LBT4 Reviewed date:05/09/2025 05:26:58 PM Interpretation: Performing Lab: Notes/Report: [facility] ,T4 Thyroxine6.304.80-13.90 ug/dLPerforming Lab:see noteML - [facility] LBIRON Reviewed date:05/09/2025 05:26:58 PM Interpretation: Performing Lab: Notes/Report: [facility] ,Iron94.050.0-170.0 ug/dLPerforming Lab:see note - [facility] LB PROF 14(COMP METB) Reviewed date:05/09/2025 05:26:58 PM Interpretation: Performing Lab: Notes/Report: [facility] ,Sxucwt471035-142 mmol/LPotassium4.53.5-5.1 mmol/VGkocsobl01590-060 mmol/LCarbon Iizgrer50.921.0-32.0 mmol/LAnion Gap13.7Ltkikjv18759-881 mg/dLBlood Urea Kngbxlzf03.07.0-18.0 mg/dLCreatinine0.790.55-1.02 mg/dLEstimated GFR ( Radha>60>=60 mL/min/1.73m 2Estimated GFR (Non- Afia>60>=60 mL/min/1.73m 2BUN Creatinine Ratio19.0Btyraqy6.18.5-10.1 mg/dLBilirubin Total0.60.2-1.0 mg/dL Aspartate Amino Btqgljfidcv6343-56 U/LAlanine Svtqqcucjwqxdmga2585-80 U/L Alkaline Vmjgocguayw0994-386 U/LTotal Protein7.96.4-8.2 g/dLAlbumin Level4.13.4- 5.0 g/dLGlobulin3.8Albumin Globulin Ratio1.1Performing Lab:see noteML - [facility] LBLIPID PROFILE Reviewed date:05/09/2025 05:26:58 PM Interpretation: Performing Lab: Notes/Report: [facility] ,Gpqdedthwdpfh041<=150 mg/lOWkhvlqauwfp781<=200 mg/dLHDL Orslpcbrcux9009-99 mg/dL <40 mg/dl - HIGH CARDIOVASCULAR RISK > or =60 mg/dl - LOW CARDIOVASCULAR RISK LDL Cholesterol Dafmjavhvu32.0 <100 mg/dl OPTIMAL 160-189 mg/dl HIGH 130-159 mg/dl BORDERLINE HIGH >190 mg/dl VERY HIGH 100-129 mg/dl NEAR OR ABOVE OPTIMAL VLDL KFBGMUGUGOS78.4Chol HDL Ratio3.5 7.1 - 11.0 MODERATE RISK 3.3 - 4.4 LOW RISK 4.4 - 7.1 AVERAGE RISK >11.0 HIGH RISK Performing Lab:see note - [facility] LBFREE T3 Reviewed date:05/09/2025 05:26:58 PM Interpretation: Performing Lab: Notes/Report: [facility] Free T32.142.18-3.98 pg/mLPerforming Lab:see note - [facility] GLYCOHEMOGLOBIN A1C Reviewed date:05/09/2025 05:26:58 PM Interpretation: Performing Lab: Notes/Report: [facility] ,Glycohemoglobin A1C6.14.5-6.2 % ADA THERAPEUTIC TARGET < 7.0 ADA RECOMMENDED LIMIT 4.0 - 6.0 ACTION SUGGESTED > 7.0 Estimated Average Dispbxj455Ailnarrgtq Lab:see note - [facility] LB Reason For Referral Reason Fh colon cancer - ne eds colonoscopy Diagnosis 1 Well adult (Z00.00) Referral Organization [facility] Referring Provider First Name Ryder Referring Provider Last Name Lorrie Referring Provider Speciality Family Med wendy Referred Provider Dakota King Referred Provider Specialty General Surg mariajose Referral Priority Routine Medications Medication SIG (Take, Route, Frequency, Duration) Notes Start Date End Date Status Multivitamin - 1 tablet Orally Once a day ActiveCitalopram Hydrobromide 20 MG1 tablet Orally Once a dayActiveAtorvastatin Calcium 20 MG1 tablet Orally Once a dayActiveMelatonin 5 MG1 tablet at bedtime as needed Orally Once a dayActiveProlia 60 MG/ML1 mL Subcutaneous once a year 5Active Social History Tobacco Use: Social History Observation Description Date Details (start date - stop date) Never Smoker NA - NA Tobacco Use/Smoking Question Answer Notes Patient is a nonsmoker Alcohol Screen (Audit-C) Question Answer Notes Did you have a drink containing alcohol in the p ast year? Yes How often did you have 6 or more drinks on one occasion in the past year?Never (0 point)How many drinks did you have on a typical day when you were drinking in the past year?1 or 2 drinks (0 point)How often did you have a drink containing alcohol in the past year?Less than monthly (1 point)Qemvok6Lxejkqnjhcfkrm NegativeAUDIT-C (Standard) Question Answer Notes Did you have a drink containing alcohol in the p ast year? No Koqxnz5MimbugvawyixpwZamabtnc Problems Problem Type SNOMED Code ICD Code Onset Dates Problem Status W/U Status Risk Notes Problem Depression (092787407) Depression (F32.9) ActiveconfirmedProblemOsteoporosis (74677602)Osteoporosis (M81.0)Activeconfirmed ProblemWell adult (673487584)Well adult (Z00.00)ActiveconfirmedProblem hypercholesterolemia (disorder) (94893565)Hypercholesteremia (E78.00)Active confirmed Vital Signs Blood pressure diastolic 88 mm Hg 05/09/2025 Ozwzdt27 in05/09/2025lood pressure ejkbxedf974 mm Hg05/09/20258696Vwsico773.0 lbs 05/09/2025BMI32.12 kg/m205/09/2025 Encounters Encounter Location Date Provider Diagnosis [facility] [address] [place] [address] 05/09/2025 Ryder Lux Well adult Z00.00 ; Hypercholesteremia E78.00 ; Depression F32.9 and Osteoporosis M81.0 [facility] [address] [place] [address] 01/02/2025 Ryder Lux Abnormal mammogram o f left breast R92.8 [facility] [address] [place] [address] 01/25/2025 Ryder Lux [facility] [place] [address] [facility] [place] [address]/16/2025Ryder Lux Assessments Encounter Date Diagnosis (ICD Code) Assessment Notes Treatment Notes Treatment Clinical Notes Section Notes 05/09/2025 Well adult (ICD-10 - Z00.00) 05/09/2025Hypercholesteremia (ICD-10 - E78.00)01/02/2025bnormal mammogram of left breast (ICD-10 - R92.8)05/09/2025Depression (ICD-10 - F32.9)05/09/2025 Osteoporosis (ICD-10 - M81.0) Plan Of Treatment Pending Test Test Name Order Date CMP (COMPLETE METABOLIC PANEL) 4 CMP (COMPLETE METABOLIC PANEL) 3 HEMOGLOBIN A1C (GLYCO) 05/09/2025 HEMOGLOBIN A1C (GLYCO) 01/13/2024 HEMOGLOBIN A1C (GLYCO) 01/09/2023 IRON, TOTAL 05/09/2025 IRON, TOTAL 01/13/2024 IRON, TOTAL 01/09/2023 LIPID PANEL (CHOL/TRIG/HDL/LDL) 01/13/20 24 LIPID PANEL (CHOL/TRIG/HDL/LDL) 01/10/20 23 LIPID PANEL (CHOL/TRIG/HDL/LDL) 05/09/20 25 CBC WITH DIFF 01/09/2023 CBC WITH DIFF 01/13/2024 VITAMIN D, 25 LEVEL (TOTAL) 01/09/2023 Insulin Level 01/09/2023 MG MAMM DX 3D LT CAD 01/02/2025 XR DEXA BONE DENSITY 05/09/2025 THYROID PANEL (T4/TSH/FREE T3) 4 THYROID PANEL (T4/TSH/FREE T3) 5 THYROID PANEL (T4/TSH/FREE T3) 3 US BREAST COMPLETE LEFT 01/02/2025 CMP (COMP MET ARAGON) w/eGFR CKD-EPI 2024 CBC WITH DIFF 05/09/2025 Insurance Providers Payer Name Payer Address Payer Phone Subscriber Number Group Number Insured Name Patient Relationship to Insured Coverage Start Date Coverage End Date MMO ADVANTAGE CHOICE MEDICAR E HMO [address] [place] [address] [id number] Alejo Neal - patient is the insured Medical (General) History Medical History History ICD Code Sleep apnea, unspecified G47.30 Hypercholesteremia E78.00 Anxiety disorder, unspecified F41.9 Insomnia, unspecified G47.00 Surgical History Surgery Date(Month/Year) Hysterectomy Nasal surgeryColonoscopy
--- OUTSIDE RECORDS SUMMARY | 2025-07-05 06:47 | XMS_ITS | Encounter Summary ---
Author Organization [facility] Address [address] [facility] [place] [address] Care Team Providers Care Steel Fabricating Supervisor Name Role Phone Ramon Andrew MD Primary Care Provider [phone] Encounter Details DateTypeDepartmentCare Team (Latest Contact Info)Cqvwjxbzavs88/07/2025linisync Result Encounter NOMS External Department Unsolicited [place] Philip DO [address] Kajal [place]ined[place], [facility]11 Social History Tobacco UseTypesPacks/DayYears UsedDateSmoking Tobacco: Never Assessed CommentsUnknownSex and Gender InformationValueDate RecordedSex Assigned at Juacdo5702/11/2023 7:59 PM EDTLegal JlaSkdakt72/15/2023 7:03 PM EDTGender Identity Ceaokm8902/11/2023 7:59 PM EDTSexual VvrkshiqgkcByvddjsw66/21/2023 7:59 PM EDT documented as of this encounter Plan of Treatment DateTypeDepartmentCare Team (Latest Contact Info)Nunpkvsypmq22/03/2025 1:00 PM ESTProcedure Visit NOMChris BARLOW [address] [facility] [place] [address] Elizabeth Crockett PA [address] [place], [facility]11 documented as of this encounter Procedures Procedure NamePriorityDate/TimeAssociated DiagnosisCommentsTBH CREATININERoutine 06/30/2025 7:29 AM EST CCF ZKKEYFUOrpymae68/07/2025 7:29 AM EST documented in this encounter Results * [facility] CALCIUM (06/30/2025 7:29 AM EST)ComponentValueRef RangeTest MethodAnalysis TimePerformed AtPathologist SignatureCALCIUM9.28.5 - 10.1 mg/dLTBHSpecimen (Source)Anatomical Location / LateralityCollection Method / VolumeCollection TimeReceived Time06/30/2025 7:29 AM EST06/30/2025 7:30 AM EST Narrative CLINISYNC - 06/30/2025 8:10 AM EST Authorizing ProviderResult TypeResult StatusCorey Cedrick DOCLINISYNCFinal Result Performing OrganizationAddressCity/State/ZIP CodePhone Number CLINISYNC [facility]H * [facility] CREATININE (06/30/2025 7:29 AM EST)ComponentValueRef RangeTest Method Analysis TimePerformed AtPathologist SignatureCREATININE0.740.55 - 1.02 mg/dL TBHTBH EGFR-AF WALLISIAN>60>=60 mL/min/1.73m 2TBHTBH EGFR-NON AF WALLISIAN>60 >=60 mL/min/1.73m 2TBHSpecimen (Source)Anatomical Location / Laterality Collection Method / VolumeCollection TimeReceived Time06/30/2025 7:29 AM EST 06/30/2025 7:30 AM EST Narrative CLINISYNC - 06/30/2025 8:10 AM EST Authorizing ProviderResult TypeResult StatusCorey Cedrick DOCLINISYNCFinal Result Performing OrganizationAddressCity/State/ZIP CodePhone Number CLINISYNC TB documented in this encounter Visit Diagnoses Not on filedocumented in this encounter Care Teams Team MemberRelationshipSpecialtyStart Date Ramon Andrew MD PCP - GeneralFamily Medicine02/12/23documented as of this encounter
--- OUTSIDE RECORDS SUMMARY | 2025-07-05 06:48 | XMS_ITS | Clinical Summary ---
Author Organization [facility] Address [address] [facility] [place] [address] Care Team Providers Care Floor Layer Tile Name Role Phone Ramon Andrew MD Primary Care Provider [phone] Allergies No known active allergies Medications MedicationSigDispense QuantityRefillsLast FilledStart DateEnd DateStatus Pediatric Multivitamins-Fl (MultiVitamin + Fluoride) 0.25 MG chewable tablet MultivitaminActive atorvastatin (Lipitor) 20 MG tablet Indications:Hyperlipidemia, unspecified hyperlipidemia typeTAKE 1 TABLET BY MOUTH EVERY DAY IN THE EVENING 90 tablet 5Active citalopram (CeleXA) 20 MG tablet Indications:Anxiety, generalizedTake 1 tablet (20 mg) by mouth in the morning. 90 tablet 515Active Encounters DateTypeDepartmentCare LnlyGsferqfizrn22/07/2025Clinisync Result Encounter NOMS External Department Unsolicited Cuba Philip, 06/13/2025Telephone [facility] [address] [place] [address] [place] [id number] Ilene Alicea LPN from Last 3 Months Family History Medical HistoryRelationNameCommentsNo Known ProblemsDaughterColon cancerFatherNo Known ProblemsMotherNo Known ProblemsSonRelationNameStatusCommentsDaughterAlive FatherDeceasedMotherDeceasedSonAlive Social History Tobacco UseTypesPacks/DayYears UsedDateSmoking Tobacco: Never Assessed CommentsUnknownSex and Gender InformationValueDate RecordedSex Assigned at Xzemlg6702/11/2023 7:59 PM EDTLegal CtuWddmtn80/15/2023 7:03 PM EDTGender Identity Fpnalw4802/11/2023 7:59 PM EDTSexual DfgnmrulxdtAgrcracr69/21/2023 7:59 PM EDT Last Filed Vital Signs Vital SignReadingTime TakenCommentsBlood Riillswx936/6408 10:04 AM EDT Pulse--Temperature--Respiratory Rate--Oxygen Saturation--Inhaled Oxygen Concentration--Rnqlby88 kg (172 lb)04/14/2024 10:04 AM VHUZwukmk284.6 cm (5' 6 ) 04/14/2024 10:04 AM EDTBody Mass Index27.76004/14/2024 10:04 AM EDT Plan of Treatment DateTypeDepartmentCare Team (Latest Contact Info)Efkhtessvox58/03/2025 1:00 PM ESTProcedure Visit NOMS Edwin BARLOW [address] [facility] [address] Elizabeth Crockett PA [address] [facility] [place] [address] Procedures Procedure NamePriorityDate/TimeAssociated DiagnosisCommentsCCF CALCIUMRoutine 06/30/2025 7:29 AM EST TBH CYVYSQZGRNEploont16/07/2025 7:29 AM EST from Last 3 Months Results * TB CREATININE (06/30/2025 7:29 AM EST)ComponentValueRef RangeTest Method Analysis TimePerformed AtPathologist SignatureCREATININE0.740.55 - 1.02 mg/dL TBHTBH EGFR-AF BAHRAINI>60>=60 mL/min/1.73m 2TBHTBH EGFR-NON AF BAHRAINI>60 >=60 mL/min/1.73m 2TBHSpecimen (Source)Anatomical Location / Laterality Collection Method / VolumeCollection TimeReceived Time06/30/2025 7:29 AM EST 06/30/2025 7:30 AM EST Narrative CLINISYNC - 06/30/2025 8:10 AM EST Authorizing ProviderResult TypeResult StatusCorey Cedrick DOCLINISYNCFinal Result Performing OrganizationAddressCity/State/ZIP CodePhone Number CLINISYNC [facility] * [facility] CALCIUM (06/30/2025 7:29 AM EST)ComponentValueRef RangeTest MethodAnalysis TimePerformed AtPathologist SignatureCALCIUM9.28.5 - 10.1 mg/dLTBHSpecimen (Source)Anatomical Location / LateralityCollection Method / VolumeCollection TimeReceived Time06/30/2025 7:29 AM EST06/30/2025 7:30 AM EST Narrative CLINISYNC - 06/30/2025 8:10 AM EST Authorizing ProviderResult TypeResult StatusCorey Cedrick DOCLINISYNCFinal Result Performing OrganizationAddressCity/State/ZIP CodePhone Number CLINISYNC [facility] from Last 3 Months Insurance Care Teams Team MemberRelationshipSpecialtyStart DateEnd Ramon Andrew MD PCP - GeneralFamily Medicine02/12/23
[2025-07-05 06:50] VITALS: BP 103/73; PULSE 104; TEMP 36.2; O2SAT 94; BMI 32.8
[2025-07-05 08:41] VITALS: BP 124/77; PULSE 84; TEMP 36.4; O2SAT 97
[2025-07-05 08:55] VITALS: BP 121/58; PULSE 70; O2SAT 97
[2025-07-05 09:10] VITALS: BP 124/72; PULSE 74; O2SAT 97
== END 2025-07-05 09:20 | disposition home or self-care (01) ==
LOC: SURGOUT 06:44
PROVIDERS: PCP Family Medicine; Visit Provider Surgery
PROC: (CPT G0105; principal; 2025-07-05 07:55)
DX: Z12.11 Encounter for screening for malignant neoplasm of colon (principal); Z80.0 Family history of malignant neoplasm of digestive organs; K57.30 Diverticulosis of large intestine without perforation or abscess without bleeding; E78.00 Pure hypercholesterolemia, unspecified; F41.9 Anxiety disorder, unspecified; F32.A Depression, unspecified; M81.0 Age-related osteoporosis without current pathological fracture; Z90.49 Acquired absence of other specified parts of digestive tract; Z90.710 Acquired absence of both cervix and uterus; Z90.722 Acquired absence of ovaries, bilateral; Z90.79 Acquired absence of other genital organ(s); G47.33 Obstructive sleep apnea (adult) (pediatric)
CPT/HCPCS: G0105; J2704

== ENCOUNTER 2025-07-26 19:17 | Outpatient (REF) | payer MEDICARE, SELFPAY ==
--- OUTSIDE RECORDS SUMMARY | 2025-07-26 13:00 | XMS_ITS | Encounter Summary ---
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 Name Role Phone Ramon Andrew MD Primary Care Provider [phone] Reason for Visit * ReasonCommentsGynecologic Exam Encounter Details DateTypeDepartmentCare Team (Latest Contact Info)Qtrqvmqrljg65/03/2025 1:00 PM ESTProcedure Visit [facility] [address] [place] [id number] Elizabeth Crockett PA [address] [place], [place] [id number] Well woman exam with routine gynecological exam; Encounter for screening mammogram for malignant neoplasm of breast; Postmenopausal state Social History Tobacco UseTypesPacks/DayYears UsedDateSmoking Tobacco: NeverSmokeless Tobacco: Never Tobacco Cessation:Counseling Given: Not Answered CommentsNoSex and Gender InformationValueDate RecordedSex Assigned at BycahBqjgrn84/21/2023 7:59 PM EDTLegal JouOphcbo34/15/2023 7:03 PM EDTGender RqjtnnfmSgldmo23/21/2023 7:59 PM EDTSexual LbzytsefxfpYmuangtg82/21/2023 7:59 PM EDTdocumented as of this encounter Last Filed Vital Signs Vital SignReadingTime TakenCommentsBlood Picduckm711/7207/26/2025 1:06 PM EST Pulse--Temperature--Respiratory Rate--Oxygen Saturation--Inhaled Oxygen Concentration--Otlydl98.3 kg (210 lb)07/26/2025 1:06 PM ESTHeight--Body Mass Index33.8908 10:04 AM EDTdocumented in this encounter Progress Notes * TAHIR Madsen - 07/26/2025 1:00 PM EST Reason for Appointment: Patient ID: Marcie Neal is a 65 y.o. female who presents for Gynecologic Exam Patient presents today for Annual Exam. MEDICATIONS Current Outpatient Medications Medication Instructions atorvastatin (LIPITOR) 20 mg, Oral, Nightly citalopram (CELEXA) 20 mg, Oral, Every morning [...] file. Social History Tobacco Use Smoking status: Never Smokeless tobacco: Never Substance Use Topics Alcohol use: Not on file Drug use: Never FAMILY HISTORY Family History Problem Relation Name Age of Onset No Known Problems Mother Colon cancer Father Prince Garcia Cancer Father Prince Garcia No Known Problems Daughter No Known Problems Son SURGICAL HISTORY Past Surgical History: Procedure Laterality Date HYSTERECTOMY UVULOPALATOPHARYNGOPLASTY REVIEW OF SYSTEMS Review of Systems: Review of Systems Constitutional: Negative. HENT: Negative. Eyes: Negative. Respiratory: Negative. Cardiovascular: Negative. Gastrointestinal: Negative. Genitourinary: Negative. Musculoskeletal: Negative. Skin: Negative. Neurological: Negative. All other systems reviewed and are negative. Hematological: Negative. Endocrine: Negative. Allergic/Immunologic: Negative. OBJECTIVE Objective: Physical Exam Constitutional: Appearance: Normal appearance. She is well-developed. Genitourinary: Vulva normal. Cervix is absent. Uterus is absent. Breasts: Breasts are soft. Right: Normal. Left: Normal. Cardiovascular: Rate and Rhythm: Normal rate and regular rhythm. Pulmonary: Effort: Pulmonary effort is normal. Breath sounds: Normal breath sounds. Abdominal: General: Bowel sounds are normal. There [...] nursing note reviewed. Exam conducted with a paper roller present. Vitals: Estimated body mass index is 27.76 kg/m?? as calculated from the following: Height as of 04/14/24: 5' 6 . Weight as of 04/14/24: 172 lb. BP: No LMP recorded. Patient has had a hysterectomy. ASSESSMENT & PLAN ICD-10-CM 1. Well woman exam with routine gynecological exam Z01.419 THIN PREP TIS PAP AND HR HPV DNA CANCELED: THIN PREP TIS PAP AND HR HPV DNA 2. Encounter for screening mammogram for malignant neoplasm of breast Z12.31 Bilateral screening mammogram Bilateral screening mammogram 3. Postmenopausal state Z78.0 DEXA bone density Assessment/Plan Annual Exam: Patient presents today for an annual exam. Patient states she is doing well and has no complaints. Pap was obtained without difficulty. Orders Placed This Encounter Procedures Bilateral screening mammogram DEXA bone density Follow Up: Patient is to return in one year for annual unless needed otherwise. Documented by La Nena Santos CST on behalf of: TAHIR Madsen documented in this encounter Plan of Treatment NameTypePriorityAssociated DiagnosesOrder ScheduleBilateral screening mammogram ImagingRoutine Encounter for screening mammogram for malignant neoplasm of breast Expected: 07/26/2025, Expires: 09/26/2026DEXA bone densityImagingRoutine Postmenopausal state Expected: 07/26/2025 (Approximate), Expires: 07/26/2026THIN PREP TIS PAP AND HR HPV DNAPathology and CytologyRoutine Well woman exam with routine gynecological exam Ordered: 07/26/2025documented as of this encounter Visit Diagnoses Diagnosis Well woman exam with routine gynecological exam Routine gynecological examination Encounter for screening mammogram for malignant neoplasm of breast Postmenopausal state Asymptomatic postmenopausal status (age-related) (natural) documented in this encounter Care Teams Team MemberRelationshipSpecialtyStart DateEnd Date Ramon Andrew MD [address] [place] [id number] PCP - GeneralFamily Medicine02/12/23documented as of this encounter
--- OUTSIDE RECORDS SUMMARY | 2025-07-26 19:20 | XMS_ITS | CCD ---
Author Organization [facility] Care Team Providers Care Tenant Selector Name Role Phone MACI ., DR MENDOZA Primary Care Unavailable MACI Baptiste, DR MENDOZA Consulting Unavailable MACI Baptiste, DR MENDOZA Attending Unavailable MACI ., DR MENDOZA Admitting Unavailable WES, DR LASHA Stevens Consulting Unavailable SHANDA PHILIP Attending Unavailable Kelly Andrew MD Primary Care Provider [phone] Kelly Andrew MD Primary Care Provider [phone] Kelly Andrew MD Attending Provider [phone] Kelly Andrew Attending Unavailable Kelly Andrew Primary Care Unavailable Kelly Andrew Admitting Unavailable Kelly Andrew Primary Care Physician Dakota MARIE Attending Unavailable Kelly Andrew MD Primary Care Provider Allergies Allergy ClassificationReported Allergen(s)Allergy TypeDate of OnsetReaction(s) Facility (1 source)No Known Medication Allergies; Translations: [No Known Medication Allergies]Propensity to adverse reactions (disorder)[facility] Repository Medications Current Medications MedicationDrug Class(es)DatesSig (Normalized)Sig (Original)alendronic acid 70 mg oral tablet (1 source)BisphosphonateStart: 02-48-9164ibdv 1 tablet by mouth every week Alendronate 70 mg Tablet Active 70 MG PO every week March 09, 2018 12:00am Takes on Thursday morningALPRAZolam 0.25 mg oral tablet (1 source)BenzodiazepineStart: 75-77-3891Ubqrccotfi 0.25 mg Tablet Active 0.25 MG PO 2-3 TIMES PER DAY as needed for Anxiety March 09, 201812:00amascorbic acid 1000 mg oral tablet (1 source)Vitamin CStart: 37-47-3592chhg 1 g by mouth once dailyAscorbic Acid [...] mg oral tablet (11 sources)HMG-CoA Reductase InhibitorStart: 92-62-8999wcdx 1 tablet by mouth once dailyatorvastatin 20 mg Tab 20 mg = 1 tab(s), Oral, Daily, Refills(s) 0 Start Date: 05/17/25 Status: Ordered Repeat number: 1Start: 74-24-4540ptvr 1 tablet by mouth once daily in the eveningatorvastatin (Lipitor) 20 MG tablet Indications: Hyperlipidemia, unspecified hyperlipidemia type (CMS/HCC) TAKE 1 TABLET BY MOUTH EVERY DAY IN THE EVENING 90 tablet 02/29/2024 ActiveStart: 10-18-2023 End: 99-28-4739ydzy 1 tablet by mouth once daily in the eveningAtorvastatin 20 mg tablet Active 0 .ROUTE .COMPLEX 90 January 17, 2024 3:49pm TAKE ONE TABLET BY MOUTH EVERY EVENINGStart: 03-09-2018 End: 47-27-3588lydm 1 tablet by mouth at bedtimeAtorvastatin 20 mg tablet Discontinued 20 MG PO Bedtime March 09, 2018 12:00am October 1847:29pm biotin 10 mg oral capsule (1 source)Start: 76-21-0394mhua 1 capsule by mouth once dailyBiotin 10,000 mcg Capsule Active 55691 MCG PO Daily March 09, 2018 12:00amcalcium carbonate 1500 mg / cholecalciferol 0.01 mg oral tablet (1 source)Vitamin DStart: 13-53-2777mpda 1 tablet by mouth once dailyCalcium Carbonate-Vitamin D3 (Calcium 600 + D(3)) 600 mg(1,500mg) -400 unit Tablet Active 1 TAB PO Daily March 09, 2018 12:00amCalcium Citrate / Vitamin D (1 source)Start: 36-54-4371rfbcswm-vitamin D Refill(s) 0 Start Date: 06/13/25 Status: Ordered Repeat number: 1cholecalciferol 0.05 mg oral capsule (1 source)Vitamin DStart: 42-61-1990kzqn 1 capsule by mouth once daily Cholecalciferol (Vitamin D3) (Vitamin D3) 2,000 unit Capsule Active 2000 UNIT PO Daily March 09, 2018 12:00amcitalopram 20 mg oral tablet (10 sources)Serotonin Reuptake InhibitorStart: 03-09-2018 End: 53-57-4384yhyf 1 tablet by mouth in the morningcitalopram (CeleXA) 20 MG tablet Indications: Anxiety, generalized Take 1 tablet (20 mg) by mouth in the morning. 90 tablet 2 10/14/2024 07/11/2025 ActiveStart: 31-61-9224ewrx 1 tablet by mouth once dailyCitalopram 10 mg tablet Active 10 MG PO Daily March 09, 2018 12:00am1 ml denosumab 60 mg/ml prefilled syringe (1 source)RANK Ligand InhibitorStart: 84-14-6235Lesmst 60 mg/mL subcutaneous solution 60 mg, SubCutaneous, q6mo, Refills(s) 0 Start Date: 05/17/25 Status: Ordered Repeat number: 1melatonin 5 mg oral tablet (1 source)Start: 62-21-2604dnek 1 tablet by mouth once daily at bedtime as neededmelatonin 5 mg oral tablet 5 mg = 1 tab(s), Oral, Once a day (at bedtime), PRN for insomnia, Refills(s) 0 Start Date: 05/17/25 Status: Ordered Repeat number: 1Multi Vitamins oral tablet (1 source)Start: 66-37-4827ynte 1 tablet by mouth once dailyMulti Vitamins oral tablet 1 tab(s), Oral, Daily, Refill(s) 0 Start Date: 05/17/25 Status: Ordered Re peat number: 1Multivitamin (Multiple Vitamins) Tablet (1 source)Start: 74-85-6136vxqd 1 tablet by mouth once daily in the morning Multivitamin (Multiple Vitamins) Tablet Active 1 TAB PO Every morning March 09, 2018 12:00am Completed/Discontinued Medications MedicationDrug Class(es)DatesSig (Normalized)Sig (Original)[place]-3 Fatty Acids- Fish Oil (1 source)Start: 03-09-2018 End: 35-79-9950fsmy 1 capsule by mouth once dailyOmega-3 Fatty Acids-Fish Oil (Fish Oil) 300-1,000 mg Capsule Discontinued 1 CAP PO Daily February 12:00am March 12, 2018 9:28am Problems Active Problems Problem ClassificationProblemDateDocumented DateEpisodic/ChronicAnxiety disorders (1 source)Chzevlu43-55-0676TquuwbqWnosmxyei of lipid metabolism (1 source)Ujfxyvsafqsemiqsezrn89-79-1450JwoxiyjUrhw disorders (1 source)Major depressive oavogbcl51-32-2206OtygdyqFpcfsjrrppet (1 source)Mjuurdfizbmq12-97-0828FkcbsjvLhobk nutritional; endocrine; and metabolic disorders (1 source)Body mass index 30+ - ewhnvxp48-71-0374QmsisnmWbebt nutritional; endocrine; and metabolic disorders (1 source)Obesity caused by energy eoyagamkt01-60-2316RzaqhzyJxkss screening for suspected conditions (not mental disorders or infectious disease) (7 sources)Encounter for screening mammogram for malignant neoplasm of breast; Translations: [Patient encounter status]Onset: 60-60-4700XauuxpnwYpklrofu codes; unclassified (1 source)Sleep ibkds55-70-7436DvccvivZbmwngts codes; unclassified (1 source)Family history of malignant neoplasm of digestive organs; Translations: [FAM HX MALIG NEOPLASM DIGESTIV ORGN]Onset: 48-41-1848Kvmmotml Residual codes; unclassified (1 source)Family history of malignant neoplasm of digestive organ; Translations: [Family history of malignantneoplasm of digestive organs]Onset: 06-13-2025 EpisodicResidual codes; unclassified (1 source)Family history of cancer of whehk33-47-0765Qtgnoikb Past or Other Problems Problem ClassificationProblemDateDocumented DateEpisodic/ChronicResidual codes; unclassified (2 sources)Postmenopausal state; Translations: [Asymptomatic menopausal state] 06-55-9967Pgdrtgbs Results Test NameValueInterpretationReference RangeFacilityCCF CALCIUMon 06-30-2025 Calcium [Mass/Vol]9.2 mg/dL8.5 - 10.1 mg/dLSainte Genevieve County Memorial HospitalNo Panel Informationon 68-80-5442FYGXPKITSXOOC HealthcareTB CREATININEon 86-85-8246Fnnmvmvmpt [Mass/Vol]0.74 mg/dL0.55 - 1.02 mg/dLSainte Genevieve County Memorial HospitalGFR/1.73 sq M.predicted CKD- EPI (S/P/Bld) [Vol rate/Area]>60>=60 mL/min/1.73m 2NLafayette Regional Health CenterTB EGFR-NON AF NIUEAN>60>=60 mL/min/1.73m 2NST. [facility] HealthcareAmbulatory Visit Summaryon 73-14-4657Slfpyxxtgb Visit SummaryAmbulatory Visit Summary MARCIE NEAL :1960 [...] signed up for this yet, please contact [employer] at [phone] to get signed up today. Language Information Language assistance services are available as needed. [facility] HospitalMM special view LT w/CADon 19-71-0220QZ special view LT w/CADCLEVELAND [facility] [address] [place] [address] Mammography Report Signed Patient: Marcie Neal MR#: [id number] : 1960 Acct:[id number] Age/Sex: 64 / F Adm Date: 01/24/25 Loc: [place] Room: Type: [facility] Attending Dr: Kelly Andrew MD Ordering Provider: Kelly Andrew MD Date of Service: 01/24/25 Procedure(s): MM special view LT w/CAD Accession Number(s): ([id number]) MM/MM special view LT w/CAD: R92.8 Copies [...] Garcia M.D. 01/24/2025 2:21 PM Dictation Location: [facility] Dictated By: Blas Garcia II, MD 01/24/25 1357 Signed By: 01/24/[address] [place] [address] Physician GroupMammography reportOrdered By: Blas Garcia on 62-03-0254Upbmuyvpkk imaging [facility] [address] [place] [address] Mammography Report Signed Patient: Marcie Neal MR#: [id number] : 1960 Acct:[id number] Age/Sex: 64 / F Adm Date: 5 Loc: [place] Room: Type: [facility] Attending Dr: Kelly Andrew MD Ordering Provider: Kelly Andrew MD Date of Service: 01/24/25 Procedure(s): MM special view LT w/CAD Accession Number(s): ([id number]) MM/MM special view LT w/CAD: R92.8 Copies [...] Garcia M.D. 01/24/2025 2:21 PM Dictation Location: [facility] Dictated By: Blas Garcia II, MD 01/24/25 1352 Signed By: 01/24/25 [address] [facility] Work Phone: CCL CALCIUMon 68-10-3490Liqyfpe [Mass/Vol]8.7 mg/dL8.5 - 10.1 mg/dLNOCT HealthcareNo Panel Informationon 52-78-3616NRZULCXEYAKVB HealthcareTBH CREATININEon 17-35-5658Rdmtzdmscj [Mass/Vol]0.92 mg/dL0.55 - 1.02 mg/dLNOCT HealthcareGFR/1.73 sq M.predicted CKD-EPI (S/P/Bld) [Vol rate/Area]>60 >=60 mL/min/1.73m 2NOMS HealthcareTB EGFR-NON AF NIUEAN>60>=60 mL/min/1.73m 2 NOMS HealthcareCCF CALCIUMon 92-71-4787Zdjbgzw [Mass/Vol]9.2 mg/dL8.5 - 10.1 mg/dLNOCT HealthcareNo Panel Informationon 61-21-4445VWTJLJHAFAFXP HealthcareTB CREATININEon 98-43-4486Wvsynguhhk [Mass/Vol]1.01 mg/dL0.55 - 1.02 mg/dLNOCT HealthcareGFR/1.73 sq M.predicted CKD-EPI (S/P/Bld) [Vol rate/Area]>60>=60 mL/min/1.73m 2NOMS HealthcareInterpretation and review of laboratory results AbnormalNOCedar County Memorial Hospital EGFR-NON AF RRMGFJPC67Rww>=60 mL/min/1.73m 2NOMS HealthcareXR DEXA AXIAL SKELETONon 30-43-7214[address] [address] XRay Report Signed Patient: MARCIE NEAL MR#: [id number] : 1960 Acct:[id number] Age/Sex: 64 / F ADM Date: 04/22/24 Loc: RAD Attending Dr: Shanda Philip D.O. Ordering Physician: Shanda Philip D.O. Date of Service: 04/22/24 Procedure(s): XR DEXA axial skeleton Accession Number(s): [id number] cc: Shanda Philip D.O.; Kelly Andrew M.D. [address] [address] Patient Name: MARCIE NEAL MRN: [facility]:[id number] date: 1960 Sex: F Assigned Patient Location: [facility] Current Patient Location: Accession/Order Number: [id number] Exam Date: 04/22/2024 07:55 Report Date: 04/26/2024 [...] prevention and treatment of osteoporosis. Osteoporos Int. 2021;33(10):9059-5270. doi: 10.1007/z28560-348-64438-t. Epub 2021Dec 19. Erratum in: Osteoporos Int. 2021Mar 20;: PMID: 65286850; PMCID: YDH6129325. Electronically authenticated by: LASHA HERNANDEZ Date: 04/26/2024 04:25 Dictated By: Lasha Hernandez M.D. Signed By: 04/26/24427 DD/ 4 TD/TT: Faculty I On Call Medical Assistant:TBHRadiology, Radiologist, - 04/26/[address] [address] XRay Report Signed Patient: MARCIE NEAL MR#: [id number] : 1960 Acct:[id number] Age/Sex: 64 / F ADM Date: 04/22/24 Loc: RAD Attending Dr: Shanda Philip D.O. Ordering Physician: Shanda Philip D.O. Date of Service: 04/22/24 Procedure(s): XR DEXA axial skeleton Accession Number(s): [id number] cc: Shanda Philip D.O.; Kelly Andrew M.D. [place] [address] Patient Name: MARCIE NEAL MRN: [facility]:[id number] date: 1960 Sex: F Assigned Patient Location: [facility] Current Patient Location: Accession/Order Number: [id number] Exam Date: 04/22/2024 07:55 Report Date: 04/26/2024 [...] prevention and treatment of osteoporosis. Osteoporos Int. 2021;33(10):1242-0130. doi: 10.1007/l31803-736-36072-g. Epub 2021Dec 19. Erratum in: Osteoporos Int. 2021Mar 20;: PMID: 13440375; PMCID: UAS8398362. Electronically authenticated by: LASHA HERNANDEZ Date: 04/26/2024 04:25 Dictated By: Lasha Hernandez M.D. Signed By: 04/26/24427 DD/ 4 TD/TT: Faculty I On Call Medical Assistant: [facility] HealthcareRadiology Study observation (narrative)[facility] HospitalXR DEXA AXIAL SKELETONOrdered By: Radiologist Radiology on 43-63-7961CCBK Healthcare Work Phone: IGP,APTIMA HPV,AGE GDLNon 03-98-6348OSI GDLN ACOG TESTINGNote.[facility] HealthcareComment on above:TESTS RESULT FLAG UNITS REF RANGE LAB Clinician Provided Cytology Information Source.............Vagina No. of containers..01 ThinPrep Vial Age Algo ACOG Nathalie... 30-65 01 FLAG LEGEND: L-Low Normal,H-High Normal,LL-Alert Low,HH-Alert High <-Panic Low,>-Panic High,A-Abnormal,AA-Critical Abnormal Performed at: 01 =[address] [address] Fela Avendano MD, HPV APTIMANegativeNegativeNOMS HealthcareComment on above:This nucleic acid amplification test detects fourteen high- risk HPV types (16,18,31,33,35,39,45,51,52,56,58,59,66,68) without differentiation. Performed at: =[facility] [id number] Professor Of Management: Fela Avendano MD, Phone: [phone] Performed at: [address] [id number] Professor Of Management: Fela Avendano MD, Phone: [phone] IGP, APTIMA HPV, RFX 16/18,45Note.NOMS HealthcareComment on above:TESTS RESULT FLAG UNITS REF RANGE LAB DIAGNOSIS: 02 NEGATIVE FOR INTRAEPITHELIAL LESION OR MALIGNANCY. Specimen adequacy: 02 Satisfactory for evaluation. Performed by: Teodoro Leach, Development Eng (ASC) . 02 Note: Note 02 The [...] <-Panic Low,>-Panic High,A-Abnormal,AA-Critical Abnormal Performed at: [address] [address] Fela Avendano MD, SPATULA-ALONE [facility] MAMM SCREEN 3D KAE CADon 73-39-7766FH MAMM SCREEN 3D KAE CADPatient: MARCIE NEAL Exam Date: 12/26/2022 : 1960 Gender:F Ordering : DR KELLY ANDREW . Admission #: [id number] Family : Order #: [id number] CLICK HERE TO VIEW EXAM RADIOLOGY REPORT [...] cancer at age 47. LOCATION: [facility] BREAST COMPOSITION: Scattered areas fibroglandular density. [...] by: Lasha Hernandez M.D. on 12/29/2022 at 11:50[facility] Vital Signs Date TimeVital SignValuePerforming EputunzflSxqnfdlj57-94-4736 10:04-0400Body gmotxn403.6 cmCorey Cedrick DO Work Phone: [facility] HospitalZrghkmwejf05-99-1847 10:04-0400Body mass index (BMI) [Ratio]27.76 kg/j2Qfedn Cedrick DO Work Phone: [place] [address]Awppweqwus58-20-5395 10:04-0400Body tgoyuk52.02 kgCorey Cedrick DO Work Phone: [place] [address]Pdthkwfgww02-54-2146 10:04-0400Diastolic blood fblcxkiy75 mm[Hg]Shanda Cedrick DO Work Phone: [place] [phone] 10:04-0400Systolic blood hjuoexyg426 mm[Hg]Shanda Cedrick DO Work Phone: noCT Healthcare Encounters Encounter DateEncounter TypeCare ProviderFacilityStart: 06-30-2025 End: 08-16-5929Aaaiqrohe Result EncounterCorey Cedrick DO Work Phone: noms External Department UnsolicitedStart: 06-30-2025 End: 71-63-2941Vckfnghdu Result EncounterCorey Cedrick DO Work Phone: noms External Department UnsolicitedStart: 06-13-2025 End: 39-87-0620clgdminfhcJmsjoyy R NILLFacility: MichelleevueStart: 06-13-2025 End: 69-03-6107Wemoojp encounter procedureMichael R NILL [phone]-KjhbwFayette County Memorial Hospital General Surgery [place] Start: 90-86-2126ygrnwxuoxqMfogbpd NILLFacility:MARTÍN BellevueStart: 01-24-2025 End: 13-88-2159Irwktig encounter procedureKelly Andrew MD Work Phone: [facility] Work Phone: Start: 01-24-2025 End: 87-85-6524fwtkawgaozHdsmclc M Hoy MD Work Phone: [facility] Work Phone: Start: 12-05-2024 End: 03-16-6229Cxkquiwjf Result EncounterCorey Cedrick DO Work Phone: noms External Department UnsolicitedStart: 12-05-2024 End: 92-28-4850Lyjyimtef Result EncounterCorey Cedrick DO Work Phone: noms External Department UnsolicitedStart: 06-01-2024 End: 11-53-8829Biohouyst Result EncounterCorey Cedrick DO Work Phone: noms External Department UnsolicitedStart: 06-01-2024 End: 51-48-7287Prsxrawcd Result EncounterCorey Cedrick DO Work Phone: noms External Department UnsolicitedStart: 04-26-2024 End: 12-03-6981Uupcabhsc Result EncounterCorey Cedrick DO Work Phone: noms External Department UnsolicitedStart: 04-26-2024 End: 55-69-1155Wguuzaten Result EncounterCorey Cedrick DO Work Phone: noms External Department UnsolicitedStart: 04-14-2024 End: 93-20-1291Fmzxhc flowsheetCorey Cedrick DO Work Phone: noms BCP OBStart: 04-14-2024 End: 16-38-7261Xvnncg flowsheetCorey Cedrikc DO Work Phone: noms BCP OBStart: 04-14-2024 End: 87-09-6066Wztgetids Result EncounterCorey Cedrick DO Work Phone: noms External Department UnsolicitedStart: 04-14-2024 End: 90-26-5537Ilbkhwz encounter procedureCorey Cedrick DO Work Phone: NOBH HealthcareStart: 04-14-2024 End: 51-51-2415Vbnjtyuz preventive med est patient 65yrs& olderCorey Cedrick DO Work Phone: [facility] OBComment on above:Well woman exam with routine gynecological exam; Postmenopausal state; Breast cancer screening by mammogramStart: 04-14-2024 End: 25-84-7187ejsyxsrtqvXLKOZ FAZIONot AvailableStart: 12-26-2022 End: 68-14-6982vszguiwmdaNM KELLY ANDREW .Facility: Procedures DateProcedureProcedure DetailPerforming ClinicianStart: 02-06-0808HMH CALCIUM Shanda Cedrick DO Work Phone: Start: 47-38-5863KFC CREATININECorey Cedrick DO Work Phone: Start: 67-42-6070Dejrqhtcyvr of left breastDougchidi Andrew MD Work Phone: Start: 16-34-8254HGE CALCIUMCorey Cedrick DO Work Phone: Start: 93-76-6518JZT CREATININECorey Cedrick DO Work Phone: Start: 87-92-8602LRJ CALCIUMCorey Cedrick DO Work Phone: Start: 85-26-6396XJR CREATININECorey Cedrick DO Work Phone: Start: 69-45-1027UY DEXA AXIAL SKELETONCorey Cedrick DO Work Phone: Start: 95-06-3669HVY,APTIMA HPV,AGE GDLNCorey Cedrick DO Work Phone: Start: 62-26-1966WhculagxcvbWhlrhll NILL AppendectomyMichael NILL ColonoscopyMichael NILL History of nasal sinus surgeryMichael NILL Total abdominal hysterectomy with bilateral salpingo-oophorectomyMichael NILL Plan of Treatment DateCare ActivityDetailAuthorStart: 07-26-2025 End: 71-56-9512Zlvszci encounter qhogsfcli13/03/2025 1:00 PM EST Procedure Visit [facility] [address] [place] [phone] Elizabeth Crockett PA [address] [place] [address] DARWIN Pineda OBGYNStart: 04-14-2024 End: 82-03-5240GIG Skeletal system Views for bone densityDEXA bone density Imaging Routine Postmenopausal state Expected: 04/14/2024 (Approximate), Expires:04/14/2025NOCT Healthcare Work Phone: comment on above:Expected: 04/14/2024 (Approximate), Expires: 04/14/2025Start: 04-14-2024 End: 80-63-4228Yjxgwnv encounter eszxgsfuj50/22/2024 10:00 AM EDT Office Visit [facility] [address] [place] [phone] Shanda Philip DO [address] [place] [address] ArrivedNOMS BCP OBComment on above:ArrivedTHIN PREP TIS PAP AND HR HPV DNATHIN PREP TIS PAP AND HR HPV DNA Pathology and Cytology Routine Well woman exam with routine gynecological exam Ordered: 04/14/2024NOCT HealthcareComment on above:Ordered: 04/14/2024 Immunizations Immunization DateImmunizationNotesCare CqxfwrrnRjcdvmeo72-39-1202UUKO-PwJ-6 (COVID-19) mRNA BNT-162b2 vaxMichael NILL [phone]-MxxjnFayette County Memorial Hospital General Surgery [place] 03-24-9476YTJK-CoV-2 (COVID-19) mRNA BNT-162b2 vaxMichael NILL [phone]-DcxrwBluffton Hospital Surgery [place] 68-25-4737nkvscthal virus vaccine, unspecified formulationKelly Andrew MD Work Phone: [facility] Payers DatePayer CategoryPayerPolicy ID2025Medicare [id number] (Managed Care)[facility] [id number] HEALTH [facility] [id number] 2024-Present [address] [place] [address] [id number] [id number] 2.0.1.735084.3.57[id number] 2.0.1.484960.3.57[id number] 2.0.1.96[id number] 2.0.1.864454.3.579.2.531 Social History DateTypeDetailFacilityTobacco smoking status NHISTobacco smoking consumption unknownVALLEY VIEW MEDICAL [facility]ENTER HealthcareStart: 74-57-0885Wck assigned at [facility] HealthcareStart: 98-14-8346Atbcfg identityIdentifies as female gender (finding) [facility] HealthcareStart: 16-06-3020Jbzdnv orientationHeterosexual (finding)[facility] HealthcareStart: 04-22-2017 End: 04-60-6302Ekczlxo smoking status NHISNever smoked tobacco (finding) [facility]2018 End: 39-25-8838RwvOrsmbx (finding)[facility]: 88-45-9670Gdibtxk smoking statusNeverBluffton Hospital Surgery [facility] Ohioexual OrientationBluffton Hospital Surgery [place] Sex Assigned At [facility] Clinical Note 06-13-2025 Note Date & LqwuUmayCbqbrduj59-93-6196 NoteGeneral Surgery Office/Clinic Note Chief Complaint consultation [...] Recorded SARS-CoV-2 (COVID-19) mRNA BNT-162b2 vax 11/09/2020 RecordedAkron Children'S HospitalComment on above:Result Comment: Electronically Signed By: CYNTHIA ORELLANA, Dakota Mejia\Date and Time Signed: 06/13/25 13:32 EDT History of Present illness Narrative 04-14-2024 Note Date & TcehFnyuKtzhpyvp77-78-4032 History of Present illness Narrative* Ilene Alicea, STRIPPER CUTTER MACHINE - 04/14/2024 10:00 AM EDT Reason for [...] nursing note reviewed. Exam conducted with a grant coordinator present. Vitals: Estimated body mass index [...] Ilene Alicea LPN on behalf of: Shanda Philpi DO documented in this encounterNOMS Healthcare Evaluation + Plan note Note Date & TypeNoteFacilityEvaluation + Plan note No data available for this section [facility] Evaluation note Note Date & TypeNoteFacilityEvaluation note* Diagnosis Well woman exam with routine gynecological exam Routine gynecological examination Postmenopausal state Asymptomatic postmenopausal status (age-related) (natural) Breast cancer screening by mammogram documented in this encounter [facility] Evaluation note Note Date & TypeNoteFacilityEvaluation noteNo assessment information available [facility] Work Phone: Hospital Discharge instructions Note Date & TypeNoteFacilityHospital Discharge instructions No data available for this section [facility] [place] Progress note Note Date & TypeNoteFacilityProgress note No data available for this section [facility] [place] Summary Purpose Family History Relationship Condition Age [...] and content) DATE CREATED AUTHOR 01/01/2023 [facility] DATE CREATED AUTHOR AUTHOR'S ORGANIZ ATION 04/16/2024 [facility] DATE CREATED AUTHOR AUTHOR'S ORGANIZ ATION 03/14/2025 [facility] DATE CREATED AUTHOR AUTHOR'S ORGANIZ ATION 06/15/2025 [facility] Care Teams (unrecognized sec tion and content) Team MemberRelationshipSpecialtyStart DateEnd Date Kelly Andrew MD [address] [place] [address] PCP - Generalmi Medicine02/12/23Team MemberRelationshipSpecialtyStart DateEnd Date Kelly Andrew MD [address] [place] [address] PCP - GeneralSh[facility] Medicine02/12/23Team MemberRelationshipSpecialtyStart DateEnd Date Kelly Andrew MD [address] [place] [address] PCP - GeneralFami Medicine02/12/23 Team Status: Active Member Role Status Dates Kelly Andrew MD Primary Care Provider Active Team Status: Inactive Member Role Status Dates Kelly Andrew MD Primary Care Provide r, Attending Provider Active Start: January 24, 2025 End: January 24, 2025Team MemberRelationshipSpecialtyStart DateEnd Date Kelly Andrew MD PCP - General acute hospital Medicine02/12/23Team MemberRelationshipSpecialtyStart DateEnd Date Kelly Andrew MD PCP - GeneralFabaystate franklin medical center Medicine02/12/23 Reason for Visit (unrecogniz ed section [...] BE BASED ON THE PRIMARY CLINICAL RECORDS. [employer] [facility]. provides no warranty or guarantee of the accuracy or completeness of information in this document.
--- OUTSIDE RECORDS SUMMARY | 2025-07-26 19:22 | XMS_ITS | Clinical Summary ---
Author Organization [facility] Address [address] [facility] [place] [address] Care Team Providers Care Wire Rope Sling Maker Name Role Phone Ramon Andrew MD Primary Care Provider [phone] Allergies No known active allergies Medications MedicationSigDispense QuantityRefillsLast FilledStart DateEnd DateStatus Pediatric Multivitamins-Fl (MultiVitamin + Fluoride) 0.25 MG chewable tablet MultivitaminActive atorvastatin (Lipitor) 20 MG tablet Indications:Hyperlipidemia, unspecified hyperlipidemia typeTAKE 1 TABLET BY MOUTH EVERY EVENING 90 tablet 5Active citalopram (CeleXA) 20 MG tablet Indications:Anxiety, generalizedTAKE 1 TABLET BY MOUTH IN THE MORNING 90 tablet 5Active atorvastatin (Lipitor) 20 MG tablet Indications:Hyperlipidemia, unspecified hyperlipidemia typeTAKE 1 TABLET BY MOUTH EVERY DAY IN THE EVENING 90 tablet Discontinued citalopram (CeleXA) 20 MG tablet Indications:Anxiety, generalizedTake 1 tablet (20 mg) by mouth in the morning. 90 tablet Discontinued Encounters DateTypeDepartmentCare OzktXmujwwllctz05/03/2025 1:00 PM ESTProcedure Visit [facility] [address] [place] [address] [place] [id number] Elizabeth Crockett PA Well woman exam with routine gynecological exam; Encounter for screening mammogram for malignant neoplasm of breast; Postmenopausal state07/26/2025amboo flowsheet [facility] [address] [place] [address] Elizabeth Crockett PA 07/20/20250720Rjjmqp79/18/2025Refill [facility] [address] [place] [address] [place] Philip, Hyperlipidemia, unspecified hyperlipidemia type; Anxiety, bmnlfyvhmeg33/07/2025linisync Result Encounter [facility] Unsolicited [place] Philip DO 06/13/2025Telephone [facility] [address] [place] [address] Ilene Alicea LPN from Last 3 Months Family History Medical HistoryRelationNameCommentsNo Known ProblemsDaughterCancerFatherDavid BergerColon cancerFatherDavid BergerNo Known ProblemsMotherNo Known ProblemsSon RelationNameStatusCommentsDaughterAliveFatherDavid BergerDeceasedMotherDeceased SonAlive Social History Tobacco UseTypesPacks/DayYears UsedDateSmoking Tobacco: NeverSmokeless Tobacco: Never Tobacco Cessation:Counseling Given: Not Answered CommentsNoSex and Gender InformationValueDate RecordedSex Assigned at EewbaDxwiix16/21/2023 7:59 PM EDTLegal IbzNobnjy53/15/2023 7:03 PM EDTGender QzfvttymPahoey10/21/2023 7:59 PM EDTSexual AbbsborqttiScawcrsp89/21/2023 7:59 PM EDT Last Filed Vital Signs Vital SignReadingTime TakenCommentsBlood Xrhuliqy579/7207/26/2025 1:06 PM EST Pulse--Temperature--Respiratory Rate--Oxygen Saturation--Inhaled Oxygen Concentration--Afygra69.3 kg (210 lb)07/26/2025 1:06 PM BIPNcnjur369.6 cm (5' 6 )04/14/2024 10:04 AM EDTBody Mass Index33.8904/14/2024 10:04 AM EDT Plan of Treatment Health MaintenanceDue DateLast DoneCommentsCT Hoikbejagvwo1959FIT-DNA 1960FIT1960FOBT1960 6427Koeyqgvhpujaa46/08/5912Azfkrlcox52/08/1999 Pneumococcal Vaccine: 65+ Years (1 of 1 - PCV)2009COVID-19 Vaccine (3 - 2024- season)504/04/2021, 11/09/2020Influenza Vaccine (#1)2025 07/28/2020, 05/27/20190394Ryxcapffgib00Colorectal Cancer Screening 11/10/2028Cervical Cancer ScreeningDiscontinuedPap WbzleWiubsabuiqwu60/22/2024 HPV/CotestDiscontinued Procedures Procedure NamePriorityDate/TimeAssociated DiagnosisCommentsCCF CALCIUMRoutine 06/30/2025 7:29 AM EST [facility] WRAVSIGEMRNchwquc03/07/2025 7:29 AM EST PAP XAKNCOsowbov53/22/2024 12:00 AM EDTfrom Last 3 Months or Most Recently Relevant to Health Maintenance Results * [facility] CREATININE (06/30/2025 7:29 AM EST)ComponentValueRef RangeTest Method Analysis TimePerformed AtPathologist SignatureCREATININE0.740.55 - 1.02 mg/dL TBHTBH EGFR-AF THAI>60>=60 mL/min/1.73m 2TBHTBH EGFR-NON AF THAI>60 >=60 mL/min/1.73m 2TBHSpecimen (Source)Anatomical Location / Laterality Collection Method / VolumeCollection TimeReceived Time06/30/2025 7:29 AM EST 06/30/2025 7:30 AM EST Narrative CLINISYNC - 06/30/2025 8:10 AM EST Authorizing ProviderResult TypeResult StatusCorey Cedrick DOCLINISYNCFinal Result Performing OrganizationAddressCity/State/ZIP CodePhone Number CLINISYNC [facility] * [facility] CALCIUM (06/30/2025 7:29 AM EST)ComponentValueRef RangeTest MethodAnalysis TimePerformed AtPathologist SignatureCALCIUM9.28.5 - 10.1 mg/dLTBHSpecimen (Source)Anatomical Location / LateralityCollection Method / VolumeCollection TimeReceived Time06/30/2025 7:29 AM EST06/30/2025 7:30 AM EST Narrative CLINISYNC - 06/30/2025 8:10 AM EST Authorizing ProviderResult TypeResult StatusCorey Cedrick DOCLINISYNCFinal Result Performing OrganizationAddressCity/State/ZIP CodePhone Number CLINISYNC [facility] * Pap Smear (04/14/2024 12:00 AM EDT)Specimen (Source)Anatomical Location / LateralityCollection Method / VolumeCollection TimeReceived TimeSwabCervical swab / Unknown Narrative Authorizing ProviderResult TypeResult StatusCorey Cedrick DOLAB CYTOLOGY ORDERABLESFinal ResultPerforming OrganizationAddressCity/State/ZIP CodePhone Number EXTERNAL LAB from Last 3 Months or Most Recently Relevant to Health Maintenance Insurance Care Teams Team MemberRelationshipSpecialtyStart DateEnd Ramon Andrew MD [address] [place] [phone] [facility]/12/23
--- OUTSIDE RECORDS SUMMARY | 2025-07-26 19:22 | XMS_ITS | Patient Health Record ---
Author Organization [facility] in [place] Address [address] [place] [address] Care Team Providers Care Cnc Maintenance Mechanic Name Role Phone Ryder Lux Primary Care Provider [phone] Allergies No Known Allergies Results Component Value Reference Range Notes CALCIUM Reviewed date:12/05/2024 08:37:54 PM Interpretation: Performing Lab: Notes/Report: [facility] , Calcium 8.7 8.5-10.1 mg/dL Performing Lab:see note - [facility] LBCREATININE Reviewed date:12/05/2024 08:37:54 PM Interpretation: Performing Lab: Notes/Report: [facility] ,Creatinine0.920.55-1.02 mg/dLEstimated GFR ( Radha>60>=60 mL/min/1.73m 2Estimated GFR (Non- Afia>60>=60 mL/min/1.73m 2Performing Lab:see note - [facility] LBMM tomosynthesis screening BI Reviewed date:01/02/2025 08:51:57 PM Interpretation: Performing Lab: Notes/Report: Source Facility: [facility]-[address] [place] [address] [place] [address] Mammography Report Signed Patient: MARCIE NEAL MR#: [id number] : 1960 Acct:[id number] Age/Sex: 64 / F ADM Date: 01/02/25 Loc: MAMMO Attending Dr: Kelly Lux M.D. Ordering Physician: Kelly Lux M.D. Results: Date of Service: 01/02/25 Follow Up: Procedure(s): MM tomosynthesis screening BI Accession Number(s): [id number] cc: Kelly Lux M.D. Patient Name: MARCIE NEAL MR#: [id number] : 1960 Exam Date: 01/02/2025 Ordering Doctor: [...] at age 47. LOCATION: [facility] BREAST COMPOSITION: There are scattered areas of [...] Signed By: 01/02/25 1542 DD/ 1541 TD/TT: Brake Lining Driller:PAVAN T3 Reviewed date:05/09/2025 05:26:58 PM Interpretation: Performing Lab: Notes/Report: [facility] Pavan T32.142.18-3.98 pg/mLPerforming Lab:see noteML - [facility] LB GLYCOHEMOGLOBIN A1C Reviewed date:05/09/2025 05:26:58 PM Interpretation: Performing Lab: Notes/Report: [facility] ,Glycohemoglobin A1C6.14.5-6.2 % ADA RECOMMENDED LIMIT 4.0 - 6.0 ADA THERAPEUTIC TARGET < 7.0 ACTION SUGGESTED > 7.0 Estimated Average Pworqhy769Jkllzzubzl Lab:see noteML - [facility] LB IRON Reviewed date:05/09/2025 05:26:58 PM Interpretation: Performing Lab: Notes/Report: [facility] ,Iron94.050.0-170.0 ug/dLPerforming Lab:see noteML - [facility] LB LIPID PROFILE Reviewed date:05/09/2025 05:26:58 PM Interpretation: Performing Lab: Notes/Report: [facility] ,Jwrcrnxydxith222<=150 mg/tDKqgywcxoall896<=200 mg/dLHDL Eghyxjciiju9275-05 mg/dL > or =60 mg/dl - LOW CARDIOVASCULAR RISK <40 mg/dl - HIGH CARDIOVASCULAR RISK LDL Cholesterol Eizcypqipg01.0 <100 mg/dl OPTIMAL 100-129 mg/dl NEAR OR ABOVE OPTIMAL 130-159 mg/dl BORDERLINE HIGH 160-189 mg/dl HIGH >190 mg/dl VERY HIGH VLDL OLGPTDZSPJP99.4Chol HDL Ratio3.5 3.3 - 4.4 LOW RISK 4.4 - 7.1 AVERAGE RISK 7.1 - 11.0 MODERATE RISK >11.0 HIGH RISK Performing Lab:see noteML - [facility] LBPROF 14(COMP METB) Reviewed date:05/09/2025 05:26:58 PM Interpretation: Performing Lab: Notes/Report: [facility] ,Mfquom379215-094 mmol/LPotassium4.53.5-5.1 mmol/JXfrgaldk19552-871 mmol/LCarbon Ksnsiii51.921.0-32.0 mmol/LAnion Gap13.1Ivphvre36035-303 mg/dLBlood Urea Dqgdebrb84.07.0-18.0 mg/dLCreatinine0.790.55-1.02 mg/dLEstimated GFR ( Radha>60>=60 mL/min/1.73m 2Estimated GFR (Non- Afia>60>=60 mL/min/1.73m 2BUN Creatinine Ratio19.8Hdludxc5.18.5-10.1 mg/dLBilirubin Total0.60.2-1.0 mg/dL Aspartate Amino Qfepmwhkzge9981-86 U/LAlanine Pvjuuotyyuhvwoel0873-43 U/L Alkaline Tyloilesoih0183-557 U/LTotal Protein7.96.4-8.2 g/dLAlbumin Level4.13.4- 5.0 g/dLGlobulin3.8Albumin Globulin Ratio1.1Performing Lab:see noteML - [facility] LBT4 Reviewed date:05/09/2025 05:26:58 PM Interpretation: Performing Lab: Notes/Report: [facility] ,T4 Thyroxine6.304.80-13.90 ug/dLPerforming Lab:see noteML - [facility] LBTSH Reviewed date:05/09/2025 05:26:58 PM Interpretation: Performing Lab: Notes/Report: [facility] ,Thyroid Stimulating Hormone1.3010.358-3.740 uIU/mLPerforming Lab:see noteML - [facility] LBCBC AUTO DIFF Reviewed date:05/09/2025 05:26:58 PM Interpretation: Performing Lab: Notes/Report: [facility] ,White Blood Count5.94.0-11.0 10 3/uLRed Blood Count4.574.20-5.40 10 6/uL Gncsarlhet82.112.0-16.0 g/yEFtfedccgny26.836.0-48.0 %Mean Corpuscular Uouera21.5 81.0-99.0 fLMean Corpuscular Mdzkyjaxrc58.926.7-34.0 pgMean Corpuscular HGB Conc 33.729.9-35.2 g/dLRed Cell Distribution Width12.811.0-15.0 %Platelet Xidrm411 150-450 10 3/uLMean Platelet Volume8.79.5-13.5 fLNeutrophils Percent Auto57.3 43.0-75.0 %Lymphocytes Percent Auto29.020.5-60.0 %Monocytes Percent Auto8.91.7- 12.0 %Eosinophils Percent Auto2.90.9-7.0 %Basophils Percent Auto1.40.2-2.0 % Immature Granulocytes Pct Auto0.50.0-0.5 %Neutrophils Absolute Auto3.41.4-6.5 10 3/uLLymphocytes Absolute Auto1.71.2-3.8 10 3/uLMonocytes Absolute Auto0.50.3-0.8 10 3/uLEosinophils Absolute Auto0.20.0-0.7 10 3/uLBasophils Absolute Auto0.10.0- 0.1 10 3/uLImmature Granulocytes Abs Auto0.030.00-0.03 10 3/uLPerforming Lab:see noteML - [facility] LBCREATININE Reviewed date:07/02/2025 04:43:04 PM Interpretation: Performing Lab: Notes/Report: [facility] ,Creatinine0.740.55-1.02 mg/dLEstimated GFR ( Radha>60>=60 mL/min/1.73m 2Estimated GFR (Non- Afia>60>=60 mL/min/1.73m 2Performing Lab:see noteML - [facility] LBCALCIUM Reviewed date:07/02/2025 04:43:04 PM Interpretation: Performing Lab: Notes/Report: [facility] ,Calcium9.28.5-10.1 mg/dLPerforming Lab:see noteML - [facility] LB Reason For Referral Reason Fh colon cancer - ne eds colonoscopy Diagnosis 1 Well adult (Z00.00) Referral Organization [facility] Referring Provider First Name Ryder Referring Provider Last Name Lorrie Referring Provider Speciality [facility] wendy Referred Provider Dakota King Referred Provider [...] in the past year?Less than monthly (1 point)Fkatxt1Vtyobacwukacxk NegativeAUDIT-C (Standard) Question Answer Notes Did you have a drink containing alcohol in the p ast year? No Aasgcz8AnnamlayyrtiaeGhbmwvmm Problems Problem Type SNOMED Code ICD Code Onset Dates Problem Status W/U Status Risk Notes Problem Depression (703924611) Depression (F32.9) ActiveconfirmedProblemOsteoporosis (80557587)Osteoporosis (M81.0)Activeconfirmed ProblemWell adult (301986130)Well adult (Z00.00)ActiveconfirmedProblem hypercholesterolemia (disorder) (86210653)Hypercholesteremia (E78.00)Active confirmed Vital Signs Blood pressure diastolic 88 mm Hg 05/09/2025 Htlmnj92 in05/09/2025lood pressure yogqudwk304 mm Hg05/09/20250510Dkjizk558.0 lbs 05/09/2025BMI32.12 kg/m205/09/2025 Encounters Encounter Location Date Provider Diagnosis [facility] [address] [place] [address] 01/02/2025 Ryder Lux Abnormal mammogram o f left breast R92.8 [facility] [address] [place] [address] 01/25/2025 Ryder Loray [facility] [place] [address] 2025[facility] [place] [address]/16/2025Doug [facility] [place] [address]/16/2025[facility] ; Hypercholesteremia E78.00 ; Depression F32.9 and Osteoporosis M81.0 Assessments Encounter Date Diagnosis (ICD Code) Assessment Notes Treatment Notes Treatment Clinical Notes Section Notes 05/09/2025 Well adult (ICD-10 - Z00.00) 05/09/2025Hypercholesteremia (ICD-10 - E78.00)01/02/2025bnormal mammogram of left breast (ICD-10 - R92.8)05/09/2025Depression (ICD-10 - F32.9)05/09/2025 Osteoporosis (ICD-10 - M81.0) Plan Of Treatment Pending Test Test Name Order Date CMP (COMPLETE METABOLIC PANEL) 3 CMP (COMPLETE METABOLIC PANEL) 4 HEMOGLOBIN A1C (GLYCO) 05/09/2025 HEMOGLOBIN A1C (GLYCO) 01/09/2023 HEMOGLOBIN A1C (GLYCO) 01/13/2024 IRON, TOTAL 01/09/2023 IRON, TOTAL 05/09/2025 IRON, TOTAL 01/13/2024 LIPID PANEL (CHOL/TRIG/HDL/LDL) 01/13/20 24 LIPID PANEL (CHOL/TRIG/HDL/LDL) 01/10/20 23 LIPID PANEL (CHOL/TRIG/HDL/LDL) 05/09/20 25 CBC WITH DIFF (EXP 06/2025) 01/09/2023 CBC WITH DIFF (EXP 06/2025) 01/13/2024 VITAMIN D, 25 LEVEL (TOTAL) 01/09/2023 Insulin Level 01/09/2023 MG MAMM DX 3D LT CAD 01/02/2025 XR DEXA BONE DENSITY 05/09/2025 THYROID PANEL (T4/TSH/FREE T3) 3 THYROID PANEL (T4/TSH/FREE T3) 4 THYROID PANEL (T4/TSH/FREE T3) 5 US BREAST COMPLETE LEFT 01/02/2025 CMP (COMP MET ARAGON) w/eGFR CKD-EPI 2024 CBC WITH DIFF 05/09/2025 Insurance Providers Payer Name Payer Address Payer Phone Subscriber Number Group Number Insured Name Patient Relationship to Insured Coverage Start Date Coverage End Date MMO ADVANTAGE CHOICE MEDICAR E HMO [address] [place] [address] [id number] Alejo Neal - patient is the insured Medical (General) History Medical History History ICD Code Sleep apnea, unspecified G47.30 Hypercholesteremia E78.00 Anxiety disorder, unspecified F41.9 Insomnia, unspecified G47.00 Surgical History Surgery Date(Month/Year) Colonoscopy- Dr King 07/05/2025 Nasal surgery Hysterectomy
--- OUTSIDE RECORDS SUMMARY | 2025-07-26 19:22 | XMS_ITS | Encounter Summary ---
Author Organization [facility] Address [address] [facility] [place] [address] Care Team Providers Care Electric Tool Repairer Name Role Phone Ramon Andrew MD Primary Care Provider [phone] Encounter Details DateTypeDepartmentCare Team (Latest Contact Info)Xxyuxjxijss74/27/2025Travel Social History Tobacco UseTypesPacks/DayYears UsedDateSmoking Tobacco: Never Assessed CommentsUnknownSex and Gender InformationValueDate RecordedSex Assigned at Upwmmp4002/11/2023 7:59 PM EDTLegal CtmNfmrpr44/15/2023 7:03 PM EDTGender Identity Hocadf4602/11/2023 7:59 PM EDTSexual OcqirdjbgobIbqjlous94/21/2023 7:59 PM EDT documented as of this encounter Plan of Treatment Not on file documented as of this encounter Visit Diagnoses Not on filedocumented in this encounter Care Teams Team MemberRelationshipSpecialtyStart DateEnd Date Ramon Andrew MD [address] [place] [address] PCP - GeneralFamily Medicine02/12/23documented as of this encounter
--- OUTSIDE RECORDS SUMMARY | 2025-07-26 19:22 | XMS_ITS | Encounter Summary ---
Author Organization [facility] Address [address] [facility] [place] [address] Care Team Providers Care Liquor Tester Name Role Phone Ramon Andrew MD Primary Care Provider [phone] Encounter Details DateTypeDepartmentCare Team (Latest Contact Info)Uffnoenuqwu96/03/2025Bamboo flowsheet [facility] [address] [place] [address] Elizabeth Crockett PA [address] [place] [address] Social History Tobacco UseTypesPacks/DayYears UsedDateSmoking Tobacco: NeverSmokeless Tobacco: NeverCommentsNoSex and Gender InformationValueDate RecordedSex Assigned at McrbnTnyazx52/21/2023 7:59 PM EDTLegal JgqUossfi88/15/2023 7:03 PM EDTGender DmcqhinqEujmhd39/21/2023 7:59 PM EDTSexual FdqcamkqphbHpwqkxwv92/21/2023 7:59 PM EDTdocumented as of this encounter Plan of Treatment Not on file documented as of this encounter Visit Diagnoses Not on filedocumented in this encounter Care Teams Team MemberRelationshipSpecialtyStart DateEnd Ramon Andrew MD [address] [facility] [place] [address] PCP - GeneralFamily Medicine02/12/23documented as of this encounter
== END 2025-07-26 19:18 | disposition home or self-care (01) ==
LOC: LAB 19:17
PROVIDERS: PCP Family Medicine; Visit Provider Physician Assistant
DX: Z01.419 Encounter for gynecological examination (general) (routine) without abnormal findings (principal)
CPT/HCPCS: 88175